=== PATIENT | male | born 1955 | race Caucasian/White ===

== ENCOUNTER 2023-03-13 09:51 | Inpatient (IN) ==
[2023-03-13 10:39] LABS: Basophils # (auto) 0.08 K/uL (0.00-0.20); Basophils % (auto) 0.8 %; Eosinophils # (auto) 0.13 K/uL (0.00-0.50); Eosinophils % (auto) 1.4 %; Hematocrit (blood only) 38.2 % (42.0-52.0); Hemoglobin 12.5 g/dl (14.0-18.0); Immature Granulocytes # (auto) 0.06 K/uL (0.01-0.20); Immature Granulocytes % (auto) 0.6 %; Lymphocytes # (auto) 1.18 K/uL (1.20-3.40); Lymphocytes % (auto) 12.5 %; Mean Corpuscular Hemoglobin 26.7 pg (25.0-34.0); Mean Corpuscular Hgb Conc 32.7 g/dL (32.0-36.0); Mean Corpuscular Volume 81.6 fL (80.0-100.0); Mean Platelet Volume 9.9 fL (9.4-12.4); Monocytes # (auto) 0.91 K/uL (0.11-0.59); Monocytes % (auto) 9.6 %; Neutrophils % (auto) 75.1 %; Platelet Count 300 K/uL (130-400); RDW Coefficient of Variation 13.3 % (11.5-14.5); RDW Standard Deviation 39.8 fL (36.4-46.3); Red Blood Count 4.68 M/uL (4.70-6.10); White Blood Count 9.46 K/ul (4.8-10.8)
[2023-03-13 10:57] LABS: Albumin Globulin Ratio 1.1 (0.9-2); Albumin Level 4.2 gm/dl (3.4-5.0); BUN Creatinine Ratio 20.3 (10-20); Bilirubin,Total 0.7 mg/dl (0.2-1.0); Creatinine Clr Calc Pharmacy 65.9 ml/min; Est GFR (Non-African American) 60.4 ml/min; Total Protein 8.2 gm/dl (6.0-8.3)
--- NOTE | 2023-03-13 12:46 | Emergency Department Note ---
Impression & Plan Left buttock abscess ADMIT ED Provider Note HPI: History obtained from patient. The patient is a 68-year-old gentleman who presents emergency department with chief complaint of left-sided irritation and pain on the skin of his buttocks. Patient states is been ongoing for about the past 3 days. Patient states he did notice a lump in this area about 1 week ago, patient states that it just became painful over the past 3 days. Patient states that he had an appointment today as an outpatient to see general surgery, he was assessed by Dr. Forbes and sent to the ER for CT imaging to rule out perirectal abscess. Patient states that he has been on an outpatient course of doxycycline for the past 5 days that was prescribed by PCP. On arrival here to the ED the patient is hemodynamically stable, he is in no acute distress on my initial assessment, he denies any perirectal pain or irritation, denies any pain with defecation. ROS: - Per HPI Differential Diagnosis: Perirectal abscess, cellulitis, necrotizing soft tissue infection, rectal fistula, amongst other potential pathologies. *Outpatient medications and allergy history reviewed. *Pertinent external medical records reviewed PE: General: Alert HEENT: Normocephalic, trachea midline Eyes: Extraocular eye movement is intact, no scleral erythema Pulmonary: Clear to auscultation bilaterally, no wheezing Cardio: Regular rate and rhythm GI: Abdomen is soft to palpation, noninvasive gross rectal examination does not show any evidence of any obvious fluctuant mass or hemorrhoid, no evidence of any gross bleeding is visualized : No suprapubic tenderness MSK: No evidence of trauma or malformation of the extremities, no edema Skin: There is tenderness and overlying erythema with moderate fluctuance to the left gluteal fold without any purulent drainage Neuro: Alert, no focal deficits Psychiatric: Cooperative INDEPENDENT INTERPRETATIONS: cardiac monitor technician: (As interpreted by myself): - An order was placed for continuous cardiac monitoring - Patient was noted to be in sinus rhythm with a rate of 90 Interventions provided in ED: -IV Zosyn, IV fluid Medical Decision Making: Shortly after the patient arrived IV was established lab work obtained, patient was placed on lunchroom monitor. Lab work shows no leukocytosis, hemoglobin is 12.5, platelet count is normal, CMP shows mildly elevated BUN at 25, no evidence of any critical abnormalities are otherwise noted. CT imaging of the abdomen pelvis was obtained that shows evidence of cellulitic changes of the left buttocks area with an underlying abscess measuring approximately 6 cm in diameter. I discussed the above findings with the on-call general surgery physician producer assistant, Sanam Jaime, and they are in agreement for consultation under the service of Dr. Russell. Admission was recommended following my discussion to the medicine service for initiation of IV antibiotics given overlying cellulitis and operative intervention will be arranged on an inpatient basis. Patient is in agreement to this plan. He is otherwise hemodynamically stable and in no acute distress. He was initiated on IV Zosyn and blood cultures were drawn in the ED. Case was discussed with the on-call midlevel provider for the [facility] hospitalist service, the patient was admitted to the hospitalist service in stable condition for further management and general surgery consultation. Consultants/Discussions held with other healthcare providers: -General surgery, Sanam Monteiro PA-C / Dr. Russell -Hospitalist service, Dr. Maddox Disposition discussion held by myself with: -Patient Diagnosis: 1. Abscess of the left buttocks, acute 2. Cellulitis of the left buttocks, acute Disposition: Admission Ronny Grady DO Emergency Medicine Past Med/Surg History Medical History GERD without esophagitis Prediabetes Dyslipidemia Essential hypertension Mild obstructive sleep apnea Right retinal detachment Surgical History History of inguinal hernia repair History of vitrectomy History of appendectomy Family History Other Cancer Heart disease Hypertension Social History Smoking Status: Never smoker Feels Safe at Home: Yes Allergies Allergies Allergy/AdvReac Type Severity Reaction Status Date / Time No Known Drug Allergies Allergy Unknown . Verified 03/13/23 13:36 Home Meds Home Medications Medication Instructions Recorded Confirmed krill 500 mg-omega-3 150 mg-dha 45 1 cap PO QAM ##0 07/14/15 03/13/23 mg-epa 75 [id number] capsule (krill oil) atorvastatin 20 mg tablet 20 mg PO QAM 03/13/23 03/13/23 cyanocobalamin (vitamin B-12) 1,000 mcg PO QAM 03/13/23 03/13/23 1,000 mcg tablet (Vitamin B-12) doxycycline hyclate 100 mg capsule 100 mg PO BID 03/13/23 03/13/23 lisinopril 20 mg tablet 20 mg PO HS 03/13/23 03/13/23 lisinopril 20 1 tab PO QAM 03/13/23 03/13/23 mg-hydrochlorothiazide 25 mg tablet metformin 500 mg tablet,extended 1,500 mg PO QAM 03/13/23 03/13/23 release 24 hr paroxetine HCl 40 mg tablet 40 mg PO QAM 03/13/23 03/13/23 Results & Data (ED) Vital Signs Vital Signs - 24 hr 03/13/23 09:58 03/13/23 13:40 03/13/23 15:39 Temperature 36.9 C 36.8 C Temperature Source Temporal Artery Scan Oral Pulse Rate 101 H Pulse Rate [Left] 86 89 Respiratory Rate 20 18 20 Respiratory Effort / Characteristics Non-Labored Non-Labored Non-Labored Respiratory Depth Normal Normal Normal Respiratory Pattern Regular Blood Pressure 123/67 Blood Pressure [Left Arm] 162/81 H 133/72 Blood Pressure Mean 85 Blood Pressure Mean [Left Arm] 108 92 Pulse Oximetry 97 97 95 Oxygen Delivery Method Room Air Room Air Room Air Sepsis Recent Fever Within 48 Hours No Sepsis New/Unexplained Change in Mental Status No Sepsis Action Taken by Nursing No Action Required Laboratory Data 03/13/23 10:22 03/13/23 10:22 Lab Results 03/13/23 Range/Units 10:22 WBC 9.46 (4.8-10.8) K/ul RBC 4.68 L (4.70-6.10) M/uL Hgb 12.5 L (14.0-18.0) g/dl Hct 38.2 L (42.0-52.0) % MCV 81.6 (80.0-100.0) fL MCH 26.7 (25.0-34.0) pg MCHC 32.7 (32.0-36.0) g/dL RDW Std Deviation 39.8 (36.4-46.3) fL RDW Coeff of Drew 13.3 (11.5-14.5) % Plt Count 300 (130-400) K/uL MPV 9.9 (9.4-12.4) fL Immature Gran % (Auto) 0.6 % Neut % (Auto) 75.1 % Lymph % (Auto) 12.5 % [place] % (Auto) 9.6 % Eos % (Auto) 1.4 % Baso % (Auto) 0.8 % Neut # (Auto) 7.10 H (1.40-6.50) K/uL Lymph # (Auto) 1.18 L (1.20-3.40) K/uL [place] # (Auto) 0.91 H (0.11-0.59) K/uL Eos # (Auto) 0.13 (0.00-0.50) K/uL Baso # (Auto) 0.08 (0.00-0.20) K/uL Immature Gran # (Auto) 0.06 (0.01-0.20) K/uL Sodium 136 (136-145) mmol/L Potassium 4.0 (3.5-5.1) mmol/L Chloride 101 (98-107) mmol/L Carbon Dioxide 25 (21-32) mmol/L Anion Gap 10 (3-11) BUN 25 H (6-23) mg/dl Creatinine 1.23 (0.6-1.4) mg/dl Est Cr Clr Drug Dosing 65.9 ml/min Est GFR ( Amer) 70.0 ml/min Est GFR (Non-Af Amer) 60.4 ml/min BUN/Creatinine Ratio 20.3 H (10-20) Glucose 136 H (70-99(Fasting)) mg/dl Calcium 9.0 (8.6-10.3) mg/dl Total Bilirubin 0.7 (0.2-1.0) mg/dl AST 15 (13-39) U/L ALT 17 (7-52) U/L Alkaline Phosphatase 59 (34-104) U/L Total Protein 8.2 (6.0-8.3) gm/dl Albumin 4.2 (3.4-5.0) gm/dl Globulin 4.0 (2.5-4.0) gm/dl Albumin/Globulin Ratio 1.1 (0.9-2) Administered Medications Discontinued Medications Sodium Chloride (Nss) 500 mls @ 999 mls/hr IV .Q31M ONE Stop: 03/13/23 15:45 Last Infusion: 03/13/23 16:43 Dose: Infused Documented By: Admin: 03/13/23 15:48 Dose: 999 mls/hr Documented By: PAULINA Piperacillin Sod/Tazobactam Sod (Zosyn) 4.5 gm in 100 mls @ 200 mls/hr IV NOW ONE Stop: 03/13/23 15:44 Last Infusion: 03/13/23 16:43 Dose: Infused Documented By: Admin: 03/13/23 15:48 Dose: 200 mls/hr Documented By: PAULINA Ioversol (Optiray 320 100ml) 93 ml IV ONCE ONE Stop: 03/13/23 14:05 Last Admin: 03/13/23 14:05 Dose: 93 ml Documented By: [employer] Imaging Data Radiologist's Impression: Abdomen/Pelvis CT 03/13/23 12:23 CT SCAN OF THE ABDOMEN AND PELVIS WITH IV CONTRAST CLINICAL HISTORY: Perirectal cellulitis/abscess. COMPARISON STUDY: No priors. TECHNIQUE: Following the IV administration of 93 cc of Optiray 320, CT scan of the abdomen and pelvis is performed from the lung bases to the proximal femora. Images are reviewed in the axial, sagittal, and coronal planes. IV contrast was administered without complication. A dose lowering technique was utilized adhering to the principles of ALARA. CT DOSE: 276.52 mGy.cm FINDINGS: Lung bases: The heart is normal in size and without pericardial effusion. The coronary arteries are densely calcified. There is a small hiatal hernia. There is mild bibasilar atelectasis. The lung bases are otherwise clear. Liver: The contrast-enhanced liver is normal in size, contour, and attenuation. There is no intrahepatic biliary ductal dilatation. The hepatic veins and portal veins are patent. Gallbladder: Unremarkable. Spleen: Normal in size and attenuation. Pancreas: Unremarkable. Adrenal glands: Unremarkable. Kidneys: The contrast enhanced kidneys are normal in size and without hydronephrosis. The kidneys enhance symmetrically. Abdominal vasculature: The abdominal aorta is normal in course and caliber noting mild atherosclerotic calcification. Bowel: There is no bowel obstruction. Mild fecal retention is seen throughout the colon. The appendix is not visualized. Peritoneum: There is no intraperitoneal free air or abdominal ascites. There is a fat-containing umbilical hernia. Lymphadenopathy: None. Pelvic viscera: The prostate gland is enlarged and heterogeneous. The bladder is decompressed, and the wall is thickened/trabeculated indicating chronic outlet obstruction. Skeletal structures: No lytic or blastic lesions are seen. Soft tissues: There is significant soft tissue infiltration and normal thickening identified in the left mid to lower buttock. There is a loculated fluid collection identified in the medial left buttock along the inferior gluteal crease. This measures 5.5 x 6.0 x 2.6 cm as seen on image #23 of the perineal series. This approaches the inferior aspect of the anal ring at the 5:00 position. The collections located below the levator musculature. No soft tissue gas is seen. IMPRESSION: 1. Severe cellulitis of the left buttock with an abscess located along the inferior left gluteal crease as detailed above. 2. Advanced coronary artery atherosclerosis. Consider nonemergent follow up with cardiology. 3. Additional findings as above. ACT 112: Negative or not required by law. Electronically signed by: Grady Harrington M.D. 03/13/2023 2:29 PM Discharge Plan Visit Data Chief Complaint: Pilonidal Cyst Stated Complaint: DOC REF,POSS CYST/ABSCESS ON RECTAL ED Provider: Ronny Grady Discharge Problem: Left buttock abscess Discharge Instructions Interventions: ED Discharge Assessment Last Done: 03/13/23 18:12 Forms Stand Alone Forms: My [facility] [email or web address] Prescriptions Prescriptions: No Action krill oil [id number] mg Capsule 1 cap PO QAM Qty: 0 doxycycline hyclate 100 mg capsule 100 mg PO BID Rx Instructions: Start Date 03/07/23 - End Date 03/17/23 atorvastatin 20 mg tablet 20 mg PO QAM lisinopril 20 mg tablet 20 mg PO HS cyanocobalamin (vitamin B-12) [Vitamin B-12] 1,000 mcg Tablet 1,000 mcg PO QAM lisinopril-hydrochlorothiazide 20-25 mg tablet 1 tab PO QAM paroxetine HCl 40 mg tablet 40 mg PO QAM metformin 500 mg tablet extended release 24 hr 1,500 mg PO QAM Referrals Referrals: Te Lassiter MD [Primary Care Provider] -
[2023-03-13] MEDS ORDERED: OPTIRAY 320 100ml IV ONE (14:04)
--- NOTE | 2023-03-13 14:31 | CT Scan Report ---
CT SCAN OF THE ABDOMEN AND PELVIS WITH IV CONTRAST CLINICAL HISTORY: Perirectal cellulitis/abscess. COMPARISON STUDY: No priors. TECHNIQUE: Following the IV administration of 93 cc of Optiray 320, CT scan of the abdomen and pelvi s is performed from the lung bases to the proximal femora. Images are reviewed in the axial, sagittal , and coronal planes. IV contrast was administered without complication. A dose lowering technique wa s utilized adhering to the principles of ALARA. CT DOSE: 276.52 mGy.cm FINDINGS: Lung bases: The heart is normal in size and without pericardial effusion. The coronary arteries are d ensely calcified. There is a small hiatal hernia. There is mild bibasilar atelectasis. The lung bases are otherwise clear. Liver: The contrast-enhanced liver is normal in size, contour, and attenuation. There is no intrahepa tic biliary ductal dilatation. The hepatic veins and portal veins are patent. Gallbladder: Unremarkable. Spleen: Normal in size and attenuation. Pancreas: Unremarkable. Adrenal glands: Unremarkable. Kidneys: The contrast enhanced kidneys are normal in size and without hydronephrosis. The kidneys enh ance symmetrically. Abdominal vasculature: The abdominal aorta is normal in course and caliber noting mild atheroscleroti c calcification. Bowel: There is no bowel obstruction. Mild fecal retention is seen throughout the colon. The appendix is not visualized. Peritoneum: There is no intraperitoneal free air or abdominal ascites. There is a fat-containing umbi lical hernia. Lymphadenopathy: None. Pelvic viscera: The prostate gland is enlarged and heterogeneous. The bladder is decompressed, and th e wall is thickened/trabeculated indicating chronic outlet obstruction. Skeletal structures: No lytic or blastic lesions are seen. Soft tissues: There is significant soft tissue infiltration and normal thickening identified in the l eft mid to lower buttock. There is a loculated fluid collection identified in the medial left buttock along the inferior gluteal crease. This measures 5.5 x 6.0 x 2.6 cm as seen on image #23 of the melvin dl series. This approaches the inferior aspect of the anal ring at the 5:00 position. The collectio ns located below the levator musculature. No soft tissue gas is seen. IMPRESSION: 1. Severe cellulitis of the left buttock with an abscess located along the inferior left gluteal crea se as detailed above. 2. Advanced coronary artery atherosclerosis. Consider nonemergent follow up with cardiology. 3. Additional findings as above. ACT 112: Negative or not required by law. Electronically signed by: Grady Harrington M.D. 03/13/2023 2:29 PM
[2023-03-13] MEDS ORDERED: SODIUM CHLORIDE 0.9% 500 ML IV ONE (15:15)
[2023-03-13] MEDS ORDERED: PIPERACILLIN/TAZOBACTAM 4.5 GM/100 ML BAG IV ONE (15:15)
--- NOTE | 2023-03-13 15:45 | History & Physical Report ---
Date of Service March 13, 2023 Assessment & Plan (1) Left buttock abscess: Plan: This is a 68 y/o male with a history of HTN, prediabetes, MORIS on CPAP, dyslipidemia, GERD, and right retinal detachment who presented to the ED today with worsening lump in his left buttock. Imaging in the ED reveals left buttock abscess with overlying left buttock cellulitis. Afebrile, normal WBC count. Pt has failed course of outpatient antibiotics and instead is worsening. - Admit to med surg floor - IV antibiotic coverage - will continue Zosyn for now - Surgical evaluation pending - per ED provider's conversation with surgery, potential drainage tonight or tomorrow. Will keep pt NPO until seen by surgery in case able to be done tonight. - Labs in AM - CBC, BMP (2) Cellulitis of left buttock: (3) Prediabetes: Plan: BSG ACHS Insulin sliding scale - holding Metformin Diabetic diet once able to eat A1c in the AM (4) Dyslipidemia: (5) Essential hypertension: (6) Mild obstructive sleep apnea: Plan: He uses CPAP at home but declines need to use it while here. (7) GERD without esophagitis: Plan Pt seen and reviewed with collaborating physician, Dr. Maddox. Plan of care discussed and as outlined above. Code Status: Full code DVT Prophylaxis: Isai Osorio PA-C History of Present Illness Chief Complaint: left buttock abscess Primary Care Provider: Te Lassiter MD This is a 68 y/o male with a history of HTN, prediabetes, MORIS on CPAP, dyslipidemia, GERD, and right retinal detachment who presented to the ED today with worsening lump in his left buttock. Pt reports that he noted an indurated area in his left buttock just over a week ago but it was only a few cm in diameter. He saw someone is his PCP office on 03/07 and was placed on doxycycline, referred for outpatient surgical evaluation. For the first few days on the antibiotic, he didn't notice a significant change but over the last 2-3 days he has noted enlargement of the indurated area, increasing pain, and the development of overlying redness that was not there initially. He denies documented fevers but has had chills, malaise, and fatigue over the last few days. He has never had anything like this previously. He denies rectal pain or difficulties with moving bowels. No drainage from the area. He has been using warm compresses to try to help it drain. He denies chest pain, dyspnea, palpitations, syncope, N/V/D. He does not check his blood sugars at home. Allergies Allergy/AdvReac Type Severity Reaction Status Date / Time No Known Drug Allergies Allergy Unknown . Verified 03/13/23 13:36 Home Medications Medication Instructions Recorded Confirmed Type krill 500 mg-omega-3 150 mg-dha 45 1 cap PO QAM ##0 07/14/15 03/13/23 History mg-epa 75 [id number] capsule (krill oil) atorvastatin 20 mg tablet 20 mg PO QAM 03/13/23 03/13/23 History cyanocobalamin (vitamin B-12) 1,000 mcg PO QAM 03/13/23 03/13/23 History 1,000 mcg tablet (Vitamin B-12) doxycycline hyclate 100 mg capsule 100 mg PO BID 03/13/23 03/13/23 History lisinopril 20 mg tablet 20 mg PO HS 03/13/23 03/13/23 History lisinopril 20 1 tab PO QAM 03/13/23 03/13/23 History mg-hydrochlorothiazide 25 mg tablet metformin 500 mg tablet,extended 1,500 mg PO QAM 03/13/23 03/13/23 History release 24 hr paroxetine HCl 40 mg tablet 40 mg PO QAM 03/13/23 03/13/23 History Past Med/Surg History Medical History GERD without esophagitis Prediabetes Dyslipidemia Essential hypertension Mild obstructive sleep apnea Right retinal detachment Surgical History History of inguinal hernia repair History of vitrectomy History of appendectomy Family History Other Cancer Heart disease Hypertension Social History Smoking Status: Never smoker Feels Safe at Home: Yes Review of Systems Review of Systems: All systems reviewed & are unremarkable except as noted in HPI & below Constitutional: + chills, + fatigue and + malaise; no fe julia Ear, Nose, Mouth, Throat: no nasal congestion and no sore throat Respiratory: no cough and no dyspnea Cardiovascular: no chest pain, no palpitations, no syncope and no edema Gastrointestinal: no abdominal pain, no nausea, no vomiting and no diarrhea/loose stools Genitourinary: no dysuria or no hematuria Musculoskeletal: no back pain, no neck pain and no joint pain Integumentary: as per Subjective / HPI Neurologic: no generalized weakness, no dizziness and no headache(s) Psychiatric: no depression and no anxiety Physical Exam Physical Exam: General: awake, alert, NAD Eyes: no scleral icterus Mouth: moist mucus membranes Neck: trachea midline Heart: RRR, no M/G/R Lungs: CTA bilaterally, no W/R/R Abd: soft, NT, +BS Extremities: no pedal edema, distal pulses intact and equal Skin: see physician note for examination of buttocks Results & Data Results & Data Vital Signs (Past 12 Hours) Vital Signs Temp Pulse Pulse Resp BP BP Pulse Ox 03/13/23 13:40 36.8 C 86 18 162/81 H 97 03/13/23 09:58 36.9 C 101 H 20 123/67 97 O2 Del Method 03/13/23 13:40 Room Air 03/13/23 09:58 Room Air Laboratory Results Laboratory Results - last 24 hr 03/13/23 10:22 WBC 9.46 RBC 4.68 L Hgb 12.5 L Hct 38.2 L MCV 81.6 MCH 26.7 MCHC 32.7 RDW Std Deviation 39.8 RDW Coeff of Drew 13.3 Plt Count 300 MPV 9.9 Immature Gran % (Auto) 0.6 Neut % (Auto) 75.1 Lymph % (Auto) 12.5 [place] % (Auto) 9.6 Eos % (Auto) 1.4 Baso % (Auto) 0.8 Neut # (Auto) 7.10 H Lymph # (Auto) 1.18 L [place] # (Auto) 0.91 H Eos # (Auto) 0.13 Baso # (Auto) 0.08 Immature Gran # (Auto) 0.06 Sodium 136 Potassium 4.0 Chloride 101 Carbon Dioxide 25 Anion Gap 10 BUN 25 H Creatinine 1.23 Est Cr Clr Drug Dosing 65.9 Est GFR ( Amer) 70.0 Est GFR (Non-Af Amer) 60.4 BUN/Creatinine Ratio 20.3 H Glucose 136 H Calcium 9.0 Total Bilirubin 0.7 AST 15 ALT 17 Alkaline Phosphatase 59 Total Protein 8.2 Albumin 4.2 Globulin 4.0 Albumin/Globulin Ratio 1.1 Diagnostic Findings Abdomen/Pelvis CT 03/13/23 12:23 CT SCAN OF THE ABDOMEN AND PELVIS WITH IV CONTRAST CLINICAL HISTORY: Perirectal cellulitis/abscess. COMPARISON STUDY: No priors. TECHNIQUE: Following the IV administration of 93 cc of Optiray 320, CT scan of the abdomen and pelvis is performed from the lung bases to the proximal femora. Images are reviewed in the axial, sagittal, and coronal planes. IV contrast was administered without complication. A dose lowering technique was utilized adhering to the principles of ALARA. CT DOSE: 276.52 mGy.cm FINDINGS: Lung bases: The heart is normal in size and without pericardial effusion. The coronary arteries are densely calcified. There is a small hiatal hernia. There is mild bibasilar atelectasis. The lung bases are otherwise clear. Liver: The contrast-enhanced liver is normal in size, contour, and attenuation. There is no intrahepatic biliary ductal dilatation. The hepatic veins and portal veins are patent. Gallbladder: Unremarkable. Spleen: Normal in size and attenuation. Pancreas: Unremarkable. Adrenal glands: Unremarkable. Kidneys: The contrast enhanced kidneys are normal in size and without hydronephrosis. The kidneys enhance symmetrically. Abdominal vasculature: The abdominal aorta is normal in course and caliber noting mild atherosclerotic calcification. Bowel: There is no bowel obstruction. Mild fecal retention is seen throughout the colon. The appendix is not visualized. Peritoneum: There is no intraperitoneal free air or abdominal ascites. There is a fat-containing umbilical hernia. Lymphadenopathy: None. Pelvic viscera: The prostate gland is enlarged and heterogeneous. The bladder is decompressed, and the wall is thickened/trabeculated indicating chronic outlet obstruction. Skeletal structures: No lytic or blastic lesions are seen. Soft tissues: There is significant soft tissue infiltration and normal thickenin g identified in the left mid to lower buttock. There is a loculated fluid collection identified in the medial left buttock along the inferior gluteal crease. This measures 5.5 x 6.0 x 2.6 cm as seen on image #23 of the perineal series. This approaches the inferior aspect of the anal ring at the 5:00 position. The collections located below the levator musculature. No soft tissue gas is seen. IMPRESSION: 1. Severe cellulitis of the left buttock with an abscess located along the inferior left gluteal crease as detailed above. 2. Advanced coronary artery atherosclerosis. Consider nonemergent follow up with cardiology. 3. Additional findings as above. ACT 112: Negative or not required by law. Electronically signed by: Grady Harrington M.D. 03/13/2023 2:29 PM Medications Administered Discontinued Medications Ioversol (Optiray 320 100ml) 93 ml IV ONCE ONE Stop: 03/13/23 14:05 Last Admin: 03/13/23 14:05 Dose: 93 ml Documented By: GEP Supervising Physician Co-Signing Physician Notes 68-year-old male with PMH of HTN, prediabetes, MORIS on CPAP, HLD, GERD presented to the ED with worsening lump in his left buttock, ongoing for about a week per patient. Imaging reveals left buttock abscess with overlying cellulitis. He is admitted with surgical consult, IV Zosyn, pending I&D per surgery. Labs in AM. Resume home medications as able. On exam: GENERAL: Alert and oriented x3. NAD, on RA. HEENT: No pallor, no icterus. Pupils equal, round and reactive to light. Oral mucosa moist. NECK: No JVD, no neck masses. HEART: S1 and S2 heard. Regular rate and rhythm. No murmur, no gallop. RESPIRATORY SYSTEM: Normal AP diameter. No accessory muscle use. No wheezing, no crackles. ABDOMEN: Soft, bowel sounds present, nontender, no distention. CENTRAL NERVOUS SYSTEM: No facial droop. Speech is clear. Obeys simple commands. Moves extremities. EXTREMITIES: No edema, no erythema seen. Left buttock/gluteal fold with induration with overlying erythema/warmth/minimal tenderness. I have seen and examined the patient and have discussed the case with the provider above. I agree with the assessment and plan as stated.
--- NOTE | 2023-03-13 17:27 | Surgery Consultation ---
<Statement entered by Edwin Russell MD - 03/14/23 09:57> Patient seen and examined. Abscess will need to drained, timing dependent of medical condition. Agree with abx and plan above. Date of Consultation March 13, 2023 Assessment & Plan (1) Cellulitis of left buttock: (2) Left buttock abscess: Plan 68 year-old male with prediabetes presented to ED with worsening left buttock pain with palpable lump that started about 7 days ago and then increased in size with associated chills and malaise over weekend. CT scan of significant left buttock cellulitis and 5.x5 x 6.0 x 2.6 cm abscess approaching the anus. Exam is consistent with CT scan findings. Hemodynamically stable. Plan: Discussed with patient and his ct scan findings and need for I&D given large abscess along with IV antibiotics for the significant cellulitis. Will plan for I&D in operating room tomorrow. Okay for diet tonight, NPO after midnight pain management as needed IV Zosyn Discussed with Dr. Russell who agrees with above. History of Present Illness Reason for Consultation: Left buttock abscess with cellulitis Requesting Physician: LISSETH Osorio Attending Physician: Dr. Tan MD History of Present Illness Luis is a pleasant 68 year-old male with history of prediabetes< GERD, dyslipidemia, essential hypertensions, and MORIS who was referred here to ER for further evaluation of left buttock cellulitis and possible abscess by Dr. Forbes. States he noticed a small lump in the left buttock about 1 week ago and saw PCP office and started on Doxycycline last Monday and was referred to surgery for office visit this morning. States area significantly increased in size over weekend with associated tenderness, chills, and malaise. No drainage. No constipation, blood in stools, pus in stools or difficulty moving bowels. No prior similar history or similar pain ER work-up included labs which showed no leukocytosis, afebrile. CT scan of abdomen and pelvis with IV contrast showing significant soft tissue infiltration and normal thickening identified in the left mid to lower buttock. There is a loculated fluid collection identified in the medial left buttock along the inferior gluteal crease. This measures 5.5 x 6.0 x 2.6 cm as seen on image #23 of the perineal series. This approaches the inferior aspect of the anal ring at the 5:00 position. The collections located below the levator musculature. No soft tissue gas is seen. Currently states he is feeling okay, no severe buttock pain. Okay if lying on side, pain when sitting or any direct pressure to area. No n,v, no fevers or chills. Allergies Allergy/AdvReac Type Severity Reaction Status Date / Time No Known Drug Allergies Allergy Unknown . Verified 03/13/23 13:36 Home Medications Medication Instructions Recorded Confirmed Type krill 500 mg-omega-3 150 mg-dha 45 1 cap PO QAM ##0 07/14/15 03/13/23 History mg-epa 75 [id number] capsule (krill oil) atorvastatin 20 mg tablet 20 mg PO QAM 03/13/23 03/13/23 History cyanocobalamin (vitamin B-12) 1,000 mcg PO QAM 03/13/23 03/13/23 History 1,000 mcg tablet (Vitamin B-12) doxycycline hyclate 100 mg capsule 100 mg PO BID 03/13/23 03/13/23 History lisinopril 20 mg tablet 20 mg PO HS 03/13/23 03/13/23 History lisinopril 20 1 tab PO QAM 03/13/23 03/13/23 History mg-hydrochlorothiazide 25 mg tablet metformin 500 mg tablet,extended 1,500 mg PO QAM 03/13/23 03/13/23 History release 24 hr paroxetine HCl 40 mg tablet 40 mg PO QAM 03/13/23 03/13/23 History Patient History Medical History GERD without esophagitis Prediabetes Dyslipidemia Essential hypertension Mild obstructive sleep apnea Right retinal detachment Surgical History History of inguinal hernia repair History of vitrectomy History of appendectomy Family History Other Cancer Heart disease Hypertension Social History Smoking Status: Never smoker Feels Safe at Home: Yes Review of Systems Review of Systems: All systems reviewed & are unremarkable except as noted in HPI & below Physical Exam Constitutional: WD/WN, vitals as above cooperative and comfortable; no acute distress and not ill appearing Respiratory: normal respiratory effort, lungs clear to auscultation Cardiovascular: RRR, no murmur, no edema Musculoskeletal: Left buttock with significant induration and erythema with tenderness to palpation. Digital rectal examination not performed No drainage no skin necrosis Skin: no rashes, warm and dry Psychiatric: A+Ox3, euthymic affect Results & Data Vital Signs (Past 12 Hours) Vital Signs Temp Pulse Pulse Resp BP BP Pulse Ox 03/13/23 15:39 89 20 133/72 95 03/13/23 13:40 36.8 C 86 18 162/81 H 97 03/13/23 09:58 36.9 C 101 H 20 123/67 97 O2 Del Method 03/13/23 15:39 Room Air 03/13/23 13:40 Room Air 03/13/23 09:58 Room Air Laboratory Results 03/13/23 Range/Units 10:22 WBC 9.46 (4.8-10.8) K/ul RBC 4.68 L (4.70-6.10) M/uL Hgb 12.5 L (14.0-18.0) g/dl Hct 38.2 L (42.0-52.0) % MCV 81.6 (80.0-100.0) fL MCH 26.7 (25.0-34.0) pg MCHC 32.7 (32.0-36.0) g/dL RDW Std Deviation 39.8 (36.4-46.3) fL RDW Coeff of Drew 13.3 (11.5-14.5) % Plt Count 300 (130-400) K/uL MPV 9.9 (9.4-12.4) fL Immature Gran % (Auto) 0.6 % Neut % (Auto) 75.1 % Lymph % (Auto) 12.5 % [place] % (Auto) 9.6 % Eos % (Auto) 1.4 % Baso % (Auto) 0.8 % Neut # (Auto) 7.10 H (1.40-6.50) K/uL Lymph # (Auto) 1.18 L (1.20-3.40) K/uL [place] # (Auto) 0.91 H (0.11-0.59) K/uL Eos # (Auto) 0.13 (0.00-0.50) K/uL Baso # (Auto) 0.08 (0.00-0.20) K/uL Immature Gran # (Auto) 0.06 (0.01-0.20) K/uL Sodium 136 (136-145) mmol/L Potassium 4.0 (3.5-5.1) mmol/L Chloride 101 (98-107) mmol/L Carbon Dioxide 25 (21-32) mmol/L Anion Gap 10 (3-11) BUN 25 H (6-23) mg/dl Creatinine 1.23 (0.6-1.4) mg/dl Est Cr Clr Drug Dosing 65.9 ml/min Est GFR ( Amer) 70.0 ml/min Est GFR (Non-Af Amer) 60.4 ml/min BUN/Creatinine Ratio 20.3 H (10-20) Glucose 136 H (70-99(Fasting)) mg/dl Calcium 9.0 (8.6-10.3) mg/dl Total Bilirubin 0.7 (0.2-1.0) mg/dl AST 15 (13-39) U/L ALT 17 (7-52) U/L Alkaline Phosphatase 59 (34-104) U/L Total Protein 8.2 (6.0-8.3) gm/dl Albumin 4.2 (3.4-5.0) gm/dl Globulin 4.0 (2.5-4.0) gm/dl Albumin/Globulin Ratio 1.1 (0.9-2) Diagnostic Findings CT SCAN OF THE ABDOMEN AND PELVIS WITH IV CONTRAST CLINICAL HISTORY: Perirectal cellulitis/abscess. COMPARISON STUDY: No priors. TECHNIQUE: Following the IV administration of 93 cc of Optiray 320, CT scan of the abdomen and pelvis is performed from the lung bases to the proximal femora. Images are reviewed in the axial, sagittal, and coronal planes. IV contrast was administered without complication. A dose lowering technique was utilized adhering to the principles of ALARA. CT DOSE: 276.52 mGy.cm FINDINGS: Lung bases: The heart is normal in size and without pericardial effusion. The coronary arteries are densely calcified. There is a small hiatal hernia. There is mild bibasilar atelectasis. The lung bases are otherwise clear. Liver: The contrast-enhanced liver is normal in size, contour, and attenuation. There is no intrahepatic biliary ductal dilatation. The hepatic veins and portal veins are patent. Gallbladder: Unremarkable. Spleen: Normal in size and attenuation. Pancreas: Unremarkable. Adrenal glands: Unremarkable. Kidneys: The contrast enhanced kidneys are normal in size and without hydronephrosis. The kidneys enhance symmetrically. Abdominal vasculature: The abdominal aorta is normal in course and caliber noting mild atherosclerotic calcification. Bowel: There is no bowel obstruction. Mild fecal retention is seen throughout the colon. The appendix is not visualized. Peritoneum: There is no intraperitoneal free air or abdominal ascites. There is a fat-containing umbilical hernia. Lymphadenopathy: None. Pelvic viscera: The prostate gland is enlarged and heterogeneous. The bladder is decompressed, and the wall is thickened/trabeculated indicating chronic outlet obstruction. Skeletal structures: No lytic or blastic lesions are seen. Soft tissues: There is significant soft tissue infiltration and normal thicke teena identified in the left mid to lower buttock. There is a loculated fluid collection identified in the medial left buttock along the inferior gluteal crease. This measures 5.5 x 6.0 x 2.6 cm as seen on image #23 of the perineal series. This approaches the inferior aspect of the anal ring at the 5:00 position. The collections located below the levator musculature. No soft tissue gas is seen. IMPRESSION: 1. Severe cellulitis of the left buttock with an abscess located along the inferior left gluteal crease as detailed above. 2. Advanced coronary artery atherosclerosis. Consider nonemergent follow up with cardiology. 3. Additional findings as above.
[2023-03-13] MEDS ORDERED: GLUCOSE 40% GEL 15 GM TUBE PO PRN (18:56)
[2023-03-13] MEDS ORDERED: DEXTROSE 50% 50 ML SYRINGE IV PRN (18:56)
[2023-03-13] MEDS ORDERED: GLUCAGON FOR INJ 1 MG VIAL SQ PRN (18:56)
[2023-03-13] MEDS ORDERED: CARBOHYDRATES FOR HYPOGLYCEMIA PO PRN (18:56)
[2023-03-13] MEDS ORDERED: MoRPHine SULFATE 2 MG/ML CARP IV PRN (18:56)
[2023-03-13] MEDS ORDERED: MoRPHine SULFATE 4 MG/ML 1 ML CARP\\VIAL IV PRN (18:56)
[2023-03-13] MEDS ORDERED: GLUCOSE 10 TAB/TUBE PO PRN (18:56)
[2023-03-13] MEDS: INSULIN ASPART PER UNIT CHARGE SC SCH (20:22)
[2023-03-13] MEDS ORDERED: lisinopril 20 MG TAB PO SCH (21:00)
[2023-03-13] MEDS: PIPERACILLIN/TAZOBACTAM 4.5 GM in DEXTROSE 5% MINI-B 100 ML IV SCH (21:34)
[2023-03-14] MEDS: ACETAMINOPHEN 325 MG TAB PO PRN (00:38)
[2023-03-14] MEDS ORDERED: diphenhydrAMINE 50 MG/ML VIAL IV STA (04:30)
--- NOTE | 2023-03-14 04:31 | Communication Note ---
Date of Service: March 14, 2023 Patient with sudden onset left facial and lip swelling. No tongue swelling, rash, chest pain, SOB. No prior episodes as per patient. AP Angioedema possibly from ARLETH inhibitor medication Med telemetry transfer to monitor for airway compromise Stop lisinopril and add to ADR/allergy list CT face re: sudden onset right facial swelling Solu-Medrol and Benadryl 1 dose Outpatient allergy consult for angioedema Amlodipine in place of lisinopril for BP control
[2023-03-14] MEDS ORDERED: SODIUM CHLORIDE 0.9% 1,000 ML IV ONE (04:57)
[2023-03-14] MEDS ORDERED: methylPREDNISolone 40 MG in SYRINGE 0 ML IV STA (04:59)
[2023-03-14] MEDS ORDERED: OPTIRAY 320 100ml IV ONE (05:32)
[2023-03-14 06:09] LABS: Basophils # (auto) 0.08 K/uL (0.00-0.20); Basophils % (auto) 0.9 %; Eosinophils # (auto) 0.16 K/uL (0.00-0.50); Eosinophils % (auto) 1.7 %; Immature Granulocytes # (auto) 0.05 K/uL (0.01-0.20); Immature Granulocytes % (auto) 0.5 %; Mean Corpuscular Hemoglobin 26.9 pg (25.0-34.0); Mean Corpuscular Hgb Conc 33.3 g/dL (32.0-36.0); Mean Corpuscular Volume 80.7 fL (80.0-100.0); Mean Platelet Volume 9.8 fL (9.4-12.4); Monocytes % (auto) 10.7 %; Neutrophils # (auto) 6.65 K/uL (1.40-6.50); Neutrophils % (auto) 71.2 %; Platelet Count 298 K/uL (130-400); RDW Coefficient of Variation 13.3 % (11.5-14.5); RDW Standard Deviation 38.7 fL (36.4-46.3); Red Blood Count 4.46 M/uL (4.70-6.10); White Blood Count 9.34 K/ul (4.8-10.8)
[2023-03-14 06:17] LABS: Calcium 8.4 mg/dl (8.6-10.3); Creatinine Clr Calc Pharmacy 69.9 ml/min; Est GFR (African American) 75.1 ml/min; Est GFR (Non-African American) 64.8 ml/min; Potassium 3.6 mmol/L (3.5-5.1)
--- NOTE | 2023-03-14 07:16 | CT Scan Report ---
CT facial bones w con HISTORY: 68 years-old Male R swelling acute pain and swelling of the right face COMPARISON: None TECHNIQUE: Multiple axial CT images of the facial bones were obtained with the use of 91 mL Optiray 3 20. A dose lowering technique was used consistent with the principals of KEZIA. FINDINGS: The imaged intracranial structures demonstrate no acute abnormality. Streak artifact from dental amal diana hardware limits the study. Right-sided scleral banding with hyperdensity noted involving the righ t posterior chamber. There is moderate subcutaneous and deep tissue edema within the right mandibular tissues. No drainable fluid collection identified. Unremarkable parotid and submandibular glands. Th e mastoid air cells are clear. Minimal mucosal thickening of the inferior maxillary sinuses. Right ma xillary dental implants with right mandibular root canal. IMPRESSION: 1. Subcutaneous and deep tissue edema of the right mandibular tissues suggestive of cellulitis. No di screte abscess identified. 2. No lymphadenopathy. 3. Additional findings as above. ACT 112: Negative or not required by law. The above report was generated using voice recognition software. It may contain grammatical, syntax o r spelling errors. Electronically signed by: Thad Phillip M.D. 03/14/2023 7:14 AM
[2023-03-14 07:24] LABS: Estimated Average Glucose 128 mg/dl; Hemoglobin A1C 6.1 % (4.5-5.6)
--- NOTE | 2023-03-14 07:40 | Hospitalist Progress Note ---
Date of Service March 14, 2023 Assessment & Plan (1) Left buttock abscess: Plan: This is a 68 y/o male with a history of HTN, prediabetes, MORIS on CPAP, dyslipidemia, GERD, and right retinal detachment who presented to the ED today with worsening lump in his left buttock. Imaging in the ED reveals left buttock abscess with overlying left buttock cellulitis. Afebrile, normal WBC count. Pt has failed course of outpatient antibiotics and instead is worsening. -angioedema in response to zosyn with underlying ACEI administration. -both stopped, cipro/flagyl for infection -allergy consult-->feels this is 2/2 ACEI-->plans to see patient as outaptient and order C4 and tryptase levels off antihistamines. -cont to avoid PCN and ACEI at this point -I&D by surgery planned for 03/15 (2) Angioedema: Plan: likely 2/2 ACEI use, but possibly also related to Zosyn. Avoid both agents. A followup with sample checker in outpatient clinic (Dr. Crispin Parry) for further workup of cause. Cont cetirizine and prednisone taper. I went back and evaluated him this afternoon and swelling was almost gone with patient feeling much better. (3) Cellulitis of left buttock: (4) Prediabetes: Plan: BSG ACHS Insulin sliding scale - holding Metformin Diabetic diet once able to eat A1c in the AM (5) Essential hypertension: Plan: chronic, stable and at goal. Cont with HCTZ. Will need to replace ACEI at discharge with close primary care followup. (6) Mild obstructive sleep apnea: Plan: chronic, stable. He uses CPAP at home but declines need to use it while here. full Code SCDs given upcoming procedure Dispo-to home after I&D with recovery I spent a total [id number] coordinating, documenting, and providing care for this patient excluding time spent in the performance of separately billed services DO [facility] Hospitalist Plan Admission and Anticipated Discharge Date Admission Date: March 13, 2023 Subjective 68-year-old man presented with worsening painful lump in his left buttock ongoi ng for the past week found to have a left buttock abscess with overlying cellulitis Woke up with right-sided angioedema after administration of Zosyn empirically No historical penicillin allergy but reports his father has 1 Has been on an ARLETH inhibitor for a long period of time. Was administered Solu-Medrol and IV Benadryl with some improvement Deferred surgery until tomorrow. Patient feels his lip is improving with respect to numbness and swelling. Physical Exam Physical Exam: CONSTITUTIONAL: WNWD, vitals as above, generally well-appearing, NAD EYES: PERRL, normal conjunctivae, no scleral icterus ENT: external ear and nose normal, oropharynx clear, MMM, right lip and righ buccal swelling consistent with angioedema. Left side of face not involved. NECK: trachea midline RESPIRATORY: clear to auscultation bilaterally, no crackles, rales or wheezes, normal respiratory effort CARDIOVASCULAR: regular rate and rhythm, S1 and 2 heard without murmurs, gallops or rubs, no JVD, no peripheral edema CHEST: inspection of chest was normal GASTROINTESTINAL: soft, nontender, ND, no guarding MUSCULOSKELETAL: strength 5/5 throughout, head is normocephalic and atraumatic SKIN: warm and dry, left inferior gluteal abscess with overlying cellulitis NEUROLOGIC: CN 2-12 grossly intact, no sensory deficit, normal cognition, normal speech, no tremor PSYCHIATRIC: alert cooperative and oriented to person, place and time. Euthymic mood, makes good eye contact, language grossly intact, recent and remote memory grossly intact. Results & Data Results & Data Vital Signs (Past 12 Hours) Vital Signs Temp Pulse Pulse Pulse Resp BP Pulse Ox 03/14/23 05:59 03/14/23 05:38 83 03/14/23 05:31 37.2 C 82 14 132/72 94 03/14/23 05:31 03/13/23 19:57 37.5 C 88 18 118/69 94 Pulse Ox O2 Del Method O2 Del Method 03/14/23 05:59 Room Air 03/14/23 05:38 03/14/23 05:31 Room Air 03/14/23 05:31 94 Room Air 03/13/23 19:57 Room Air Laboratory Results Short CBC 03/13/23 03/14/23 Range/Units 10:22 05:40 WBC 9.46 9.34 (4.8-10.8) K/ul Hgb 12.5 L 12.0 L (14.0-18.0) g/dl Hct 38.2 L 36.0 L (42.0-52.0) % Plt Count 300 298 (130-400) K/uL BMP 03/13/23 03/14/23 10:22 05:40 Sodium 136 133 L Potassium 4.0 3.6 Chloride 101 100 Carbon Dioxide 25 23 BUN 25 H 22 Creatinine 1.23 1.16 Glucose 136 H 124 H Calcium 9.0 8.4 L Liver Function 03/13/23 Range/Units 10:22 Total Bilirubin 0.7 (0.2-1.0) mg/dl AST 15 (13-39) U/L ALT 17 (7-52) U/L Alkaline Phosphatase 59 (34-104) U/L Albumin 4.2 (3.4-5.0) gm/dl Diagnostic Findings Face CT 03/14/23 04:53 CT facial bones w con HISTORY: 68 years-old Male R swelling acute pain and swelling of the right face COMPARISON: None TECHNIQUE: Multiple axial CT images of the facial bones were obtained with the use of 91 mL Optiray 320. A dose lowering technique was used consistent with the principals of KEZIA. FINDINGS: The imaged intracranial structures demonstrate no acute abnormality. Streak artifact from dental amalgam hardware limits the study. Right-sided scleral banding with hyperdensity noted involving the right posterior chamber. There is moderate subcutaneous and deep tissue edema within the right mandibular tissues. No drainable fluid collection identified. Unremarkable parotid and submandibular glands. The mastoid air cells are clear. Minimal mucosal thickening of the inferior maxillary sinuses. Right maxillary dental implants with right mandibular root canal. IMPRESSION: 1. Subcutaneous and deep tissue edema of the right mandibular tissues suggestive of cellulitis. No discrete abscess identified. 2. No lymphadenopathy. 3. Additional findings as above. ACT 112: Negative or not required by law. The above report was generated using voice recognition software. It may contain grammatical, syntax or spelling errors. Electronically signed by: Thad Phillip M.D. 03/14/2023 7:14 AM Medications Administered Current Inpatient Medications Acetaminophen (Acetaminophen 325 Mg Tab) 650 mg PO Q4H PRN PRN Reason: pain/fever Stop: 04/12/23 18:55 Last Admin: 03/14/23 00:38 Dose: 650 mg Amlodipine Besylate (Amlodipine Besylate 5 Mg Tab) 2.5 mg PO HS EMMETT Stop: 04/13/23 20:59 Atorvastatin Calcium (Atorvastatin 20 Mg Tab) 20 mg PO QAM EMMETT Stop: 04/13/23 08:59 Dextrose (Dextrose 50% 50 Ml Syringe) 25 - 50 ml IV UD PRN; Protocol PRN Reason: Hypoglycemia Protocol Stop: 04/12/23 18:55 Glucagon (Glucagon For Inj 1 Mg Vial) 1 mg SQ UD PRN; Protocol PRN Reason: Hypoglycemia Protocol Stop: 04/12/23 18:55 Glucose (Glucose 10 Tab/Tube) 4 - 8 tab PO UD PRN; Protocol PRN Reason: Hypoglycemia Treatment Stop: 04/12/23 18:55 Glucose (Glucose 40% Gel 15 Gm Tube) 15 - 30 gm PO UD PRN; Protocol PRN Reason: Hypoglycemia Protocol Stop: 04/12/23 18:55 Piperacillin Sod/Tazobactam (Sod 4.5 gm/ Dextrose) 100 mls @ 25 mls/hr IV Q8H EMMETT; Protocol Stop: 03/20/23 19:59 Last Infusion: 03/14/23 02:00 Dose: Infused Sodium Chloride (Nss) 1,000 mls @ 80 mls/hr IV .[id number] ONE Stop: 03/14/23 17:26 Last Admin: 03/14/23 05:43 Dose: 80 mls/hr Insulin Aspart (Insulin Aspart Per Unit Charge) [facility] Stop: 04/12/23 20:59 Last Admin: 03/13/23 20:22 Dose: Not Given Miscellaneous (Carbohydrates For Hypoglycemia ) 15 - 30 gm PO UD PRN PRN Reason: Hypoglycemia Protocol Stop: 04/12/23 18:55 Morphine Sulfate (Morphine Sulfate 2 Mg/Ml Carp) 2 mg IV Q3H PRN PRN Reason: Moderate Pain (Scale 4, 5, 6) Stop: 03/27/23 18:55 Morphine Sulfate (Morphine Sulfate 4 Mg/Ml 1 Ml Carp\Vial) 4 mg IV Q3H PRN PRN Reason: Severe Pain (Scale 7, 8, 9,10) Stop: 03/27/23 18:55 Paroxetine HCl (Paroxetine Hcl 20 Mg Tab) 40 mg PO QAM [facility] Stop: 04/13/23 08:59 (2) Angioedema Encounter type: initial encounter Qualified Code(s): T78.3XXA - Angioneurotic edema, initial encounter
[2023-03-14] MEDS ORDERED: LISINOPRIL/HCTZ 20/25MG 1 TAB PO SCH (09:00)
[2023-03-14] MEDS: PIPERACILLIN/TAZOBACTAM 4.5 GM in DEXTROSE 5% MINI-B 100 ML IV SCH (09:01)
[2023-03-14] MEDS: INSULIN ASPART PER UNIT CHARGE SC SCH ×4 (09:41→21:00)
[2023-03-14] MEDS: PARoxetine HCL 20 MG TAB PO SCH (10:03)
[2023-03-14] MEDS: ATORVASTATIN 20 MG TAB PO SCH (10:03)
[2023-03-14] MEDS: CETIRIZINE HCL 10 MG TABLET PO SCH (10:04)
[2023-03-14] MEDS: predniSONE 20 MG TAB PO SCH (10:04)
[2023-03-14] MEDS: metroNIDAZOLE 500 MG/100 ML BAG IV SCH ×2 (10:04→16:07)
[2023-03-14] MEDS: CIPROFLOXACIN / D5W 400 MG/200 ML BAG IV SCH ×2 (10:58→20:50)
--- NOTE | 2023-03-14 11:54 | Surgery Progress Note ---
Date of Service March 14, 2023 Assessment & Plan (1) Left buttock abscess: Plan: in ICU medicine wishes to delay I&D will oplan for AM at 10AM Present on Admission?: Yes Admission and Anticipated Discharge Date Admission Date: March 13, 2023 Subjective Feels good in ICU with angioedema possibly zosyn no complaints Review of Systems Constitutional: no fever and no chills Ear, Nose, Mouth, Throat: + problem reported facial swelling Respiratory: no cough and no dyspnea Cardiovascular: no chest pain Gastrointestinal: no abdominal pain Genitourinary: + problem reported (pain and swelling be tter on abx); no dysuria Integumentary: + acne; no rash and no lesions Neurologic: no localized weakness and no generalized weakness Psychiatric: no behavioral changes Physical Exam Constitutional: WD/WN, vitals as above Respiratory: normal respiratory effort, lungs clear to auscultation Cardiovascular: RRR, no murmur, no edema Gastrointestinal (Abdomen): normal bowel sounds, soft, nontender, no hepatosplenomegaly Musculoskeletal: Head/Neck/Chest: normocephalic and head atraumatic Genitourinary: + perineal induration (abscess cavity; n o foul smell or signs of fascitis) Results & Data Vital Signs (Past 12 Hours) Vital Signs Temp Pulse Pulse Resp BP Pulse Ox Pulse Ox 03/14/23 11:43 79 14 118/72 92 03/14/23 11:43 83 03/14/23 09:29 83 03/14/23 05:59 03/14/23 05:38 83 03/14/23 05:31 37.2 C 82 14 132/72 94 03/14/23 05:31 94 O2 Del Method O2 Del Method 03/14/23 11:43 Room Air 03/14/23 11:43 03/14/23 09:29 03/14/23 05:59 Room Air 03/14/23 05:38 03/14/23 05:31 Room Air 03/14/23 05:31 Room Air
--- NOTE | 2023-03-14 17:15 | Allergy & Immunology Consult ---
Date of Consultation March 14, 2023 Assessment & Plan (1) Lip swelling: (2) Cellulitis of left buttock: (3) Left buttock abscess: Plan Patient presents with an episode of acute angioedema of unclear etiology. The differential diagnosis includes allergy to Zosyn, lisinopril induced angioedema, idiopathic angioedema, acquired angioedema, hereditary angioedema, mast cell disorder. I suspect lisinopril/ARLETH-induced angioedema is the most likely culprit. It is very common that this can occur even in patients who have been on lisinopril for 10 years or more. It almost always involves areas above the neck, and usually occurs with angioedema only without any urticaria. It often does not respond well to steroids or antihistamines and may take up to 48 hours to 72 hours to resolve its own. I am most concerned about a Zosyn allergy. If he had an IgE mediated allergy to Zosyn, I would expected that the very first dose would have led to a reaction and he likely would have had other symptoms then just lip swelling. I would have expected hives and potentially other symptoms like dyspnea/wheezing, gastrointestinal symptoms, drop in blood pressure given the high dose of IV Zosyn. It is also possible that this reaction was idiopathic in nature. Any significant infection could predispose someone to developing idiopathic angioedema. I would recommend checking a few lab tests to try to distinguish between these possibilities. A blood tryptase level to be very useful in ruling in or ruling out an IgE mediated allergy. If his tryptase were elevated, it would make an IgE mediated allergy more likely. The sensitivity is highest when drawn within 4 hours of the reaction, but for drug allergies we could be elevated even 24 hours after the reaction. I would also recommend checking a C4 level. A low C4 level would raise a question of hereditary or acquired angioedema (given his age acquired would be the more likely scenario) I do recommend that we see him as an outpatient so we can perform penicillin testing. Unfortunately, we would not be able to perform testing at hospital as he has been treated with antihistamines that would interfere with the test. I recommend that he avoid penicillin until we can see him as an outpatient. It would be safe to use another beta-lactam including cephalosporins or carbapenems. There is low cross-reactivity between the penicillin family and other beta-lactams. I also recommend that he avoid ARELTH inhibitors until we complete our work-up. It should be safe to use an ARB if he needs an alternative. History of Present Illness Attending Physician: Kaya Ba DO History of Present Illness This is a 68-year-old male who presents with a possible drug allergy. He was admitted with an abscess of the left buttock along with a cellulitis. He received a dose of Zosyn in the emergency room and then received a second dose around 8 PM last night. He thinks that he may have had oral penicillins in the past, but nothing recently. He has never had a previous penicillin reaction. Around the same time that he got the second dose of Zosyn he started to note an odd sensation around the right lip area and right cheek. He did not note significant swelling at that time. He went to sleep and when he woke up in the morning he had swelling of both the upper and lower lip on the right side and the right side of the face. He denied any oral swelling. He also denied any associated symptoms of hives, difficulty breathing, hypotension. He also is on lisinopril. He has been on this for about 10 years. He has previously tolerated this without any problems. He denies any history of previous allergic reaction and does not have any known medication allergies. For treatment of the swelling he received Benadryl and oral corticosteroids (40 mg of Solu-Medrol). He also received 20 mg of cetirizine and was started on prednisone 40 mg daily. Antibiotics were switched to Cipro and Flagyl. The Zosyn was discontinued. His lisinopril was also discontinued. Allergies Allergy/AdvReac Type Severity Reaction Status Date / Time piperacillin [From Zosyn] Allergy Severe angioedema Verified 03/14/23 08:44 tazobactam [From Zosyn] Allergy Severe angioedema Verified 03/14/23 08:44 lisinopril AdvReac Intermediate angioedema Verified 03/14/23 04:52 Home Medications Medication Instructions Recorded Confirmed Type krill 500 mg-omega-3 150 mg-dha 45 1 cap PO QAM ##0 07/14/15 03/13/23 History mg-epa 75 [id number] capsule (krill oil) atorvastatin 20 mg tablet 20 mg PO QAM 03/13/23 03/13/23 History cyanocobalamin (vitamin B-12) 1,000 mcg PO QAM 03/13/23 03/13/23 History 1,000 mcg tablet (Vitamin B-12) doxycycline hyclate 100 mg capsule 100 mg PO BID 03/13/23 03/13/23 History lisinopril 20 mg tablet 20 mg PO HS 03/13/23 03/13/23 History lisinopril 20 1 tab PO QAM 03/13/23 03/13/23 History mg-hydrochlorothiazide 25 mg tablet metformin 500 mg tablet,extended 1,500 mg PO QAM 03/13/23 03/13/23 History release 24 hr paroxetine HCl 40 mg tablet 40 mg PO QAM 03/13/23 03/13/23 History Patient History Medical History (Updated 03/14/23 @ 17:06 by Crispin Parry MD) Lip swelling GERD without esophagitis Prediabetes Dyslipidemia Essential hypertension Mild obstructive sleep apnea Right retinal detachment Surgical History History of inguinal hernia repair History of vitrectomy History of appendectomy Family History Other Cancer Heart disease Hypertension Social History Smoking Status: Never smoker Hx Alcohol Use: Yes Alcohol type: beer Hx Substance Use: No Preferred Language: Khmer Communication Ability: Effective Household Appliances Salesperson Required: No Beliefs That Will Affect Care: None Current Living Situation: Spouse Other Information That Helps Us Care for You: No Feels Safe at Home: Yes Safety Concerns: Feels Safe At This Time Assistive Devices: None Review of Systems Review of Systems: All systems reviewed & are unremarkable except as noted in HPI & below Physical Exam Eyes: no conjunctival abnormality, no scleral abnormality and sclerae not a nicteric ENMT: Nose: no turbinate abnormality, no nasal mucous membrane abnormality, no septum abnormality and no nasal discharge Mouth: no lip abnormality and no oropharynx abnormality Throat: no postnasal drainage Neck: trachea midline, no thyromegaly Respiratory: normal respiratory effort; no respiratory distress Auscultation: no crackles, no rhonchi and no wheezes Cardiovascular: RRR, no murmur, no edema Gastrointestinal (Abdomen): Inspection/Auscultation: abdomen normal to inspection and normal bowel sounds; abdomen not distended Musculoskeletal: Head/Neck/Chest: + head abnormal to inspection and normocephalic Skin: no rashes Neurologic: awake Speech / Cognition: normal cognition Motor/Sensory: normal movement Psychiatric: A+Ox3, euthymic affect Results & Data Vital Signs (Past 12 Hours) Vital Signs Temp Pulse Pulse Resp BP Pulse Ox Pulse Ox 03/14/23 16:16 78 14 118/68 93 03/14/23 16:02 83 03/14/23 11:43 79 14 118/72 92 03/14/23 11:43 83 03/14/23 09:29 83 03/14/23 05:59 03/14/23 05:38 83 03/14/23 05:31 37.2 C 82 14 132/72 94 03/14/23 05:31 94 O2 Del Method O2 Del Method 03/14/23 16:16 Room Air 03/14/23 16:02 03/14/23 11:43 Room Air 03/14/23 11:43 03/14/23 09:29 03/14/23 05:59 Room Air 03/14/23 05:38 03/14/23 05:31 Room Air 03/14/23 05:31 Room Air Coding Level of Care Code 95557 OFFICE CONSULT LVL M Diagnoses Lip swelling R22.0 Cellulitis of left buttock L03.317 Left buttock abscess L02.31
[2023-03-14] MEDS: amLODIPine BESYLATE 5 MG TAB PO SCH (20:50)
[2023-03-15] MEDS: metroNIDAZOLE 500 MG/100 ML BAG IV SCH ×3 (00:39→17:15)
[2023-03-15 04:21] LABS: Hematocrit (blood only) 32.8 % (42.0-52.0); Hemoglobin 11.1 g/dl (14.0-18.0); Mean Corpuscular Hemoglobin 26.7 pg (25.0-34.0); Mean Corpuscular Hgb Conc 33.8 g/dL (32.0-36.0); Platelet Count 331 K/uL (130-400); RDW Coefficient of Variation 13.4 % (11.5-14.5); RDW Standard Deviation 38.5 fL (36.4-46.3); Red Blood Count 4.15 M/uL (4.70-6.10); White Blood Count 11.97 K/ul (4.8-10.8)
[2023-03-15 04:50] LABS: Calcium 8.6 mg/dl (8.6-10.3); Potassium 3.8 mmol/L (3.5-5.1)
[2023-03-15 04:55] LABS: BUN Creatinine Ratio 27.6 (10-20); Creatinine Clr Calc Pharmacy 69.9 ml/min; Est GFR (African American) 75.1 ml/min; Est GFR (Non-African American) 64.8 ml/min
[2023-03-15] MEDS ORDERED: Nursing to Pharmacy Communication SCH ×2 (07:15→10:15)
[2023-03-15] MEDS: CIPROFLOXACIN / D5W 400 MG/200 ML BAG IV SCH ×2 (07:30→21:02)
[2023-03-15] MEDS ORDERED: INSULIN ASPART PER UNIT CHARGE SC SCH (07:30)
--- NOTE | 2023-03-15 07:30 | Hospitalist Progress Note ---
Date of Service March 15, 2023 Assessment & Plan (1) Left buttock abscess: (2) Angioedema: (3) Cellulitis of left buttock: (4) Prediabetes: (5) Essential hypertension: (6) Mild obstructive sleep apnea: Plan This is a 68 y/o male with a history of HTN, prediabetes, MORIS on CPAP, dyslipidemia, GERD, and right retinal detachment who presented to the ED on 03/13 with worsening lump in his left buttock. Imaging in the ED revealed left buttock abscess with overlying left buttock cellulitis. Afebrile, normal WBC count. Pt has failed course of outpatient antibiotics with progression of lesion. Patient's course complicated by isolated right lower lip angioedema, prompting allergy consultation with concern of abx v ACEi reaction Patient is now s/p ID as of 03/15. #Left Buttock Abscess w/ cellulitis -Continue cipro/flagyl for infection -allergy consult-->feels this is 2/2 ACEI-->plans to see patient as outpatient and order C4 and tryptase levels off antihistamines. -cont to avoid PCN and ACEI at this point -Wound management per surgery, follow up intraoperative cultures #Angioedema: likely 2/2 ACEI use, but possibly also related to Zosyn. Avoid both agents. A followup with printed circuit boards beveler in outpatient clinic (Dr. Crispin Parry) for further workup of cause. Cont cetirizine and prednisone taper. I went back and evaluated him this afternoon and swelling was almost gone with patient feeling much better. #Prediabetes: BSG ACHS Insulin sliding scale - holding Metformin Diabetic diet once able to eat A1c 03/14 6.1% #Essential hypertension #RBBB chronic, stable and at goal. Cont with HCTZ. Will need to replace ACEI at discharge with close primary care followup. -Continue amlodipine and HCTZ (increased to 25mg) #Mild obstructive sleep apnea: chronic, stable. He uses CPAP at home but declines need to use it while here. full Code SCDs given upcoming procedure Dispo-to home after I&D with recovery I spent a total [id number] coordinating, documenting, and providing care for this patient excluding time spent in the performance of separately billed services Admission and Anticipated Discharge Date Admission Date: March 13, 2023 Subjective s/p ID this morning, reports mild pain but denies any other acute concerns Reports complete resolution of right angioedema of lip Review of Systems Review of Systems: All systems reviewed & are unremarkable except as noted in Subjective Physical Exam Constitutional: WD/WN, vitals as above Respiratory: normal respiratory effort, lungs clear to auscultation Cardiovascular: RRR, no murmur, no edema Results & Data Results & Data Vital Signs (Past 12 Hours) Vital Signs Temp Pulse Pulse Resp BP Pulse Ox O2 Del Method 03/15/23 03:45 36.6 C 61 20 112/66 94 Room Air 03/14/23 23:54 67 03/14/23 23:00 36.9 C 74 14 104/63 94 Room Air 03/14/23 19:45 36.5 C 70 18 127/71 96 Room Air Laboratory Results Short CBC 03/15/23 Range/Units 03:34 WBC 11.97 H (4.8-10.8) K/ul Hgb 11.1 L (14.0-18.0) g/dl Hct 32.8 L (42.0-52.0) % Plt Count 331 (130-400) K/uL BMP 03/15/23 03:34 Sodium 137 Potassium 3.8 Chloride 105 Carbon Dioxide 25 BUN 32 H Creatinine 1.16 Glucose 143 H Calcium 8.6 Medications Administered Home Medications Medication Instructions Recorded Confirmed Last Taken krill 500 mg-omega-3 150 mg-dha 45 1 cap PO QAM ##0 07/14/15 03/13/23 03/13/23 mg-epa 75 [id number] capsule (krill oil) atorvastatin 20 mg tablet 20 mg PO QAM 03/13/23 03/13/23 03/13/23 cyanocobalamin (vitamin B-12) 1,000 mcg PO QAM 03/13/23 03/13/23 03/13/23 1,000 mcg tablet (Vitamin B-12) doxycycline hyclate 100 mg capsule 100 mg PO BID 03/13/23 03/13/23 03/13/23 lisinopril 20 mg tablet 20 mg PO HS 03/13/23 03/13/23 03/12/23 lisinopril 20 1 tab PO QAM 03/13/23 03/13/23 03/13/23 mg-hydrochlorothiazide 25 mg tablet metformin 500 mg tablet,extended 1,500 mg PO QAM 03/13/23 03/13/23 03/13/23 release 24 hr paroxetine HCl 40 mg tablet 40 mg PO QAM 03/13/23 03/13/23 03/13/23 Active Medications Generic Name Dose Route Start Last Admin Trade Name Freq PRN Reason Stop Dose Admin Acetaminophen 650 mg 03/13/23 18:56 03/14/23 00:38 Acetaminophen 325 Mg Tab PO 04/12/23 18:55 650 mg Q4H PRN Administration pain/fever Amlodipine Besylate 2.5 mg 03/14/23 21:00 03/14/23 20:50 Amlodipine Besylate 5 Mg Tab PO 04/13/23 20:59 2.5 mg HS EMMETT Administration Atorvastatin Calcium 20 mg 03/14/23 09:00 03/14/23 10:03 Atorvastatin 20 Mg Tab PO 04/13/23 08:59 20 mg QAM EMMETT Administration Cetirizine HCl 20 mg 03/14/23 09:00 03/14/23 10:04 Cetirizine Hcl 10 Mg Tablet PO 04/13/23 08:59 20 mg QAM EMMETT Administration Ciprofloxacin 400 mg in 200 mls @ 100 mls/hr 03/14/23 09:00 03/14/23 23:02 Cipro / D5w IV 03/21/23 08:59 Infused Q12H EMMETT Infusion Protocol Metronidazole 500 mg in 100 mls @ 100 mls/hr 03/14/23 09:00 03/15/23 01:45 Flagyl IV 03/21/23 08:59 Infused Q8H EMMETT Infusion Protocol Paroxetine HCl 40 mg 03/14/23 09:00 03/14/23 10:03 Paroxetine Hcl 20 Mg Tab PO 04/13/23 08:59 40 mg QAM EMMETT Administration Prednisone 40 mg 03/14/23 09:00 03/14/23 10:04 Prednisone 20 Mg Tab PO 04/13/23 08:59 40 mg DAILY EMMETT Administration (2) Angioedema Encounter type: initial encounter Qualified Code(s): T78.3XXA - Angioneurotic edema, initial encounter
[2023-03-15] MEDS ORDERED: HYDROCORTISONE SOD SUCCINATE 100 MG/2 ML VIAL ONE (07:32)
[2023-03-15] MEDS ORDERED: fentaNYL citrate PF 100 MCG/2 ML VIAL ONE (07:32)
[2023-03-15] MEDS ORDERED: PROPOFOL IV EMULSION 10 MG/ML 20 ML VIAL IV ONE (07:32)
[2023-03-15] MEDS ORDERED: MIDAZOLAM HCL 1 MG/ML 2ML VIAL ONE (07:32)
[2023-03-15] MEDS ORDERED: LIDOCAINE 2% 2 ML VIAL/AMP(20MG/ML) INFIL ONE (07:32)
[2023-03-15] MEDS ORDERED: BUPIVACAINE/EPINEPHRINE 0.5% MPF 1:200,000 30 ML VIAL ONE (07:39)
--- NOTE | 2023-03-15 07:46 | History & Physical Bridge Note ---
Date of Service March 15, 2023 History & Physical Bridge Note I have examined the patient, reviewed the History & Physical and in the interval since the performance of the History & Physical I have noted the following changes of clinical significance: no changes noted
[2023-03-15] MEDS ORDERED: DexMEDEtomidine HCL IV 100 MCG/ML VIAL IV ONE (07:57)
[2023-03-15] MEDS ORDERED: PROMETHAZINE HCL 12.5 MG in SODIUM CHLORIDE 0.9% 50 ML IV PRN (07:59)
[2023-03-15] MEDS ORDERED: ATROPINE SULFATE 0.1 MG/ML 10ML SYR IV PRN (07:59)
[2023-03-15] MEDS ORDERED: HYDROmorphone INJ 1 MG/ML SYRINGE IV PRN (07:59)
[2023-03-15] MEDS ORDERED: FLUMAZENIL 0.1 MG/1 ML 10 ML VIAL IV PRN (07:59)
[2023-03-15] MEDS ORDERED: NALOXONE HCL 0.4 MG/1 ML VIAL/CARP IV PRN (07:59)
[2023-03-15] MEDS ORDERED: fentaNYL citrate PF 100 MCG/2 ML VIAL IV PRN (07:59)
[2023-03-15] MEDS: LACTATED RINGER'S 1,000 ML IV SCH (07:59)
[2023-03-15] MEDS ORDERED: ONDANSETRON INJ 2 MG/ML 2 ML VIAL IV PRN (07:59)
[2023-03-15] MEDS ORDERED: ePHEDrine sulfate 50 MG/ML AMP IV PRN (07:59)
[2023-03-15] MEDS ORDERED: LABETALOL HCL IV 5 MG/ML 20ML IV PRN (07:59)
--- NOTE | 2023-03-15 07:59 | Anesthesiology Consultation ---
Date of Service March 15, 2023 Assessment & Plan Chart Review Chart Review: Acceptable Risk for Surgery and Patient NOT seen in Pre Admission Testing Consults Requested none ASA [id number] Proposed Anesthesia Anesthesia Type: General Risk / Benefits Reviewed With: PT / POA / Parent / Guardian, Accepts Plan and Informed Consent Obtained History Surgery Operation Date: 03/15/23 10:20 Proposed Procedures p Incision and Drainage Davida-Rectal Abscess - Edwin Russell MD Height/Weight Height: 5 ft 10 in Weight: 91.2 kg Allergies Allergy/AdvReac Type Severity Reaction Status Date / Time piperacillin [From Zosyn] Allergy Severe angioedema Verified 03/14/23 08:44 tazobactam [From Zosyn] Allergy Severe angioedema Verified 03/14/23 08:44 lisinopril AdvReac Intermediate angioedema Verified 03/14/23 04:52 Medications Home Medications Medication Instructions Recorded Confirmed Last Taken krill 500 mg-omega-3 150 mg-dha 45 1 cap PO QAM ##0 07/14/15 03/13/23 03/13/23 mg-epa 75 [id number] capsule (krill oil) atorvastatin 20 mg tablet 20 mg PO QAM 03/13/23 03/13/23 03/13/23 cyanocobalamin (vitamin B-12) 1,000 mcg PO QAM 03/13/23 03/13/23 03/13/23 1,000 mcg tablet (Vitamin B-12) doxycycline hyclate 100 mg capsule 100 mg PO BID 03/13/23 03/13/23 03/13/23 lisinopril 20 mg tablet 20 mg PO HS 03/13/23 03/13/23 03/12/23 lisinopril 20 1 tab PO QAM 03/13/23 03/13/23 03/13/23 mg-hydrochlorothiazide 25 mg tablet metformin 500 mg tablet,extended 1,500 mg PO QAM 03/13/23 03/13/23 03/13/23 release 24 hr paroxetine HCl 40 mg tablet 40 mg PO QAM 03/13/23 03/13/23 03/13/23 Active Medications Generic Name Dose Route Start Last Admin Trade Name Freq PRN Reason Stop Dose Admin Acetaminophen 650 mg 03/13/23 18:56 03/14/23 00:38 Acetaminophen 325 Mg Tab PO 04/12/23 18:55 650 mg Q4H PRN Administration pain/fever Amlodipine Besylate 2.5 mg 03/14/23 21:00 03/14/23 20:50 Amlodipine Besylate 5 Mg Tab PO 04/13/23 20:59 2.5 mg HS EMMETT Administration Atorvastatin Calcium 20 mg 03/14/23 09:00 03/14/23 10:03 Atorvastatin 20 Mg Tab PO 04/13/23 08:59 20 mg QAM EMMETT Administration Cetirizine HCl 20 mg 03/14/23 09:00 03/14/23 10:04 Cetirizine Hcl 10 Mg Tablet PO 04/13/23 08:59 20 mg QAM EMMETT Administration Ciprofloxacin 400 mg in 200 mls @ 100 mls/hr 03/14/23 09:00 03/14/23 23:02 Cipro / D5w IV 03/21/23 08:59 Infused Q12H EMMETT Infusion Protocol Metronidazole 500 mg in 100 mls @ 100 mls/hr 03/14/23 09:00 03/15/23 01:45 Flagyl IV 03/21/23 08:59 Infused Q8H EMMETT Infusion Protocol Lactated Ringer's 1,000 mls @ 15 mls/hr 03/15/23 07:45 03/15/23 07:59 Lr IV 04/14/23 07:44 15 mls/hr .Q24H EMMETT Administration Paroxetine HCl 40 mg 03/14/23 09:00 03/14/23 10:03 Paroxetine Hcl 20 Mg Tab PO 04/13/23 08:59 40 mg QAM EMMETT Administration Prednisone 40 mg 03/14/23 09:00 03/14/23 10:04 Prednisone 20 Mg Tab PO 04/13/23 08:59 40 mg DAILY EMMETT Administration NPO Date Last Intake of Fluids: 03/14/23 Time Last Intake of Fluids: 20:00 Date Last Intake of Solids: 03/14/23 Time Last Intake of Solids: 20:00 Past Medical History Medical History Lip swelling GERD without esophagitis Prediabetes Dyslipidemia Essential hypertension Mild obstructive sleep apnea Right retinal detachment Exercise / Class Metabolic Activity III < 4 Walking/Shop/Light housework Past Family History Family History Other Cancer Heart disease Hypertension Past Surgical History Surgical History History of inguinal hernia repair History of vitrectomy History of appendectomy Past Anesthesia History No Hx of Anesthesia Complications and No Family Hx of Anesthesia Complications History of PONV No Hx of PONV and No Hx of Motion Sickness Social History Smoking Status: Never smoker Hx Alcohol Use: Yes Alcohol type: beer alcohol intake frequency: a few times a week Hx Substance Use: No substance use type: does not use Physical Exam Vital Signs Last Vital Signs Temp 36.6 C 03/15/23 07:43 Pulse 83 03/15/23 07:43 Resp 18 03/15/23 07:43 BP 127/69 03/15/23 07:43 Pulse Ox 96 03/15/23 07:43 O2 Del Method Room Air 03/15/23 07:43 Constitutional + obese; no acute distress ENMT Mouth: no dentition abnormality Thyromental Distance: > or= 3.5 Finger Breadths Mallampati Class: II Neck normal visual inspection, trachea midline and + facial hair; neck extension not limited Respiratory normal respiratory effort Auscultation: lungs clear to auscultation bilaterally Cardiovascular Rate/Rhythm: regular rate and regular rhythm Heart Sounds: no murmur Vessels: no carotid bruit Musculoskeletal Spine: normal cervical ROM and no pain with cervical ROM Extremities: extremities normal to inspection; full ROM of extremities Neurologic moves all extremities Motor/Sensory: no sensory deficit Psychiatric Orientation: alert and oriented x 3 Testing Laboratory Results 03/15/23 03:34 03/15/23 03:34 Hemoglobin A1c 6.1 % (4.5-5.6) H 03/14/23 05:40 03/13/23 15:38 Aerobic Blood Culture - Preliminary Blood No growth in Aerobic bottle after 24 hours. Anaerobic Blood Culture - Final 03/13/23 15:37 Aerobic Blood Culture - Preliminary Blood No growth in Aerobic bottle after 24 hours. Anaerobic Blood Culture - Preliminary No growth in Anaerobic bottle after 24 hours. 03/15/23 03/14/23 07:31 20:25 POC Glucose 135 H 157 H Electrocardiogram Date: 03/15/23 Findings: + NSR @ (@ 77) and + RBBB
--- NOTE | 2023-03-15 08:44 | Post Operative Brief Note ---
Immediate Post Op Note v1 Date of Surgery March 15, 2023 Pre & Post Diagnosis Operation Date: 03/15/23 10:20 Pre-Op Diagnosis: Left buttock abscess and cellulitis Post-Op Diagnosis: Left buttock abscess and cellulitis I identified the patient and participated in the time-out.: Yes Procedure Operation Date: 03/15/23 10:20 Actual Procedures p Incision and Drainage Davida-Rectal Abscess - Edwin Russell MD Surgeon Edwin Russell MD Sales Performance Analyst none Estimated Blood Loss 15 Findings Consistent with Post-Op Diagnosis
--- NOTE | 2023-03-15 08:48 | Operative Report ---
Post Operative Report Pre & Post Diagnosis Operation Date: 03/15/23 10:20 Pre-Op Diagnosis: Left buttock abscess and cellulitis Post-Op Diagnosis: Left buttock abscess and cellulitis I identified the patient and participated in the time-out.: Yes Procedure Operation Date: 03/15/23 10:20 Actual Procedures p Incision and Drainage Davida-Rectal Abscess - Edwin Russell MD Surgeon Edwin Russell MD Manager Strategic Sourcing none Estimated Blood Loss 15 Findings Consistent with Post-Op Diagnosis Large perirectal abscess at the 4 o'clock position Specimens Intraoperative cultures taken Drains None Anesthesia Type General Complications None Indications This is a 68-year-old male who was admitted through the ED with a large peritoneal abscess. A CT scan was done which showed an abscess without signs of fasciitis. He was begun on IV fluids and IV antibiotics. Surgery was delayed because of a reaction to a medication but he is taken today for an I&D of this large perirectal abscess. He understands the risk of bleeding, recurrent reoperation. He also understands the risk of fistula long-term. Description of Procedure Patient was taken the OR and underwent excellent general anesthesia. He was placed in the lithotomy position and his peritoneal area was prepped and draped normal sterile fashion. Marcaine was used to create a field block. A 15 blade knife was used to create an opening into the abscess cavity. A large amount of purulent material was expressed. Intraoperative cultures were taken. The wound was then probed and all loculations were opened. Once the wound was completely drained it was irrigated out with saline. The wound was then packed with iodoform gauze. Sterile dressing was applied. He tolerated procedure well be taken to the postop recovery period of observation. He then will be sent back to his room for his care. I attest to the content of the Intraoperative Record and any orders documented therein. Any exceptions are noted below.
[2023-03-15] MEDS ORDERED: hydroCHLOROthiazide 25 MG TAB PO SCH (09:00)
[2023-03-15] MEDS ORDERED: oxyCODONE/ACETAMINOPHEN 5mg/325mg TAB PO PRN ×2 (09:17)
--- NOTE | 2023-03-15 09:31 | Anesthesiology Progress Note ---
Date of Service March 15, 2023 Anesthesia Post Procedure Vital Signs Vital Signs: Temp Pulse Pulse Pulse Resp BP Pulse Ox 03/15/23 09:20 37.4 C 83 14 113/55 L 93 03/15/23 09:10 83 11 L 97/68 L 94 03/15/23 09:00 87 15 134/75 90 03/15/23 08:50 36.0 C L 93 H 18 133/89 93 03/15/23 07:43 36.6 C 83 18 127/69 96 03/15/23 07:30 67 03/15/23 03:45 36.6 C 61 20 112/66 94 03/14/23 23:54 67 03/14/23 23:00 36.9 C 74 14 104/63 94 03/14/23 19:45 36.5 C 70 18 127/71 96 03/14/23 16:16 78 14 118/68 93 03/14/23 16:02 83 03/14/23 11:43 79 14 118/72 92 03/14/23 11:43 83 O2 Del Method O2 Flow Rate 03/15/23 09:20 Nasal Cannula 4 03/15/23 09:10 Nasal Cannula 4 03/15/23 09:00 Oxymask 6 03/15/23 08:50 Oxymask 10 03/15/23 07:43 Room Air 03/15/23 07:30 03/15/23 03:45 Room Air 03/14/23 23:54 03/14/23 23:00 Room Air 03/14/23 19:45 Room Air 03/14/23 16:16 Room Air 03/14/23 16:02 03/14/23 11:43 Room Air 03/14/23 11:43 Transfer of Care Handoff Completed per policy Notes Mental Status: alert / awake / arousable Patient Amnestic to Procedure: Yes Nausea / Vomiting: adequately controlled Pain: adequately controlled Airway Patency, RR, SpO2: stable & adequate BP & HR: stable & adequate Hydration State: stable & adequate Anesthetic Complications: no major complications apparent
[2023-03-15] MEDS: CETIRIZINE HCL 10 MG TABLET PO SCH (09:48)
[2023-03-15] MEDS: PARoxetine HCL 20 MG TAB PO SCH (09:48)
[2023-03-15] MEDS: ATORVASTATIN 20 MG TAB PO SCH (09:48)
[2023-03-15] MEDS: predniSONE 20 MG TAB PO SCH (09:49)
[2023-03-15] MEDS: INSULIN ASPART PER UNIT CHARGE SC SCH ×3 (11:59→20:56)
--- NOTE | 2023-03-15 16:12 | Electrocardiogram Report ---
Test Reason : Blood Pressure : / mmHG Vent. Rate : 077 BPM Atrial Rate : 077 BPM P-R Int : 166 ms QRS Dur : 140 ms QT Int : 422 ms P-R-T Axes : 047 023 -08 degrees QTc Int : 477 ms Normal sinus rhythm Right bundle branch block Abnormal ECG When compared with ECG of 02-APR-1999 18:47, Vent. rate has increased BY 29 BPM Right bundle branch block is now Present Confirmed by Rodrigo Scott ([id number]) on 03/15/2023 4:11:45 PM Referred By: REFERRED SELF Confirmed By:Rodrigo Scott
[2023-03-15] MEDS: amLODIPine BESYLATE 5 MG TAB PO SCH (21:12)
[2023-03-16] MEDS: metroNIDAZOLE 500 MG/100 ML BAG IV SCH ×2 (00:57→08:56)
[2023-03-16] MEDS: ACETAMINOPHEN 325 MG TAB PO PRN (03:55)
[2023-03-16 07:00] LABS: Hematocrit (blood only) 33.4 % (42.0-52.0); Hemoglobin 11.1 g/dl (14.0-18.0); Mean Corpuscular Hgb Conc 33.2 g/dL (32.0-36.0); Mean Corpuscular Volume 81.3 fL (80.0-100.0); Mean Platelet Volume 9.7 fL (9.4-12.4); Platelet Count 342 K/uL (130-400); RDW Coefficient of Variation 13.1 % (11.5-14.5); RDW Standard Deviation 38.4 fL (36.4-46.3); Red Blood Count 4.11 M/uL (4.70-6.10); White Blood Count 10.63 K/ul (4.8-10.8)
[2023-03-16 07:28] LABS: BUN Creatinine Ratio 26.6 (10-20); Calcium 8.6 mg/dl (8.6-10.3); Creatinine Clr Calc Pharmacy 74.7 ml/min; Est GFR (Non-African American) 69.9 ml/min; Potassium 3.6 mmol/L (3.5-5.1)
[2023-03-16] MEDS: CIPROFLOXACIN / D5W 400 MG/200 ML BAG IV SCH (08:56)
[2023-03-16] MEDS: LACTATED RINGER'S 1,000 ML IV SCH (08:57)
[2023-03-16] MEDS ORDERED: hydroCHLOROthiazide 25 MG TAB PO SCH (09:00)
[2023-03-16] MEDS: PARoxetine HCL 20 MG TAB PO SCH (09:14)
[2023-03-16] MEDS: INSULIN ASPART PER UNIT CHARGE SC SCH ×2 (09:17→14:14)
[2023-03-16] MEDS: predniSONE 20 MG TAB PO SCH (09:44)
[2023-03-16] MEDS: CETIRIZINE HCL 10 MG TABLET PO SCH (09:44)
[2023-03-16] MEDS: ATORVASTATIN 20 MG TAB PO SCH (09:44)
--- NOTE | 2023-03-16 13:43 | Surgery Progress Note ---
Date of Service March 16, 2023 Assessment & Plan (1) Left buttock abscess: Plan: drained begin dressing switch to oral abx soon and discharge per medical team appt my clinic 1 week post discharge Present on Admission?: Yes Admission and Anticipated Discharge Date Admission Date: March 13, 2023 Subjective no complaints Review of Systems Constitutional: no fever and no chills Gastrointestinal: + problem reported (some pain with incis ion) Physical Exam Constitutional: WD/WN, vitals as above Gastrointestinal (Abdomen): incision clean; packing removed; begin dressings Skin: no rashes, warm and dry Results & Data Vital Signs (Past 12 Hours) Vital Signs Temp Pulse Pulse Resp BP Pulse Ox O2 Del Method 03/16/23 11:46 36.9 C 72 14 116/74 95 Room Air 03/16/23 08:02 36.9 C 77 18 133/75 95 Room Air 03/16/23 07:17 73 03/16/23 05:00 O2 Del Method 03/16/23 11:46 03/16/23 08:02 03/16/23 07:17 03/16/23 05:00 Room Air
--- NOTE | 2023-03-16 17:22 | Discharge Summary ---
Discharge Summary Date of Service March 16, 2023 Notes For Next Care Provider Medication Changes From Visit -Discontinue lisinopril -Start Amlodipine 2.5mh qhs and HCTZ 25mg daily Admission HPI Per Admitting Provider This is a 68 y/o male with a history of HTN, prediabetes, MORIS on CPAP, dyslipidemia, GERD, and right retinal detachment who presented to the ED today with worsening lump in his left buttock. Pt reports that he noted an indurated area in his left buttock just over a week ago but it was only a few cm in diameter. He saw someone is his PCP office on 03/07 and was placed on doxycycline, referred for outpatient surgical evaluation. For the first few days on the antibiotic, he didn't notice a significant change but over the last 2-3 days he has noted enlargement of the indurated area, increasing pain, and the development of overlying redness that was not there initially. He denies documented fevers but has had chills, malaise, and fatigue over the last few days. He has never had anything like this previously. He denies rectal pain or difficulties with moving bowels. No drainage from the area. He has been using warm compresses to try to help it drain. He denies chest pain, dyspnea, palpitations, syncope, N/V/D. He does not check his blood sugars at home. Admission Exam Per Admitting Provider General: awake, alert, NAD Eyes: no scleral icterus Mouth: moist mucus membranes Neck: trachea midline Heart: RRR, no M/G/R Lungs: CTA bilaterally, no W/R/R Abd: soft, NT, +BS Extremities: no pedal edema, distal pulses intact and equal Skin: see physician note for examination of buttocks Principal Dx & Hospital Course #1 = Principal Diagnosis (1) Left buttock abscess: (2) Angioedema: (3) Cellulitis of left buttock: (4) Prediabetes: (5) Essential hypertension: (6) Mild obstructive sleep apnea: Plan This is a 68 y/o male with a history of HTN, prediabetes, MORIS on CPAP, dyslipidemia, GERD, and right retinal detachment who presented to the ED on 03/13 with worsening lump in his left buttock. Imaging in the ED revealed left buttock abscess with overlying left buttock cellulitis. Afebrile, normal WBC count. Pt has failed course of outpatient antibiotics with progression of lesion. Patient's course complicated by isolated right lower lip angioedema, prompting allergy consultation with concern of abx v ACEi reaction Patient is now s/p ID as of 03/15. Patient evaluated post-operatively by surgery with no need for continued packing of wound. was shown how to dress area. #Left Buttock Abscess w/ cellulitis -Continue cipro/flagyl for infection, po; will complete total 7 day post- operatively for complicated cellulitis -allergy consult-->feels this is 2/2 ACEI-->plans to see patient as outpatient and order C4 and tryptase levels off antihistamines. -cont to avoid PCN and ACEI at this point -Wound management per surgery, follow up in 1 week with surgery #Angioedema: likely 2/2 ACEI use, but possibly also related to Zosyn. Avoid both agents. A followup with brokerage branch manager in outpatient clinic (Dr. Crispin Parry) for further workup of cause. #Prediabetes: BSG ACHS Resume metformin A1c 03/14 6.1% #Essential hypertension #RBBB chronic, stable and at goal. Cont with HCTZ. Will need to replace ACEI at discharge with close primary care followup. -Continue amlodipine and HCTZ (increased to 25mg) #Mild obstructive sleep apnea: chronic, stable. He uses CPAP at home but declines need to use it while here. On day of discharge, patient reports adequate pain control, resolution of swel ling of lip, and no acute concerns. Discharge Exam Constitutional WD/WN, vitals as above ENMT mouth without any residual swelling/inflammtion noted Respiratory normal respiratory effort, lungs clear to auscultation Cardiovascular RRR, no murmur, no edema Neurologic PERRL, EOMI, accommodation nl, no face palsy, no dysarthria Updated Medication List Medication Instructions Recorded Confirmed Type krill 500 mg-omega-3 150 mg-dha 45 1 cap PO QAM ##0 07/14/15 03/13/23 History mg-epa 75 [id number] capsule (krill oil) atorvastatin 20 mg tablet 20 mg PO QAM 03/13/23 03/13/23 History cyanocobalamin (vitamin B-12) 1,000 mcg PO QAM 03/13/23 03/13/23 History 1,000 mcg tablet (Vitamin B-12) metformin 500 mg tablet,extended 1,500 mg PO QAM 03/13/23 03/13/23 History release 24 hr paroxetine HCl 40 mg tablet 40 mg PO QAM 03/13/23 03/13/23 History amlodipine 5 mg tablet (Norvasc) 2.5 mg (1/2 x 5 mg) PO HS 30 days 03/16/23 Rx #15 tabs ciprofloxacin HCl 500 mg tablet 500 mg PO Q12H #14 tabs 03/16/23 Rx hydrochlorothiazide 25 mg tablet 25 mg PO QAM #30 tabs 03/16/23 Rx metronidazole 500 mg tablet 500 mg PO BID 7 days #14 tabs 03/16/23 Rx Hospital Stay Data Consultations 03/13/23 15:21 Consult General Surgery Routine 03/13/23 15:29 ED Decision to Admit Stat 03/14/23 08:32 Consult Allergy / Immunology Routine Procedures Performed Operation Date: 03/15/23 10:20 Actual Procedures p Incision and Drainage Davida-Rectal Abscess - Edwin Russell MD Diagnostic Imagining Performed 03/13/23 12:23 CT abd pelvis IV con only Stat 03/14/23 04:53 CT face [CT facial bones w con] Stat Pending Results Patient Have Any Pending Studies at Discharge: No Discharge Instructions Given to Patient (Per Discharging Provider) You were admitted due to concern of progressive abscess on buttock which was drained on 03/15/2023. Your course was complicated by lip swelling. There is concern of whether your blood pressure medication, Lisinopril (a type called "ARLETH inhibitor") caused this swelling or was it related to antibiotics. The Electrical Line Splicer who evaluated you felt this was likely related to the Lisinopril, as this swelling is often a known side effect, even after years on this medication. At this time both lisinopril and "zosyn" are added to your allergy list until you follow up for further evaluation as an outpatient with Allergy Clinic. #Left Buttock Abscess w/ cellulitis -Continue ciprofloxacin 500mg twice daily until completed (7 days worth) -Continue Flagyl (metronidazole) twice daily until completed (7 days worth) -Wound care as directed by surgery. Follow up in [address] Russell to be coordinated #Angioedema (lip swelling) A followup with brokerage branch manager in outpatient clinic (Dr. Crispin Parry) for further workup of cause will be arranged #Prediabetes: Resume Metformin A1c 03/14 6.1% #Essential hypertension #RBBB chronic, stable and at goal. Cont with HCTZ. Will need to replace ACEI at discharge with close primary care followup. -Continue amlodipine 2.5 mg at bedtime -Continue HCTZ 25 mg daily #Mild obstructive sleep apnea: Use CPAP Total Time Total Time Spent Total Time Spent (In Minutes): 45
--- OUTSIDE RECORDS SUMMARY | 2023-03-17 23:07 | External Medical Summary | Summary of Care ---
Author Name Unknown Organization [facility] Address [address] [place] [facility] [place] [address] Phone [phone] Care Team Providers Care Licensed Loan Officer Assistant Name Role Phone Maikol SHEPHERD MD, Te Pérez Primary Care Provider [phone] Reason for Visit * Reason Onset Date Comments Referral 03/07/2023 Encounter Details Date Type Department Care Team (Late st Contact Info) Description 03/07/2023 Telephone Family Practice [facility] [address] [place] [address] Yessenia Lopez MD [address] [place] [address] Referral Allergies No known active allergiesdocumented as of this encounter (statuses as of 03/09/2023) Medications Medication Sig Dispensed Refills Start Date End Date Status CPAP every night at bedtime . 0 Active Lisinopril 20 MG Oral Tablet (Prinivil)Indicatio ns:HTN, goal below 140/90 Take 1 Tablet by mouth in the morning. 90 Tablet 3 09/21/2022 Active metFORMIN HCl ER 500 MG Oral Tablet Extended Release 24 Hour (Glucophage XR)Indications:Pred iabetes TAKE 3 TABLETS BY MOUTH EVERY DAY 270 Tablet 2 09/21/2022 Active Lisinopril-hydroCHL OROthiazide 20-25 MG Oral TabletIndications:H TN, goal below 140/90 Take 1 Tablet by mouth in the morning. 90 Tablet 1 11/30/2022 Active Atorvastatin Calcium 20 MG Oral Tablet (Lipitor)Indication s:Dyslipidemia, goal LDL below 130 TAKE 1 TABLET BY MOUTH EVERY DAY IN THE MORNING 90 Tablet 1 11/30/2022 Active PARoxetine HCl 40 MG Oral Tablet (pAXil) TAKE 1 TABLET BY MOUTH EVERY DAY IN THE MORNING 90 Tablet 3 12/01/2022 Active Doxycycline Hyclate 100 MG Oral CapsuleIndications: Mass of buttock Take 1 Capsule by mouth in the morning and 1 Capsule before bedtime. Do all this for 10 days. Until gone.. 20 Capsule 0 03/07/2023 03/17/2023 Active documented as of this encounter (statuses as of 03/09/2023) Active Problems Problem Noted Date Diagnosed Date Right retinal detachment 12/12/2022 Epiretinal membrane (ERM) of right eye 3 Prediabetes 06/20/2017 Overview: Per Prediabetes protocol #1 Dysphagia 11/21/2016 Impacted cerumen of left ear 11/21/2016 Mild obstructive sleep apnea 12/30/2012 Overview: 01/09/13 PSG -- CPAP 7 cwp 12/16/12 PSG -- AHI 14.4 Care Plus Oxygen HTN, goal below 140/90 05/18/2010 Dyslipidemia, goal LDL below 130 04/21/2009 Overview: Per Lipid Taxonomy. Abdominal or pelvic swelling , mass, or lump, other specified site 09/09/2008 Overview: lump under right side of intestine-surgery recommended Family history of other cardiovascular diseases 07/03/2006 Overview: ICD-10 update of inactive term documented as of this encounter (statuses as of 03/09/2023) Resolved Problems Problem Noted Date Diagnosed Date Resolved Date Mixed dyslipidemia 07/03/2006 9 Overview: Per Lipid Taxonomy. documented as of this encounter (statuses as of 03/09/2023) Immunizations Name Administration Dates Next Due COVID-19 mRNA, LNP-s, No Pre serve, 2-Dose Series (Lumenis) 02/10/2021,07/14/2020,06/16/2020 COVID-19, LNP-s, No Preserve , Popeye-sucrose, Ages 12+ (Lumenis) 12/28/2021 Covid-19, Mrna, Lnp-s, Pf, B ivalent, 30 Mcg, IM, 12 yrs and above (Pfizer) 10/20/2022,03/17/2022 Pneumococcal Conjugate Vacci ne, 20-valent ([id number]) 10/20/2021 SEASONAL INFLUENZA, PF, 6 M & Above, IM , (FLULAVAL or FLUZONE) 02/27/2020,04/17/2019,04/17/2018 Seasonal Influenza, Quadriva lent, No Preserve, IM 01/25/2017,01/20/2016,04/15/2015 Seasonal Influenza, Split, I IV3, With Preserve, Inj 02/21/2013,01/12/2011,07/26/2010,2008,03/04/2008,03/18/2006,03/22/2005 TD, Preservative Free 10/23/2018 TDAP (age 11 and older)(Adacel) 08/12/2008 Varicella Zoster Vaccine (Adult) 08/06/2014 Zoster Vaccine Recombinant (Shingrix) 04/17/2019 ,10/23/2018 documented as of this encounter Social History Tobacco Use Types Packs/Day Years Used Date Smoking Tobacco: Never Smokeless Tobacco: Never Alcohol Use Standard Drinks/Week Comments Yes 0 (1 standard drink = 0.6 oz pure alcohol) 3 cans daily at most, but not all the time PHQ-2 Answer Date Recorded PHQ Adult Total Score 0 11/11/2022 Hunger Vital Sign Answer Date Recorded Within the past 12 months, y ou worried that your food would run out before you got the money to buy more. Never true 11/12/19 23 Within the past 12 months, t he food you bought just didn't last and you didn't have money to get more. Never true 11/11/2022 Sex and Gender Information Value Date Recorded Sex Assigned at Not on file Gender Identity Not on file Sexual Orientation Not on file Job Start Date Occupation Industry Not on file Not on file Not on file documented as of this encounter Miscellaneous Notes * Telephone Encounter - Thad Umaña OSA - 03/09/2023 12:01 PM EDT Patient scheduled 03/13/[address] Forbes. * Telephone Encounter - Yvette Field LPN - 03/08/2023 9:50 AM EDT Contact attempts are documented in 03/08 INN encounter. Ghada Field LPN Intake Nurse Navigator General Surgery and Breast [facility] * Telephone Encounter - Karrie Childs - 03/07/2023 6:14 PM EDT Request Summary [[id number]] Procedure: SURGERY REFERRAL OP Status: Needs Scheduling ([id number] Pending) Requested appt date: Authorizing: Yessenia Lopez MD in [facility] Referral: [id number] (Authorized) Priority: Within 3 days (urgent) Diagnosis: Mass of buttock [R22.2] Order Specific Questions Referral Priority Within 3 days (urgent) Where should this appointment be scheduled? [facility] What condition is the patient being seen for? General Surgery Conditions What condition is the patient being seen for? All other conditions Request History Action Date and Time User Details Request Created 03/07/2023 18:10 Yessenia Lopez MD Appointment Encounter, Details Workqueue Summary Current Workqueues Entry Current Tab GEN SURG RFL ORDERS [[id number]] 03/07/2023 18:10 Active Details Pt stated to please call his to schedule apt [phone] documented in this encounter Plan of Treatment Upcoming Encounters Date Type Department Care Team (Late st Contact Info) Description 03/13/2023 9:15 AM EST Office Visit General Surgery, [facility] [address] [place] [address] Jagruti Forbes MD [address] [place] [address] 05/22/2023 9:00 AM EST Office Visit Family Practice [facility] [place] [address] [facility] [place], [place] [address] Te Lassiter III, MD [address] [facility] [place], [place] [address] Health Maintenance Due Date Last Done Comments Cologuard 01/15/2001 Fecal Occult Blood Test 01/15/2001 Sigmoidoscopy 01/15/2001 Hepatitis B (1 of 3 - Risk 3-dose series) 2016 COVID-19 Vaccine ( season) 2023 10/20/2022, 03/17/2022, 12/28/2021, Additional history exists Influenza Vaccine (FLU shot) (#1) 2023 02/27/2020, 04/17/2019, 04/17/2018, Additional history exists Depression Screening 11/12/2023 11/11/2022 GFR 11/13/2023 11/12/2022, 2 , 10/12/2020, Additional history exists HbA1c 11/13/2023 11/12/2022, 2 , 04/16/2019, Additional history exists Colonoscopy 07/14/2025 07/15/2015, 050 09/2009, 09/09/2008 Colorectal Cancer Screening 07/14/2025 Albumin/Creatinine Ratio 11/18/2025 11/18/2022 Lipid Panel 11/13/2027 11/12/2022, 06/0 11/2020, 04/16/2019, Additional history exists DTaP,Tdap,and Td Vaccines (3 - Td or Tdap) 10/23/2028 10/23/2018, 08/12/2008 Zoster Vaccines Completed 04/17/2019, 10/06, 08/06/2014 Pneumococcal Vaccine: 65+ Years Completed 10/20/2021 GARDASIL-HPV IMMUNIZATION SERIES Aged Out No longer eligible based on patient's age to complete this topic MENINGOCOCCAL (MENACTRA/MENVEO) Aged Out No longer eligible based on patient's age to complete this topic documented as of this encounter Medical Devices Implanted Type Area Form Worker Device Identifier Shelf Expiration Date Model / Serial / Lot Envista Intraocular Lens Implanted:Qty: 1 on 11/18/2021 by Noble Rivera MD at OR [facility] Right: Eye [employer] 10/05/2022 [id number] / [id number] / [id number] Adatosil 5000 Oil Es 5000 S - [id number] - [id number] Implanted:Qty: 1 on 01/18/2023 by Quentin Caldera MD at OR [facility] Right: Eye BA[employer]CH [employer] LOMB : SURGICAL 05/07/2025 ES 5000 S / [id number] / [id number] documented as of this encounter Advance Directives Latest Code Status on File Code Status Date Activated Date Inactivated Comments Full Code 01/18/2023 12:26 PM 01/18/2023 8:40 PM This order reflects the patients wishes and were consensually agreed upon. Question Answer Comments Discussion of Advance Directives occurred with: Not Discussed due to patient's condition Code Status History Code Status Date Activated Date Inactivated Comments Full Code 12/12/2022 1:06 PM 12/12/2022 8:08 PM This or julio reflects the patients wishes and were consensually agreed upon. Question Answer Comments Discussion of Advance Directives occurred with: Not Discussed due to patient's condition Care Teams Licensed Loan Officer Assistant Relationship Specialty Start Date End Date Te Lassiter III, MD [address] [facility] [place] [address] PCP - General 09/06/02 documented as of this encounter
--- OUTSIDE RECORDS SUMMARY | 2023-03-17 23:07 | External Medical Summary | Summary of Care ---
Author Name Unknown Organization [facility] Address [address] [facility] [place] [address] Phone [phone] Care Team Providers Care Project Management Intern Name Role Phone Maikol SHEPHERD MD, Te Pérez Primary Care Provider [phone] Reason for Referral * Evaluate & Treat - Unlimited Visits (Within 3 days (urgent)) - Authorized Specialty Diagnoses / Procedures Referred By Enriqueta vincent Referred To Contact General Surgery Diagnoses Mass of buttock Yessenia Lopez MD [address] [facility] [place] [address] Referral ID Status Reason Start Date Expiration Date Visits Requested Visits Authorized [id number] Authorized Specialty Services Required 3 [phone] Question Answer Referral Priority Within 3 days (urgent) Where should this appointment be scheduled? [facility] What condition is the patient being seen for? General Surgery Conditions What condition is the patient being seen for? All other conditions Reason for Visit * Reason Comments Lump Encounter Details Date Type Department Care Team (Late st Contact Info) Description 03/07/2023 6:00 PM EDT Office Visit Family Practice [facility] [place] [address] [place] [address] Yessenia Lopez MD [address] [place] [phone] Mass of buttock* Allergies No known active allergiesdocumented as of this encounter (statuses as of 03/07/2023) Medications Medication Sig Dispensed Refills Start Date End Date Status CPAP every night at bedtime . 0 Active Lisinopril 20 MG Oral Tablet (Prinivil)Indicat ions:HTN, goal below 140/90 Take 1 Tablet by mouth in the morning. 90 Tablet 3 09/21/2022 Active metFORMIN HCl ER 500 MG Oral Tablet Extended Release 24 Hour (Glucophage XR)Indications:Pr ediabetes TAKE 3 TABLETS BY MOUTH EVERY DAY 270 Tablet 2 09/21/2022 Active Lisinopril-hydroC HLOROthiazide 20-25 MG Oral TabletIndications :HTN, goal below 140/90 Take 1 Tablet by mouth in the morning. 90 Tablet 1 11/30/2022 Active Atorvastatin Calcium 20 MG Oral Tablet (Lipitor)Indicati ons:Dyslipidemia, goal LDL below 130 TAKE 1 TABLET BY MOUTH EVERY DAY IN THE MORNING 90 Tablet 1 11/30/2022 Active PARoxetine HCl 40 MG Oral Tablet (pAXil) TAKE 1 TABLET BY MOUTH EVERY DAY IN THE MORNING 90 Tablet 3 12/01/2022 Active Doxycycline Hyclate 100 MG Oral CapsuleIndication s:Mass of buttock Take 1 Capsule by mouth in the morning and 1 Capsule before bedtime. Do all this for 10 days. Until gone.. 20 Capsule 0 03/07/2023 03/17/2023 Active Neomycin-Polymyxi n-Dexameth 3.5-09500-8.1 Ophthalmic Ointment (Maxitrol) Instill into the right eye 4 times a day. 3.5 g 3 12/13/2022 03/07/2023 Discontinued (End of Procedure) prednisoLONE Acetate 1 % Ophthalmic Suspension (Pred Forte) Instill 1 Drop into the right eye every morning. 0 03/07/2023 Discontinued (End of Procedure) documented as of this encounter (statuses as of 03/07/2023) Active Problems Problem Noted Date Diagnosed Date [...] as of this encounter (statuses as of 03/07/2023) Resolved Problems Problem Noted Date Diagnosed Date Resolved Date Mixed dyslipidemia 07/03/2006 9 Overview: Per Lipid Taxonomy. documented as of this encounter (statuses as of 03/07/2023) Immunizations Name Administration Dates Next Due COVID-19 mRNA, LNP-s, No Pre serve, 2-Dose Series (Treatful) 02/10/2021,07/14/2020,06/16/2020 COVID-19, LNP-s, No Preserve , Popeye-sucrose, Ages 12+ (Pfizer) 12/28/2021 Covid-19, Mrna, Lnp-s, Pf, B ivalent, 30 Mcg, IM, 12 yrs and above (Pfizer) 10/20/2022,03/17/2022 Pneumococcal Conjugate Vacci ne, 20-valent ([id number]) 10/20/2021 SEASONAL INFLUENZA, PF, 6 M & Above, IM , (FLULAVAL or FLUZONE) 02/27/2020,04/17/2019,04/17/2018 Seasonal Influenza, Quadriva lent, No Preserve, IM 01/25/2017,01/20/2016,04/15/2015 Seasonal Influenza, Split, I IV3, With Preserve, Inj 02/21/2013,01/12/2011,07/26/2010,2008,03/04/2008,03/18/2006 TD, Preservative Free 10/23/2018 TDAP (age 11 and older)(Adacel) 08/12/2008 Varicella Zoster Vaccine (Adult) 08/06/2014 Zoster Vaccine Recombinant (Shingrix) 04/17/2019 ,10/23/2018 documented as of this encounter Social History Tobacco Use Types Packs/Day Years Used Date Smoking Tobacco: Never Smokeless Tobacco: Never Tobacco Cessation:Counseling Given: Not Answered Alcohol Use Standard Drinks/Week Comments Yes 0 [...] on file documented as of this encounter Last Filed Vital Signs Vital Sign Reading Time Taken Comments Blood Pressure 134/82 03/07/2023 5:53 PM EDT Pulse 106 03/07/2023 5:53 PM EDT Temperature 37.3 C (99.1 F) 03/07/2023 5:53 PM ED T Respiratory Rate 18 03/07/2023 5:53 PM EDT Oxygen Saturation 94% 03/07/2023 5:53 PM EDT Inhaled Oxygen Concentration - - Weight 108 kg (238 lb) 03/07/2023 5:53 PM EDT Height - - Body Mass Index 33.21 11/11/2022 11:48 AM EDT documented in this encounter Progress Notes * Yessenia Lopez MD - 03/07/2023 5:58 PM EDT Subjective Chief Complaint Patient presents with Lump HPI: Luis Whittington is a 68 year old male. The following issues were addressed today: Patient here with c/o of 'hard lump' along inside of left buttock. Noticed about 10 days ago. Only painful if he pushes on it but otherwise has not bothered him. He denies overlying skin changes, redness, or swelling. Denies fever, chills, drainage, or bleeding. Seems to have gotten a little biggerover the past few days. Review of Systems: See HPI Objective BP 134/82 | Pulse 106 | Temp 37.3 C (99.1 F) (Tympanic) | Resp 18 | Wt 108 kg (238 lb) | SpO2 94% | BMI 33.21 kg/m | BSA 2.33 m Wt Readings from Last 3 Encounters: 03/07/23 108 kg (238 lb) 11/11/22 104.9 kg (231 lb 3.2 oz) 11/15/21 102.1 kg (225 lb) BP Readings from Last 3 Encounters: 03/07/23 134/82 01/18/23 132/67 12/12/22 125/73 General: Well-appearing, no acute distress Skin: Mehoopany-shaped indurated mass on inner left buttock just adjacent to intergluteal cleft Assessment & Plan 1. Mass of buttock Unclear etiology, possible abscess versus tract/fistula? Will start antibiotic coverage and refer to surgery for evaluation. - Doxycycline Hyclate 100 MG Oral Capsule; Take 1 Capsule by mouth in the morning and 1 Capsule before bedtime. Do all this for 10 days. Until gone.. Dispense: 20 Capsule; Refill: 0 - SURGERY REFERRAL OP Follow Up: Return if symptoms worsen or fail to improve. This note was electronically signed by Yessenia Lopez MD documented in this encounter Nursing Notes * Unique Juarez LPN - 03/07/2023 5:55 PM EDT Luis Whittington presents with complaints of hard lump beside anus. documented in this encounter Plan of Treatment Upcoming Encounters Date Type Department Care Team (Late st Contact Info) Description 05/22/2023 9:00 AM EST Office Visit Family Practice [place] [facility] [place] [address] [place] [address] Sargent Te SHEPHERD MD [address] [facility] [place] [address] Scheduled Referrals Name Type Priority Associated Diagnoses Orde r Schedule SURGERY REFERRAL OP Referral Within 3 day s (urgent) Mass of buttock Ordered: 03/07/2023 Health Maintenance Due Date Last Done Comments [...] 04/16/2019, Additional history exists Colonoscopy 07/14/2025 07/15/2015, 05/0 09/2009, 09/09/2008 Colorectal Cancer Screening 07/14/2025 Albumin/Creatinine [...] this encounter Medical Devices Implanted Type Area Fruit Inspector Device Identifier Shelf Expiration Date Model / Serial / Lot Envista Intraocular Lens Implanted:Qty: 1 on 11/18/2021 by oNble Rivera MD at OR [facility] Right: Eye [employer] 10/05/2022 [id number] / [id number] / [id number] Adatosil 5000 Oil Es 5000 S - [id number] - [id number] Implanted:Qty: 1 on 01/18/2023 by Quentin Caldera MD at OR [facility] Right: Eye BAUSCH & LOMB : SURGICAL 05/07/2025 ES 5000 S / [id number] / [id number] documented as of this encounter Visit Diagnoses Diagnosis Mass of buttock- Primary documented in this encounter Advance Directives Latest Code Status [...] Discussed due to patient's condition Care Teams Project Management Intern Relationship Specialty Start Date End Date Te Lassiter III, MD [address] [place] [address] PCP - General 09/06/02 documented as of this encounter"
--- OUTSIDE RECORDS SUMMARY | 2023-03-17 23:07 | External Medical Summary | Summary of Care ---
Author Name Unknown Organization [facility] Address [address] [facility] [place] [address] Phone [phone] Care Team Providers Care Manager Ct Name Role Phone Maikol SHEPHERD MD, eT Pérez Primary Care Provider [phone] Reason for Visit * Reason Comments Post-Op 1 week follow up s/p repair of RD OD. History of RD OD and ERM OD. Encounter Details Date Type Department Care Team (Late st Contact Info) Description 02/24/2023 11:45 AM EDT Office Visit Ophthalmology, [facility] [address] [facility] [place] [address] Quentin Caldera MD [address] [place] [address] [place] [address] Right retinal detachment*; Epiretinal membrane (ERM) of right eye Allergies No known active allergiesdocumented as of this encounter (statuses as of 02/27/2023) Medications Medication Sig Dispensed Refills Start Date End Date Status CPAP every night at bedtime . 0 Active Lisinopril 20 MG Oral Tablet (Prinivil)Indicati ons:HTN, goal below 140/90 Take 1 Tablet by mouth in the morning. 90 Tablet 3 09/21/2022 Active metFORMIN HCl ER 500 MG Oral Tablet Extended Release 24 Hour (Glucophage XR)Indications:Pre diabetes TAKE 3 TABLETS BY MOUTH EVERY DAY 270 Tablet 2 09/21/2022 Active Lisinopril-hydroCH LOROthiazide 20-25 MG Oral TabletIndications: HTN, goal below 140/90 Take 1 Tablet by mouth in the morning. 90 Tablet 1 11/30/2022 Active Atorvastatin Calcium 20 MG Oral Tablet (Lipitor)Indicatio ns:Dyslipidemia, goal LDL below 130 TAKE 1 TABLET BY MOUTH EVERY DAY IN THE MORNING 90 Tablet 1 11/30/2022 Active PARoxetine HCl 40 MG Oral Tablet (pAXil) TAKE 1 TABLET BY MOUTH EVERY DAY IN THE MORNING 90 Tablet 3 12/01/2022 Active Neomycin-Polymyxin -Dexameth 3.5-91149-6.1 Ophthalmic Ointment (Maxitrol) Instill into the right eye 4 times a day. 3.5 g 3 12/13/2022 Active Additional Information Patient not taking.Reported on 02/24/2023 prednisoLONE Acetate 1 % Ophthalmic Suspension (Pred Forte) Instill 1 Drop into the right eye every morning. 0 Active documented as of this encounter (statuses as of 02/27/2023) Active Problems Problem Noted Date Diagnosed Date [...] as of this encounter (statuses as of 02/27/2023) Resolved Problems Problem Noted Date Diagnosed Date Resolved Date Mixed dyslipidemia 07/03/2006 9 Overview: Per Lipid Taxonomy. documented as of this encounter (statuses as of 02/27/2023) Immunizations Name Administration Dates Next Due COVID-19 mRNA, LNP-s, No Pre serve, 2-Dose Series (multiBIND biotec) 02/10/2021,07/14/2020,06/16/2020 COVID-19, LNP-s, No Preserve , Popeye-sucrose, Ages 12+ (Pfizer) 12/28/2021 Covid-19, Mrna, Lnp-s, Pf, B ivalent, 30 Mcg, IM, 12 yrs and above (Pfizer) 10/20/2022,03/17/2022 Pneumococcal Conjugate Vacci ne, 20-valent ([id number]) 10/20/2021 SEASONAL INFLUENZA, PF, 6 M & [...] on file documented as of this encounter Progress Notes * Quentin Caldera MD - 02/24/2023 12:12 PM EDT 02/27/2023 Nursing Notes: PILLO Rehman 02/24/23 1210 Signed Luis Emilia Whittington is a 68 year old male who presents for Chief Complaint Patient presents with Post-Op 1 week follow up s/p repair of RD OD. History of RD OD and ERM OD. 02/16/2023 (in office), Visit date not found (telemedicine) Has your medical history changed since your last office visit? No, he does not check his BS. He currently states his right eye is still blurry. There has been no change since his last visit. He continues Prednisolone QD OD as directed. He is not doing his head positioning. He does sleep on his right side most of the time. Are you diabetic? YES. Pre Diabetic, Do you check your sugar daily? YES. Did not measure this morning. Last Hemoglobin A1C: Lab Results Component Value Date/Time HGBA1C 6.1 (H) 11/12/2022 08:31 AM HGBA1C 5.9 (H) 08/25/2021 08:17 AM HGBA1C 6.1 (H) 04/16/2019 03:07 PM HGBA1C 6.0 03/31/2017 07:14 AM HGBA1C 5.9 04/18/2016 07:56 AM Do you know your last Hemoglobin AIC level? YES. 6.1 Current Ophthalmic Medications: Prednisolone acetate 1% op soln 1 drop daily right eye Vision, IOP, confrontation chavez, motility, pupil check and dilation per physician protocol can befound on the Ophth exam. Nursing notes reviewed. Base Eye Exam Visual Acuity (Snellen - Linear) Right Left Dist sc 20/250 -1 20/50 -1 Dist ph sc 20/150 NI Tonometry (Tonopen, 12:08 PM) Right Left Pressure 12 18 Pupils Dark React APD Right 3 Brisk None Left 3 Brisk None Visual Chavez (Counting fingers) Right Left Full Full Extraocular Movement Right Left Full Full Neuro/Psych Oriented x3: Yes Mood/Affect: Normal Dilation Right eye: 1.0% Mydriacyl, 2.5% Phenylephrine, 0.5% Proparacaine @ 12:09 PM Patient cautioned that effects of dilation may last 2-7 hours dependant upon individual reaction. It was discussed that driving while dilated is not recommended. Slit Lamp and Fundus Exam External Exam Right Left External Normal Slit Lamp Exam Right Left Lids/Lashes Normal Conjunctiva/Sclera EMMETT, vicryl sutures Cornea Clear Anterior Chamber Deep and quiet Iris Round and reactive Lens Posterior chamber intraocular lens Fundus Exam Right Left Vitreous 5000 CS silicone oil fill Disc Normal C/D Ratio 0.4 Macula s/p Peel Vessels Normal Periphery laser 360, inferior heavy laser, good buckle imbrication.small inferior srfluid anterior to maturing laser. OCT Interpretation: OD: no erm, inferior srf--worse OS: n/a Assessment/Plan: 1. Right retinal detachment Initial surgery on 11/23/22 for symptomatic retinal detachment. He came back to the OR on 12/12/22 after noticing a shade in his vision. He had a superior and inferior retinal detachment with tears at 1and 5:30. 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 He was doing well post op, but I saw him prior to his planned vacation in early January and noticed the tear at 5:30 had opened back up. I took him back to the OR on 01/18/23 and placed a 41 band scleralbuckle with a tire superiornasal and replaced the 1000 CS silicone oil with 5000 CS silicone oil. At this point I drained through the tear. Again he looked OK post op until early January at which point subretinal fluid was noted inferior. Initially it appeared to be improving and I did not appreciate an open tear, but when I looked at him on 02/24/23 the fluid was worse and he was beginning to develop PVR. I discussed this with Luis and he was clearly disappointed. I discussed options including continuedobservation, return to the OR for membrane peeling and repeat oil or gas, inferior retinectomy, Rylan brought up the idea of short term PFO which would cover the inferior pathology and allow for easier positioning. I also offered him a second opinion with your group as this is local or with [facility] retina doctors in [place] or with [facility]. He chose to go to your office. I appreciate your input and let me know how I can help. Drops: Continue prednisolone qd Maxitrol ankit PRN irritation 2. Epiretinal membrane (ERM) of right eye S/p MP FOLLOW UP: Follow Up: Return for 1-2 weeks second opinioni at [facility] for recurrent retinal detachment. | For: 1-2 weeks second opinioni at [facility] for recurrent retinal detachment Follow Up: Return for 1-2 weeks second opinioni at [facility] for recurrent retinal detachment. | For: 1-2 weeks second opinioni at [facility] for recurrent retinal detachment Dr. Caldera documented in this encounter Nursing Notes * PILLO Rehman - 02/24/2023 11:57 AM EDT Luis Whittington is a 68 year old male who presents for Chief Complaint Patient presents with Post-Op 1 week follow up s/p repair of RD OD. History of RD OD and ERM OD. 02/16/2023 (in office), Visit date not found (telemedicine) Has your medical history changed since your last office visit? No, he does not check his BS. He currently states his right eye is still blurry. There has been no change since his last visit. He continues Prednisolone QD OD as directed. He is not doing his head positioning. He does sleep on his right side most of the time. Are you diabetic? YES. Pre Diabetic, Do you check your sugar daily? YES. Did not measure this morning. Last Hemoglobin A1C: Lab Results Component Value Date/Time HGBA1C 6.1 (H) 11/12/2022 08:31 AM HGBA1C 5.9 (H) 08/25/2021 08:17 AM HGBA1C 6.1 (H) 04/16/2019 03:07 PM HGBA1C 6.0 03/31/2017 07:14 AM HGBA1C 5.9 04/18/2016 07:56 AM Do you know your last Hemoglobin AIC level? YES. 6.1 Current Ophthalmic Medications: Prednisolone acetate 1% op soln 1 drop daily right eye Vision, IOP, confrontation chavez, motility, pupil check and dilation per physician protocol can befound on the Ophth exam. documented in this encounter Plan of Treatment Upcoming Encounters Date Type Department Care Team (Late st Contact Info) Description 05/22/2023 9:00 AM EST Office Visit Family Practice [facility] [address] [place] [address] Te Lassiter III, MD [address] [place] [address] Scheduled Orders Name Type Priority Associated Diagnoses Orde r Schedule RETINA SCAN DIAGNOSTIC IMAGE, POSTERIOR Procedures Routine Right retinal detachment Ordered: 02/24/2023 Health Maintenance Due Date Last Done Comments Cologuard 01/15/2001 Fecal Occult Blood Test 01/15/2001 Sigmoidoscopy 01/15/2001 Hepatitis B (1 of 3 - Risk 3-dose series) 2016 COVID-19 Vaccine ( season) 2023 10/20/2022, 03/17/2022, 12/28/2021, Additional history exists Influenza Vaccine (FLU shot) (#1) 2023 02/27/2020, 04/17/2019, 04/17/2018, Additional history exists Depression Screening 11/12/2023 11/11/2022 GFR 11/13/2023 11/12/2022, 04/2 , 10/12/2020, Additional history exists HbA1c 11/13/2023 11/12/2022, 04/2 , 04/16/2019, Additional history exists Colonoscopy 07/14/2025 [...] this encounter Medical Devices Implanted Type Area Dispensing Audiologist Device Identifier Shelf Expiration Date Model / Serial / Lot Envista Intraocular Lens Implanted:Qty: 1 on 11/18/2021 by Noble Rivera MD at OR [facility] Right: Eye [employer] 10/05/2022 [id number] / [id number] / [id number] Adatosil 5000 Oil Es 5000 S - [id number] - [id number] Implanted:Qty: 1 on 01/18/2023 by Quentin Caldera MD at OR [facility] Right: Eye [employer] LOM[employer] : SURGICAL 05/07/2025 ES 5000 S / [id number] / [id number] documented as of this encounter Visit Diagnoses Diagnosis Right retinal detachment- Primary Unspecified retinal detachment Epiretinal membrane (ERM) of right eye documented in this encounter Advance Directives Latest [...] Discussed due to patient's condition Care Teams Manager Ct Relationship Specialty Start Date End Date Te Lassiter III, MD [address] [place] [address] PCP - General 09/06/02 documented as of this encounter"
--- OUTSIDE RECORDS SUMMARY | 2023-03-17 23:07 | External Medical Summary | Summary of Care ---
Author Name Unknown Organization [facility] Address [address] [facility] [place] [address] Phone [phone] Care Team Providers Care Audit Intern Name Role Phone Maikol SHEPHERD MD, Te Pérez Primary Care Provider [phone] Reason for Visit * Reason Comments Post-Op 1 day post op , repa ir vitrectomy OD Dr. Caldera Encounter Details Date Type Department Care Team Description 01/19/2023 Office Visit Ophthalmology, [facility] [address] [place] [address] Kendall Fernandez, [address] [place] [address] Right retinal detachment* Allergies No known active allergiesdocumented as of this encounter (statuses as of 02/24/2023) Medications Medication Sig Dispensed Refills Start Date End Date Status CPAP every night at bedtime . 0 Active Lisinopril 20 MG Oral Tablet (Prinivil)Indication s:HTN, goal below 140/90 Take 1 Tablet by mouth in the morning. 90 Tablet 3 09/21/2022 Active metFORMIN HCl ER 500 MG Oral Tablet Extended Release 24 Hour (Glucophage XR)Indications:Predi abetes TAKE 3 TABLETS BY MOUTH EVERY DAY 270 Tablet 2 09/21/2022 Active Lisinopril-hydroCHLO ROthiazide 20-25 MG Oral TabletIndications:HT N, goal below 140/90 Take 1 Tablet by mouth in the morning. 90 Tablet 1 11/30/2022 Active Atorvastatin Calcium 20 MG Oral Tablet (Lipitor)Indications :Dyslipidemia, goal LDL below 130 TAKE 1 TABLET BY MOUTH EVERY DAY IN THE MORNING 90 Tablet 1 11/30/2022 Active PARoxetine HCl 40 MG Oral Tablet (pAXil) TAKE 1 TABLET BY MOUTH EVERY DAY IN THE MORNING 90 Tablet 3 12/01/2022 Active Ohqoaqnm-Sxxtsakqa-D exameth 3.5-25034-5.1 Ophthalmic Ointment (Maxitrol) Instill into the right eye 4 times a day. 3.5 g 3 12/13/2022 Active documented as of this encounter (statuses as of 02/24/2023) Active Problems Problem Noted Date Right retinal detachment 12/12/2022 Epiretinal membrane (ERM) of right eye 0 11/17/2022 Prediabetes 06/20/2017 Overview: Per Prediabetes protocol #1 Dysphagia 11/21/2016 Impacted cerumen of left ear 11/21/2016 Mild obstructive sleep apnea 12/30/2012 Overview: 01/09/13 PSG -- CPAP 7 cwp 12/16/12 PSG -- AHI 14.4 Care Plus Oxygen HTN, goal below 140/90 05/18/2010 Dyslipidemia, goal LDL below 130 009 Overview: Per Lipid Taxonomy. Abdominal or pelvic swelling, mass, or l ump, other specified site 09/09/2008 Overview: lump under right side of intestine-surgery recommended Family history of other cardiovascular d iseases 07/03/2006 Overview: ICD-10 update of inactive term documented as of this encounter (statuses as of 02/24/2023) Resolved Problems Problem Noted Date Resolved Date Mixed dyslipidemia 07/03/2006 04/21/2009 Overview: Per Lipid Taxonomy. documented as of this encounter (statuses as of 02/24/2023) Immunizations Name Administration Dates Next Due COVID-19 mRNA, LNP-s, No Pre serve, 2-Dose Series (FirstString) 02/10/2021,07/14/2020,06/16/2020 COVID-19, LNP-s, No Preserve , Popeye-sucrose, Ages 12+ (FirstString) 12/28/2021 Covid-19, Mrna, Lnp-s, Pf, B ivalent, 30 Mcg, IM, 12 yrs and above (Pfizer) 10/20/2022,03/17/2022 Pneumococcal Conjugate Vacci ne, 20-valent ([id number]) 10/20/2021 SEASONAL INFLUENZA, PF, 6 M & [...] Never Smokeless Tobacco: Never Tobacco Cessation:Counseling Given: No Alcohol Use Standard Drinks/Week Comments Yes 0 (1 standard drink = 0.6 oz pure alcohol) 3 cans daily at most, but not all the time Food Insecurity Answer Date Recorded Within the past 12 months, y ou worried that your food would run out before you got money to buy more. Never true 11/11/2022 Within the past 12 months, t he food you bought just didn't last and you didn't have money to get more. Never true 11/11/2022 Sex Assigned at Date Recorded Not on file Job Start Date Occupation Industry Not on file Not on file Not on file documented as of this encounter Progress Notes * Kendall Fernandez DO - 01/19/2023 2:30 PM EDT [facility] [place] Nursing notes reviewed. Mood and affect: normal POST-RETINA SURGERY NOTE: HPI: Luis Whittington is a 68 year old male s/p retinal surgery. No complaints. Base Eye Exam Visual Acuity (Snellen - Linear) Right Left Dist sc 20/200 20/30 -2 Dist ph sc 20/100 Tonometry (Tonopen, 2:31 PM) Right Left Pressure 18 17 Pupils Pupils Light Shape React APD Right PERRL 3 Round Slow None Left PERRL 3 Round Brisk None Visual Chavez (Counting fingers) Right Left Full Full Extraocular Movement Right Left Full Full Neuro/Psych Oriented x3: Yes Dilation Both eyes: 0.5% Proparacaine @ 2:31 PM Dilation #2 Right eye: 1.0% Mydriacyl, 2.5% Phenylephrine @ 2:31 PM Dilation Comments Patient cautioned that effects of dilation may last 2-7 hours dependant upon individual reaction. It was discussed that driving while dilated is not recommended. EXTERNAL: mild periorbital ecchymosis/edema. MOTILITY: full OU SLE/DFE OD: Lids/Lashes: wnl Conjunctiva/Sclera: +mild subconj. heme, sutures Cornea: cental epi defect Anterior Chamber: deep and trace cell/flare Iris: wnl Lens: PCIOL Dilated fundus exam: optic nerve: no pallor/edema retina: all flat, flat under oil , fresh laser inferiorly A/P: 1. S/P 23G PPV/SB/5000cs oil for recurrent RD OD -surgery date: 01/18/2023-[facility] -POD#1 -IOP wnl; no infection; retina all flat -Abx 1 drop 4x/day for 7 total days -Pred forte 1 drop 4x/day x 1 week, then 3x/day for 1 week, then 2x/day for 1 week, then 1x/day for1 week, then stop -No heavy lifting/pushing/pulling/bending below waist -XS Tylenol as directed and needed for discomfort -Gas precautions (no air travel, no travel above 3000 ft) until gas resolved -Gas Bracelet in place until gas resolved -Continue face forward/chin down/face down/right side down/left side down; No lying on back until gas resolved -Eye shield on while sleeping for 1 week -Face down 10 minutes an hour and otherwise on his right side (tear was at 530) -Patient is to f/u immediately if he develops worsening redness, eye pain, decrease in vision, nausea/vomiting, or discharge from eye, as these could be signs of an infection or increased pressure. F/u 1 week w/ retina or sooner if problems Kendall Fernandez DO CC: Quentin Caldera MD CC: PCP: Te Lassiter III, MD documented in this encounter Nursing Notes * Dilip Rueda RN - 01/19/2023 2:33 PM EDT Luis Whittington is a 68 year old year old male who presents for .1 day post op , repair vitrectomy OD Last Office Visit: 01/13/2023 (in office), Visit date not found (telemedicine) Patient currently states " I can't see " Are you diabetic? No Do you drive? yes documented in this encounter Plan of Treatment Upcoming Encounters Date Type Specialty Care Team Description 05/22/2023 Office Visit Family Medicine Te Lassiter III, MD [address] [place] [id number] Health Maintenance Due Date Last Done Comments Cologuard 01/15/2001 Fecal Occult Blood Test 01/15/2001 Sigmoidoscopy 01/15/2001 COVID-19 Vaccine ( season) 2023 10/20/2022, 03/17/2022, 12/28/2021, Additional history exists Influenza Vaccine (FLU shot) (#1) 2023 02/27/2020, 04/17/2019, 04/17/2018, Additional history exists Depression Screening 11/12/2023 11/11/2022 GFR 11/13/2023 11/12/2022, 04/2 , 10/12/2020, Additional history exists HbA1c 11/13/2023 11/12/2022, 2 , 04/16/2019, Additional history exists Colonoscopy 07/14/2025 07/15/2015, 0 09/2009, 09/09/2008 Colorectal Cancer Screening 07/14/2025 Albumin/Creatinine Ratio 11/18/2025 11/18/2022 Lipid Panel 11/13/2027 11/12/2022, 11/2020, 04/16/2019, Additional history exists DTaP,Tdap,and Td Vaccines (3 - Td or Tdap) 10/23/2028 10/23/2018, 08/12/2008 Zoster Vaccines Completed 04/17/2019, 10/06, 08/06/2014 Pneumococcal Vaccine: 65+ Years Completed 10/20/2021 GARDASIL-HPV IMMUNIZATION SERIES Aged Out No longer eligible based on patient's age to complete this topic Hepatitis B Aged Out No longer eligi ble based on patient's age to complete this topic MENINGOCOCCAL (MENACTRA/MENVEO) Aged Out No longer eligible based on patient's age to complete this topic documented as of this encounter Medical Devices Implanted Type Area Tumbler Machine Operator Helper Device Identifier Shelf Expiration Date Model / Serial / Lot Envista Intraocular Lens Implanted:Qty: 1 on 11/18/2021 by Noble Rivera MD at OR [facility] Right: Eye [employer] 10/05/2022 [id number] / [id number] / [id number] Adatosil 5000 Oil Es 5000 S - [id number] - [id number] Implanted:Qty: 1 on 01/18/2023 by Quentin Caldera MD at OR [facility] Right: Eye [employer]OM[employer] : SURGICAL 05/07/2025 ES 5000 S / [id number] / [id number] documented as of this encounter Visit Diagnoses Diagnosis Right retinal detachment- Primary Unspecified retinal detachment documented in this encounter Advance Directives Latest [...] Discussed due to patient's condition Care Teams Audit Intern Relationship Specialty Start Date End Date Te Lassiter III, MD [address] [place] [address] PCP - General 09/06/02 documented as of this encounter
--- OUTSIDE RECORDS SUMMARY | 2023-03-17 23:07 | External Medical Summary | Summary of Care ---
Author Name Unknown Organization [facility] Address [address] [facility] [place] [address] Phone [phone] Care Team Providers Care Cigarette Lighter Repairer Name Role Phone Maikol SHEPHERD MD, Te Pérez Primary Care Provider [phone] Reason for Visit * Reason Onset Date Comments FYI 02/24/2023 Encounter Details Date Type Department Care Team Description 02/24/2023 Telephone Ophthalmology, [facility] [address] [place] [address] Quentin Caldera MD [address] [place] [address] FYI Allergies No known active allergiesdocumented as of [...] 90 Tablet 3 12/01/2022 Active Neomycin-Polymyxin -Dexameth 3.5-41527-7.1 Ophthalmic Ointment (Maxitrol) Instill into the right [...] mRNA, LNP-s, No Pre serve, 2-Dose Series (CleanApp) 02/10/2021,07/14/2020,06/16/2020 COVID-19, LNP-s, No Preserve , Popeye-sucrose, Ages 12+ (Pfizer) 12/28/2021 Covid-19, Mrna, Lnp-s, Pf, B ivalent, 30 Mcg, IM, 12 yrs and above (Pfizer) 10/20/2022,03/17/2022 Pneumococcal Conjugate Vacci ne, 20-valent ([id number]) 10/20/2021 SEASONAL INFLUENZA, PF, 6 M & [...] encounter Miscellaneous Notes * Telephone Encounter - MORIS Clemons - 02/24/2023 12:39 PM EDT Patient is scheduled with Dr. Jaime Sharma at [facility] for second opinion of recurrent right retinal detachment on Thursday 03/08 @ 8:30am. Patient aware and agreeable. MORIS Clemons 02/24/2023 12:45 PM documented in this encounter Plan of Treatment Upcoming Encounters Date Type Specialty Care Team Description 05/22/2023 Office Visit Family Medicine Maikol SHEPHERD, Te Pérez MD [address] [place] [address] Health Maintenance Due Date Last Done Comments [...] this encounter Medical Devices Implanted Type Area Service Car Driver Device Identifier Shelf Expiration Date Model / Serial / Lot Envista Intraocular Lens Implanted:Qty: 1 on 11/18/2021 by Noble Rivera MD at OR [facility] Right: Eye [employer] 10/05/2022 [id number] / [id number] / [id number] Adatosil 5000 Oil Es 5000 S - [id number] - [id number] Implanted:Qty: 1 on 01/18/2023 by Quentin Caldera MD at OR [facility] Right: Eye [employer]OM[employer] : SURGICAL 05/07/2025 ES 5000 S / [id number] / [id number] documented as of this encounter Advance Directives [...] Discussed due to patient's condition Care Teams Cigarette Lighter Repairer Relationship Specialty Start Date End Date Te Lassiter III, MD [address] [place] [id number] PCP - General 09/06/02 documented as of this encounter
--- OUTSIDE RECORDS SUMMARY | 2023-03-17 23:07 | External Medical Summary | Summary of Care ---
Author Name Unknown Organization [facility] Address [address] [place] [address] Phone [phone] Care Team Providers Care Stewardess Supervisor Name Role Phone Maikol SHEPHERD MD, Te Pérez Primary Care Provider [phone] Reason for Visit * Reason Onset Date Comments Referral 03/08/2023 Encounter Details Date Type Department Care Team (Late st Contact Info) Description 03/08/2023 Telephone General Surgery, [place] [address], [place] [id number] Services, [facility] [address] [place] [address] Referral Allergies No known active allergiesdocumented as of this encounter (statuses as of 03/08/2023) Medications Medication Sig Dispensed Refills Start Date [...] as of this encounter (statuses as of 03/08/2023) Active Problems Problem Noted Date Diagnosed Date [...] as of this encounter (statuses as of 03/08/2023) Resolved Problems Problem Noted Date Diagnosed Date Resolved Date Mixed dyslipidemia 07/03/2006 12/15/200 9 Overview: Per Lipid Taxonomy. documented as of this encounter (statuses as of 03/08/2023) Immunizations Name Administration Dates Next Due COVID-19 mRNA, LNP-s, No Pre serve, 2-Dose Series (Cuciniale) 02/10/2021,07/14/2020,06/16/2020 COVID-19, LNP-s, No Preserve , Popeye-sucrose, Ages 12+ (Cuciniale) 12/28/2021 Covid-19, Mrna, Lnp-s, Pf, B ivalent, 30 Mcg, IM, 12 yrs and above (Pfizer) 10/20/2022,03/17/2022 Pneumococcal Conjugate Vacci ne, 20-valent ([id number]) 10/20/2021 SEASONAL INFLUENZA, PF, 6 M & [...] encounter Miscellaneous Notes * Telephone Encounter - Yvette Field LPN - 03/08/2023 9:51 AM EDT Referral from: Dr. Lopez Consult: General Surgery For: buttock mass Attempted to contact patient to schedule appointment - left message on primary phone for patient toreturn call. MyG sent. Will offer appointment with first available [place] provider. Ghada Field LPN Intake Nurse Navigator General Surgery and Breast Clinic [facility] documented in this encounter Plan of Treatment Upcoming Encounters Date Type Department Care Team (Late st Contact Info) Description 05/22/2023 9:00 AM EST Office Visit Family Practice [facility] [place] [address] [facility] [place] [address] Te Lassiter III, MD [address] [facility] [place] [address] Health Maintenance Due Date Last Done Comments [...] Ratio 11/18/2025 11/18/2022 Lipid Panel 11/13/2027 11/12/2022, 060 11/2020, 04/16/2019, Additional history exists DTaP,Tdap,and Td [...] this encounter Medical Devices Implanted Type Area Patcher Device Identifier Shelf Expiration Date Model / Serial / Lot Envista Intraocular Lens Implanted:Qty: 1 on 11/18/2021 by Noble Rivera MD at OR [facility] Right: Eye BAUSCH & LOMB 10/05/2022 [id number] / [id number] / [id number] Adatosil 5000 Oil Es 5000 S - [id number] - [id number] Implanted:Qty: 1 on 01/18/2023 by Quentin Caldera MD at OR [facility] Right: Eye BAUSCH & LOMB : SURGICAL 05/07/2025 ES 5000 S / [id number] / [id number] documented as of this encounter Advance Directives [...] Discussed due to patient's condition Care Teams Stewardess Supervisor Relationship Specialty Start Date End Date Te Lassiter III, MD [address] [facility], [place] [address] PCP - General 09/06/02 documented as of this encounter
--- OUTSIDE RECORDS SUMMARY | 2023-03-17 23:07 | External Medical Summary | Summary of Care ---
Author Name Unknown Organization [facility] Address [address] [facility] [place] [address] Phone [phone] Care Team Providers Care Software Quality Specialist Name Role Phone Maikol SHEPHERD MD, Te Pérez Primary Care Provider [phone] Reason for Visit * Reason Comments Post-Op 2 weeks OS 01/18/23 Encounter Details Date Type Department Care Team Description 02/09/2023 Office Visit Ophthalmology, [facility] [address] [place] [address] Kendall Fernandez, DO [address] [place] [address] Right retinal detachment*; Epiretinal membrane (ERM) of [...] THE MORNING 90 Tablet 3 12/01/2022 Active Xducrooj-Uaytkmtsb-J exameth 3.5-40310-7.1 Ophthalmic Ointment (Maxitrol) Instill into the right [...] mRNA, LNP-s, No Pre serve, 2-Dose Series ([email or web address]) 02/10/2021,07/14/2020,06/16/2020 COVID-19, LNP-s, No Preserve , Popeye-sucrose, Ages 12+ (Pfizer) 12/28/2021 Covid-19, Mrna, Lnp-s, Pf, B ivalent, 30 Mcg, IM, 12 yrs and above (Pfizer) 10/20/2022,03/17/2022 Pneumococcal Conjugate Vacci ne, 20-valent ([id number]) 10/20/2021 SEASONAL INFLUENZA, PF, 6 M & [...] Progress Notes * Kendall Fernandez DO - 02/09/2023 9:30 AM EDT 02/09/2023 Nursing Notes: Dilip Rueda RN 02/09/23 0930 Signed Luis Emilia Nelsy is a 68 year old year old male who presents for Retinal Detachment OD. Last Office Visit: 01/24/2023 (in office), Visit date not found (telemedicine) Patient currently states " my right eye is blurry, mara" Are you diabetic? No Do you drive? yes OCT image(s) of right eye acquired and filed/scanned into chart. Nursing notes reviewed. Base Eye Exam Visual Acuity (Snellen - Linear) Right Left Dist sc 20/200 +2 20/30 +2 Dist ph sc 20/80 -2 Tonometry (Tonopen, 9:27 AM) Right Left Pressure 10 16 Pupils Pupils Light Shape React APD Right PERRL 3 Round Brisk None Left PERRL 3 Round Brisk None Visual Chavez (Counting fingers) Right Left Full Full Extraocular Movement Right Left Full Full Neuro/Psych Oriented x3: Yes Mood/Affect: Normal Dilation Both eyes: 0.5% Proparacaine @ 9:26 AM Dilation #2 Both eyes: 1.0% Mydriacyl, 2.5% Phenylephrine @ 9:27 AM Dilation Comments Patient cautioned that effects of [...] and reactive Lens Posterior chamber intraocular lens Anterior Vitreous 5000 CS silicone oil fill Fundus Exam Right Left Disc Normal C/D Ratio 0.4 Macula s/p Peel Vessels Normal Periphery laser 360, inferior heavy laser, good buckle imbrication. OCT Interpretation: OD: no erm, inferior srf OS: n/a Assessment/Plan: 1. 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 Epiretinal membrane (ERM) of right eye S/p MP Drops: initiate taper of Prednisolone (pink cap) 3-2-1 Maxitrol ankit PRN irritation - IOP wnl; no infection; retina all flat - Patient is to f/u immediately if he develops worsening redness, eye pain, decrease in vision, nausea/vomiting, or discharge from eye, as these could be signs of an infection or increased pressure. FOLLOW UP: 1 week, dilate and OCT OD Kendall Fernandez DO CC: Dr. Caldera documented in this encounter Nursing Notes * Dilip Rueda RN - 02/09/2023 9:29 AM EDT Luis Whittington is a 68 year old year old male who presents for Retinal Detachment OD. Last Office Visit: 01/24/2023 (in office), Visit date not found (telemedicine) Patient currently states " my right eye is blurry, mara" Are you diabetic? No Do you drive? yes OCT image(s) of right eye acquired and filed/scanned into chart. documented in this encounter Plan of Treatment Upcoming Encounters Date Type Specialty Care Team Description 05/22/2023 Office Visit Family Medicine Meagher III, Te Pérez MD [address] [place] [address] Scheduled Orders Name Type Priority Associated Diagnoses Orde r Schedule RETINA SCAN DIAGNOSTIC IMAGE, POSTERIOR Procedures Routine Right retinal detachment Ordered: 02/09/2023 Health Maintenance Due Date Last Done Comments Cologuard 01/15/2001 Fecal Occult Blood Test 01/15/2001 Sigmoidoscopy 01/15/2001 COVID-19 Vaccine ( season) 2023 10/20/2022, 03/17/2022, 12/28/2021, Additional history exists Influenza Vaccine (FLU shot) (#1) 2023 02/27/2020, 04/17/2019, 04/17/2018, Additional history exists Depression Screening 11/12/2023 11/11/2022 GFR 11/13/2023 11/12/2022, 08/07, 10/12/2020, Additional history exists HbA1c 11/13/2023 11/12/2022, 08/07, 04/16/2019, Additional history exists Colonoscopy 07/14/2025 07/15/2015, [...] this encounter Medical Devices Implanted Type Area Hydroponics Grower Device Identifier Shelf Expiration Date Model / Serial / Lot Envista Intraocular Lens Implanted:Qty: 1 on 11/18/2021 by Noble Rivera MD at OR [facility] Right: Eye BAUSCH & LOMB 10/05/2022 [id number] / [id number] / [id number] Adatosil 5000 Oil Es 5000 S - [id number] - [id number] Implanted:Qty: 1 on 01/18/2023 by Quentin Caldera MD at OR [facility] Right: Eye BAUSCH & LOMB : SURGICAL 05/07/2025 ES 5000 S / [id number] / [id number] documented as of this encounter Visit Diagnoses [...] Discussed due to patient's condition Care Teams Software Quality Specialist Relationship Specialty Start Date End Date Maikol SHEPHERD, Te Pérez MD [address] [place] [address], [place] [address] PCP - General 09/06/02 documented as of this encounter
--- OUTSIDE RECORDS SUMMARY | 2023-03-17 23:07 | External Medical Summary | Summary of Care ---
Author Name Unknown Organization [facility] Address [address] [place] [address] Phone [phone] Care Team Providers Care Visitor Services Specialist Name Role Phone Maikol SHEPHERD MD, Te Pérez Primary Care Provider [phone] Reason for Visit * Reason Onset Date Comments Referral 03/07/2023 Encounter Details Date Type Department Care Team (Late st Contact Info) Description 03/07/2023 Telephone Family Practice [facility] [address] [place] [address] Yessenia Lopez MD [address] [place] [address] Referral Allergies No known active allergiesdocumented as [...] Date Diagnosed Date Resolved Date Mixed dyslipidemia 07/03/200604/21/ 9 Overview: Per Lipid Taxonomy. documented as of this encounter (statuses as of 03/08/2023) Immunizations Name Administration Dates Next Due COVID-19 mRNA, LNP-s, No Pre serve, 2-Dose Series (Tucoola) 02/10/2021,07/14/2020,06/16/2020 COVID-19, LNP-s, No Preserve , Popeye-sucrose, Ages 12+ (Tucoola) 12/28/2021 Covid-19, Mrna, Lnp-s, Pf, B ivalent, 30 Mcg, IM, 12 yrs and above (Pfizer) 10/20/2022,03/17/2022 Pneumococcal Conjugate Vacci ne, 20-valent ([id number]) 10/20/2021 SEASONAL INFLUENZA, PF, 6 M & [...] Nurse Navigator General Surgery and Breast Clinic [facility] * Telephone Encounter - Karrie Childs - 03/07/2023 6:14 PM EDT Request Summary [[id number]] Procedure: SURGERY REFERRAL OP Status: Needs Scheduling (Yzue-zk-Vqmgfgn Pending) Requested appt date: Authorizing: Yessenia Lopez MD in [facility] Referral: [id number] (Authorized) Priority: Within 3 days (urgent) Diagnosis: Mass of buttock [R22.2] Order Specific Questions Referral Priority Within 3 days (urgent) Where should this appointment be scheduled? [facility] What condition is the patient being seen [...] to please call his to schedule apt [phone] documented in this encounter Plan of Treatment Upcoming Encounters Date Type Department Care Team (Late st Contact Info) Description 05/22/2023 9:00 AM EST Office Visit Family [address] [place], [place] [address] Te Lassiter III, MD [address] [place] [address] [place] [address] Health Maintenance Due Date Last Done Comments [...] this encounter Medical Devices Implanted Type Area Station Mechanic Apprentice Device Identifier Shelf Expiration Date Model / Serial / Lot Envista Intraocular Lens Implanted:Qty: 1 on 11/18/2021 by Noble Rivera MD at OR [facility] Right: Eye BAUSCH & LOMB 10/05/2022 [id number] / [id number] / [id number] Adatosil 5000 Oil Es 5000 S - [id number] - [id number] Implanted:Qty: 1 on 01/18/2023 by Quentin Caldera MD at OR [facility] Right: Eye BAUSCH & LOMB : SURGICAL 05/07/2025 ES 5000 S / [id number] / [id number] documented as of this encounter Advance Directives [...] Discussed due to patient's condition Care Teams Visitor Services Specialist Relationship Specialty Start Date End Date Te Lassiter III, MD [address] [facility] [place] [address] PCP - General 09/06/02 documented as of this encounter
--- OUTSIDE RECORDS SUMMARY | 2023-03-17 23:08 | External Medical Summary | Summary of Care ---
Author Name Unknown Organization [facility] Address [address] [facility] [place] [address] Phone [phone] Care Team Providers Care Inspector Heating And Refrigeration Name Role Phone Maikol SHEPHERD MD, Te Pérez Primary Care Provider [phone] Reason for Visit * Reason Comments Post-Op 1 week return; pt meyer s no complaints since ALEC Encounter Details Date Type Department Care Team Description 02/16/2023 Office Visit Ophthalmology, [facility] [address] [place] [address] Kendall Fernandez, DO [address] [place] [address] Right retinal detachment* Allergies No known active allergiesdocumented as of this encounter (statuses as of 02/16/2023) Medications Medication Sig Dispensed Refills Start Date [...] THE MORNING 90 Tablet 3 12/01/2022 Active Xdldeqmi-Dsayydgcz-N exameth 3.5-81950-0.1 Ophthalmic Ointment (Maxitrol) Instill into the right eye 4 times a day. 3.5 g 3 12/13/2022 Active documented as of this encounter (statuses as of 02/16/2023) Active Problems Problem Noted Date Right retinal [...] as of this encounter (statuses as of 02/16/2023) Resolved Problems Problem Noted Date Resolved Date Mixed dyslipidemia 07/03/2006 04/21/2009 Overview: Per Lipid Taxonomy. documented as of this encounter (statuses as of 02/16/2023) Immunizations Name Administration Dates Next Due COVID-19 mRNA, LNP-s, No Pre serve, 2-Dose Series (Trendzo) 02/10/2021,07/14/2020,06/16/2020 COVID-19, LNP-s, No Preserve , Popeye-sucrose, Ages 12+ (Trendzo) 12/28/2021 Covid-19, Mrna, Lnp-s, Pf, B ivalent, 30 Mcg, IM, 12 yrs and above (Pfizer) 10/20/2022,03/17/2022 Pneumococcal Conjugate Vacci ne, 20-valent ([id number]) 10/20/2021 SEASONAL INFLUENZA, PF, 6 M & [...] as of this encounter Progress Notes * DO Christel Liu 02/16/2023 8:30 AM EDT 02/16/2023 Nursing Notes: Beverly Terrell, MED ASSIST 02/16/23 0850 Signed Luisdominique Whittington is a 68 year old year old male who presents for retinal detachment OD. Last Office Visit: 02/09/2023 (in office), Visit date not found (telemedicine) Patient currently states no change in vision. Are you diabetic? No Do you drive? yes OCT image(s) of right eye acquired and filed/scanned into chart. Nursing notes reviewed. Base Eye Exam Visual Acuity (Snellen - Linear) Right Left Dist sc 20/300 +2 20/40 -1 Dist ph sc 20/150 NI Tonometry (Tonopen, 8:50 AM) Right Left Pressure 8 14 Pupils Pupils Right PERRL Left PERRL Visual Chavez (Counting fingers) Right Left Full Full Extraocular Movement Right Left Full, Ortho Full, Ortho Neuro/Psych Oriented x3: Yes Mood/Affect: Normal Dilation Both eyes: 0.5% Proparacaine @ 8:47 AM Dilation #2 Right eye: 1.0% Mydriacyl, 2.5% Phenylephrine @ 8:49 AM Dilation Comments Patient cautioned that effects [...] laser. OCT Interpretation: OD: no erm, inferior srf--improved OS: n/a Assessment/Plan: 1. 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 Epiretinal membrane (ERM) of right eye S/p MP FOLLOW UP: 1 weeks as scheduled w/ Dr. Werner Fernandez DO CC: Dr. Caldera documented in this encounter Nursing Notes * TIFFANIE Tenorio - 02/16/2023 8:42 AM EDT Luis Whittington is a 68 year old year old male who presents for retinal detachment OD. Last Office Visit: 02/09/2023 (in office), Visit date not found (telemedicine) Patient currently states no change in vision. Are you diabetic? No Do you drive? yes OCT image(s) of right eye acquired and filed/scanned into chart. documented in this encounter Plan of Treatment Upcoming Encounters Date Type Specialty Care Team Description 02/24/2023 Office Visit Ophthalmology Quentin Caldera MD [address] [address] [place] [address] 05/22/2023 Office Visit Family Medicine [place] IIITe MD [address] [place] [address] Scheduled Orders Name Type Priority Associated Diagnoses Orde r Schedule RETINA SCAN DIAGNOSTIC IMAGE, POSTERIOR Procedures Routine Right retinal detachment Ordered: 02/16/2023 Health Maintenance Due Date Last Done Comments [...] Ratio 11/18/2025 11/18/2022 Lipid Panel 11/13/2027 11/12/2022, 0611/2020, 04/16/2019, Additional history exists DTaP,Tdap,and Td Vaccines [...] this encounter Medical Devices Implanted Type Area Registered Public Surveyor Device Identifier Shelf Expiration Date Model / Serial / Lot Envista Intraocular Lens Implanted:Qty: 1 on 11/18/2021 by Noble Rivera MD at OR [facility] Right: Eye BAUSCH & LOMB 10/05/2022 [id number] / [id number] / [id number] Adatosil 5000 Oil Es 5000 S - [id number] - [id number] Implanted:Qty: 1 on 01/18/2023 by Quentin Caldera MD at OR [facility] Right: Eye BAUSCH & LOMB : SURGICAL 05/07/2025 ES 5000 S / [id number] / [id number] documented as of this encounter Visit Diagnoses [...] Discussed due to patient's condition Care Teams Inspector Heating And Refrigeration Relationship Specialty Start Date End Date Te Lassiter III, MD [address] [facility] [place] [address] PCP - General 09/06/02 documented as of this encounter
--- OUTSIDE RECORDS SUMMARY | 2023-03-17 23:08 | External Medical Summary | Summary of Care ---
Author Name Unknown Organization [facility] Address [address] [facility] [place] [address] Phone [phone] Care Team Providers Care Plater Supervisor Name Role Phone Maikol SHEPHERD MD, Te Pérez Primary Care Provider [phone] Reason for Visit * Reason Comments Follow Up 1-[address] ates "Vision is better, OD is little cloudy" Encounter Details Date Type Department Care Team Description 12/27/2022 Office Visit Ophthalmology, [facility] [address] [facility] [place] [address] Quentin Caldera MD [address] [place] [address] Right retinal detachment* Allergies No known active allergiesdocumented as of this encounter (statuses as of 12/27/2022) Medications Medication Sig Dispensed Refills Start Date [...] THE MORNING 90 Tablet 3 12/01/2022 Active Idalwisi-Ynzgpolun-B exameth [id number] Ophthalmic Ointment (Maxitrol) Instill into the right eye 4 times a day. 3.5 g 3 12/13/2022 Active documented as of this encounter (statuses as of 12/27/2022) Active Problems Problem Noted Date Right retinal [...] as of this encounter (statuses as of 12/27/2022) Resolved Problems Problem Noted Date Resolved Date Mixed dyslipidemia 07/03/2006 04/21/2009 Overview: Per Lipid Taxonomy. documented as of this encounter (statuses as of 12/27/2022) Immunizations Name Administration Dates Next Due COVID-19 mRNA, LNP-s, No Pre serve, 2-Dose Series (Handpressions) 02/10/2021,07/14/2020,06/16/2020 COVID-19, LNP-s, No Preserve , Popeye-sucrose, Ages 12+ (Pfizer) 12/28/2021 Covid-19, Mrna, Lnp-s, Pf, B ivalent, 30 Mcg, IM, 12 yrs and above (Pfizer) 10/20/2022,03/17/2022 Pneumococcal Conjugate Vacci ne, 20-valent ([id number]) 10/20/2021 Seasonal Influenza, PF, 6 mo ns & Above, IM , (Flulaval) 02/27/2020,04/17/2019,04/17/2018 Seasonal Influenza, Quadriva lent, No Preserve, [...] on file documented as of this encounter Patient Instructions * Patient Instructions* Quenitn Caldera MD - 12/27/2022 12:33 PM EDT Prednisolone: (white or pink cap) 1 drop 4 x a day documented in this encounter Progress Notes * Quentin Caldera MD - 12/27/2022 12:27 PM EDT 12/27/2022 Nursing Notes: LEBRON Boyle 12/27/22 1211 Sign at exiting of workspace Luis Whittington is a 67 year old year old male who presents for 1-2 month DFE. Last Office Visit: 12/16/2022 (in office), Visit date not found (telemedicine) Patient currently states "Vision is better OD is cloudy" Are you diabetic? No Do you drive? yes OCT image(s) of right eye acquired and filed/scanned into chart. Nursing notes reviewed. Base Eye Exam Visual Acuity (Snellen - Linear) Right Left Dist sc 20/200 20/70 -1 Dist ph sc 20/80 20/40 Tonometry (Tonopen, 12:14 PM) Right Left Pressure 17 13 Pupils Light Shape React APD Right 6 Round dilated Left 4 Round Brisk None Visual Chavez (Counting fingers) Right Left Full Full Neuro/Psych Oriented x3: Yes Mood/Affect: Normal Dilation Right eye: 2.5% Phenylephrine, 1.0% Mydriacyl @ 12:14 PM Dilation #2 Both eyes: 0.5% Proparacaine @ 12:15 PM Slit Lamp and Fundus Exam External Exam Right Left External Normal Normal Slit Lamp Exam Right Left Lids/Lashes Ecchymosis Normal Conjunctiva/Sclera EMMETT and vicryl x 3 White and quiet Cornea Clear Clear Anterior Chamber tr cell flare Deep and quiet Iris Round and reactive Round and reactive Lens Posterior chamber intraocular lens 2+ Nuclear sclerosis Fundus Exam Right Left Vitreous 1000 CS silicone oil fill Disc Normal C/D Ratio 0.4 Macula s/p Peel Vessels Normal Periphery laser 360, tear at 1 and 530, retinotomy at 3 Fundus OD attached under oil Assessment/Plan: 1. Epiretinal membrane (ERM) of right eye S/p MP 2. Right retinal detachment - Surgery date: 12/12/22 - Surgery: Right eye 25 G PPV/EL/1000 CS SO (tear at 1 and 5:30) - IOP wnl; no infection; retina all flat Drops: Pred forte 1 drop 4x/day until bottle is done - Positioning: none - No heavy lifting/pushing/pulling/bending below waist - XS Tylenol as directed and needed for discomfort - Patient is to f/u immediately if he develops worsening redness, eye pain, decrease in vision, nausea/vomiting, or discharge from eye, as these could be signs of an infection or increased pressure. FOLLOW UP: Follow Up: Return in about 17 days (around 01/13/2023) for DFE, Fundus Photos, OD. | For: DFE, FundusPhotos, OD Quentin Caldera MD 12/27/2022 documented in this encounter Nursing Notes * LEBRON Boyle - 12/27/2022 12:10 PM EDT Luis Whittington is a 67 year old year old male who presents for 1-2 month DFE. Last Office Visit: 12/16/2022 (in office), Visit date not found (telemedicine) Patient currently states "Vision is better OD is cloudy" Are you diabetic? No Do you drive? yes OCT image(s) of right eye acquired and filed/scanned into chart. documented in this encounter Plan of Treatment Upcoming Encounters Date Type Specialty Care Team Description 01/13/2023 Office Visit Ophthalmology Quentin Caldera MD [address] [place] [address] 05/22/2023 Office Visit Family Medicine Maikol III, Te Pérez MD [address] [facility] [place] [address] Health Maintenance Due Date Last Done Comments Cologuard 01/15/2001 Fecal Occult Blood Test 01/15/2001 Sigmoidoscopy 01/15/2001 Influenza Vaccine (FLU shot) (#1) 2023 02/27/2020, 04/17/2019, 04/17/2018, Additional history exists Depression Screening, Annual for Pts 12 and Over 11/12/2023 11/11/2022 GFR 11/13/2023 11/12/2022, 04/, 10/12/2020, Additional history exists HbA1c 11/13/2023 11/12/2022, 04/2 , 04/16/2019, Additional history exists Colonoscopy 07/14/2025 07/15/2015, 0 09/2009, 09/09/2008 Colorectal Cancer Screening 07/14/2025 Albumin/Creatinine Ratio 11/18/2025 11/18/2022 Lipid Panel 11/13/2027 11/12/2022, 11/2020, 04/16/2019, Additional history exists DTaP,Tdap,and Td Vaccines (3 - Td or Tdap) 10/23/2028 10/23/2018, 08/12/2008 Zoster Vaccines Completed 04/17/2019, 10/06, 08/06/2014 Pneumococcal Vaccine: 65+ Years Completed 10/20/2021 COVID-19 Vaccine Completed 10/20/2022, 02/2022, 12/28/2021, Additional history exists GARDASIL-HPV IMMUNIZATION SERIES Aged Out No longer eligible based on patient's age to complete this topic Hepatitis B Aged Out No longer eligi ble based on patient's age to complete this topic MENINGOCOCCAL (MENACTRA/MENVEO) Aged Out No longer eligible based on patient's age to complete this topic documented as of this encounter Medical Devices Implanted Type Area Manager Art Device Identifier Shelf Expiration Date Model / Serial / Lot Envista Intraocular Lens Implanted:Qty: 1 on 11/18/2021 by Noble Rivera MD at OR [facility] Right: Eye [employer] 10/05/2022 [id number] / [id number] / [id number] Oil Silicone 1000 8.5ml - [id number] Implanted:Qty: 1 on 12/12/2022 by Quentin Caldera MD at OR [facility] Right: Eye [employer] 01/06/2024 [id number] / / [id number] documented as of this encounter Visit Diagnoses [...] Discussed due to patient's condition Care Teams Plater Supervisor Relationship Specialty Start Date End Date Maikolhelen SHEPHERD, Te Pérez MD [address] [place] [address] PCP - General 09/06/02 documented as of this encounter
--- OUTSIDE RECORDS SUMMARY | 2023-03-17 23:08 | External Medical Summary | Summary of Care ---
Author Name Unknown Organization [facility] Address [address] [facility] [place] [address] Phone [phone] Care Team Providers Care Clock Mechanic Name Role Phone Maikol SHEPHERD MD, Te Pérez Primary Care Provider [phone] Reason for Visit * Auth/Cert Specialty Diagnoses / Procedures Referred By Enriqueta vincent Referred To Contact Diagnoses Right retinal detachment Right retinal detachment [H33.21] Procedures REPAIR DETACHED RETINA, VITRECTOMY RIGHT REPAIR RETINAL DETACHMENT WITH VITRECTOMY Referral ID Status Reason Start Date Expiration Date Visits Re quested Visits Authorized [id number] Encounter Details Date Type Department Care Team Description 01/18/2023 Hospital Encounter OR [facility], Operating Room, [facility] 3rd Floor [address] [place] [address] Quentin Caldera MD [address] [facility] [address] [place] [address] Allergies No known active allergiesdocumented as of this encounter (statuses as of 01/19/2023) Medications Medication Sig Dispensed Refills Start Date [...] THE MORNING 90 Tablet 3 12/01/2022 Active Pbdpnkpo-Zfevhxezb-B exameth [id number] Ophthalmic Ointment (Maxitrol) Instill into the right eye 4 times a day. 3.5 g 3 12/13/2022 Active documented as of this encounter (statuses as of 01/19/2023) Active Problems Problem Noted Date Right retinal [...] as of this encounter (statuses as of 01/19/2023) Resolved Problems Problem Noted Date Resolved Date Mixed dyslipidemia 07/03/2006 04/21/2009 Overview: Per Lipid Taxonomy. documented as of this encounter (statuses as of 01/19/2023) Immunizations Name Administration Dates Next Due COVID-19 mRNA, LNP-s, No Pre serve, 2-Dose Series (Ruby Ribbon) 02/10/2021,07/14/2020,06/16/2020 COVID-19, LNP-s, No Preserve , Popeye-sucrose, Ages 12+ (Pfizer) 12/28/2021 Covid-19, Mrna, Lnp-s, Pf, B ivalent, 30 Mcg, IM, 12 yrs and above (Pfizer) 10/20/2022,03/17/2022 Pneumococcal Conjugate Vacci ne, 20-valent ([id number]) 10/20/2021 Seasonal Influenza, PF, 6 mo ns [...] Sign Reading Time Taken Comments Blood Pressure 132/67 01/18/2023 4:15 PM EDT Pulse 80 01/18/2023 4:15 PM EDT Temperature 36 C (96.8 F) 01/18/2023 3:35 PM EDT Respiratory Rate 16 01/18/2023 4:15 PM EDT Oxygen Saturation 98% 01/18/2023 4:15 PM EDT Inhaled Oxygen Concentration - - Weight - - Height - - Body Mass Index - - documented in this encounter Discharge Instructions * Discharge Instr - AVS* Quentin Caldera MD - 01/18/2023 3:31 PM EDT Please contact your physician at [phone] with any concerns or questions. After 5:00 p.m. or onthe weekend, call the [facility] Emergency Room at and ask for the ship joiner television anchor.Scheduling Services is available daily between the hours of 8:00 a.m. and 9:00 p.m. by calling . Your attending physician at the time of your discharge was: Quentin Caldera MD [address] [facility] [address] [place] [address] The information below provides you with the instructions and the list of medications you need to betaking following discharge after surgery. If you have any questions, please ask before leaving. Please carry this letter with you when you see your doctor in the clinic. If you have questions, you can reach us at the number above. Diet: Normal diet Activity: No strenuous activity for 1 weeks Driving: No Driving. Follow Up - Return appointment(s): [address] [facility] with Dr. Caldera Special Instructions: Face down 10 minutes an hour and otherwise on your right side. HOME INSTRUCTIONS AFTER RETINAL OR VITREOUS SURGERY EYEDROPS are for healing and infection prevention. The drops will be started the day after surgery AFTER your post operative visit and the patch is removed in the office. Do Not Remove The Patch Prior To Being Seen In The Office. 8 am (Breakfast) 12 noon (Lunch) 6 pm (Supper) 10 pm (Bedtime) Ofloxacin(DIAZ) X X X X Wait at least 5 minutes between putting the drops in so you do not rinse one out with the other. Prednisolone (PINK/WHITE) X (SHAKE) X (SHAKE) X (SHAKE) X (SHAKE) Atropine (red top) X X To instill eye drops, tilt head back, gently pull lower lid down and look up. Do not let the bottletip touch your eyelids. Only one drop is needed. To instill ointment, keep head level gently pull down the lower eyelid and apply a small strip to the inside of the lower lid (about the size of a gain of rice). An air bubble was placed in the eye to help with closure of the incisions. You will see this as a black ball in the lower part of the vision. 1. Leave the eye patch in place. This will be removed in the office at your first post operative visit the day after surgery. DO NOT RUB OR PUT PRESSURE ON THE EYE for 4 weeks after surgery. Keep theeyelids and lashes clean with a warm, moist washcloth. 2. You may watch TV, read, and perform routine activities,and stoop (unless the head positioning requirements instruct otherwise). You may eat your regular diet and resume all your previous medications unless otherwise instructed. 3. NO heavy lifting (over 15 lbs), or straining for two weeks. 4. NO exercise until approved by Dr. Caldera. It is OK to walk in most cases. 5. DO NOT go underwater for 3 weeks after surgery, e.g. no swimming or hot-tubs. 6. It is OK to shower, wash your face, shave, shampoo your hair the day AFTER surgery. Just keep your eyes closed as you normally would. 7. It is normal to have moderate soreness or irritation in the surgical eye over the next couple ofweeks. You may take two tablets of Tylenol or Advil every 4 - 6 hours as needed for relief. If painbecomes severe, call the office. 8. NO eye make-up for 2 weeks after surgery. 9. DO NOT make any eye drop changes to your other eye. 10. suggests that all patients remain in the area for a minimum of the 4 weeks following surgery if planning travel within the [place]. Patients traveling internationally should wait 2 months. Note: You can not fly in an airplane if you have a gas bubble in your eye. This could cause permanent blindness due to expansion of the gas. Driving up a steep mountain may cause the eye to ache until the pressure equalizes. If the eye, cheek or brow ache persists, call the office. 11. Discuss return to work with Dr. Caldera. Each situation is different based on the surgery andtype of occupation. 12. You can expect the following after surgery during the first 4-6 weeks. Itchiness/scratchiness around the eye. Redness in the white of the eye. Double vision/ Fluctuation in vision. Droopiness of the eyelid. 13. Light flashes or other visual stimuli are common during the postoperative period. Do not get alarmed. 13. Your vision should gradually improve in days and weeks after surgery. If your vision is gettingworse (not better), or if there is sudden loss of vision, or if your eye is warm to the touch with redness and discharge, or you are having increasing pain, CALL US IMMEDIATELY. IF YOU HAVE ANY PROBLEMS, QUESTIONS OR CONCERNS, DO NOT HESITATE TO CALL US AT [phone] AT ANY TIME After 5:00 p.m. or on the weekend, call the [facility] Emergency Room at and ask for the ship joiner television anchor. documented in this encounter Progress Notes * Quentin Caldera MD - 01/18/2023 3:31 PM EDT Discharge Summary Patient Active Problem List Diagnosis Code Family history of other cardiovascular diseases Z82.49 Abdominal or pelvic swelling, mass, or lump, other specified site R19.09 Dyslipidemia, goal LDL below 130 E78.5 HTN, goal below 140/90 I10 Mild obstructive sleep apnea G47.33 Dysphagia R13.10 Impacted cerumen of left ear H61.22 Prediabetes R73.03 Epiretinal membrane (ERM) of right eye H35.371 Right retinal detachment H33.21 Surgery: right eye retinal detachment repair with scleral buckle and PPV Pt examined and medically cleared for discharge Quentin Caldera MD 01/18/2023 3:31 PM documented in this encounter H&P Notes * Quentin Caldera MD - 01/18/2023 1:28 PM EDT HISTORY & PHYSICAL INTERVAL NOTE [facility] [address] [facility] [address] History and Physical Update: Name: Luis Whittington Location: OR [facility]/OR Date: 01/18/2023 Time: 1:28 PM DATE OF HISTORY AND PHYSICAL: 01/18/23 BP: 142 mmHg/77 mmHg (01/18/23 1230) Pulse: 71 (01/18/23 1230) Temp: 36.78 C (01/18/23 1230) Resp: 13 (01/18/23 1230) SpO2: 98 % (01/18/23 1230) I have reviewed the H&P previously performed and examined the patient today. There are no new findings noted. right eye today * Quentin Caldera MD - 01/18/2023 1:28 PM EDT 01/18/2023 Luis Whittington is a 67 year old male. Chief Complaint Patient presents with Physical-Exam Pt stated that he is here for a physical exam HPI: Preoperative consultation from planned right vitrectomy and scleral buckle for RD PMH: Patient Active Problem List Diagnosis Code Family history of other cardiovascular diseases Z82.49 Abdominal or pelvic swelling, mass, or lump, other specified site R19.09 Dyslipidemia, goal LDL below 130 E78.5 HTN, goal below 140/90 I10 Mild obstructive sleep apnea G47.33 Dysphagia R13.10 Impacted cerumen of left ear H61.22 Prediabetes R73.03 Current Outpatient Medications Medication Sig Dispense Refill PARoxetine HCl 40 MG Oral Tablet (pAXil) Take by mouth 1 Tablet in the morning. 90 Tablet 3 CPAP every night at bedtime . Lisinopril-hydroCHLOROthiazide 20-25 MG Oral Tablet TAKE 1 TABLET BY MOUTH EVERY DAY 90 Tablet 3 Lisinopril 20 MG Oral Tablet (Prinivil) Take 1 Tablet by mouth in the morning. 90 Tablet 3 metFORMIN HCl ER 500 MG Oral Tablet Extended Release 24 Hour (Glucophage XR) TAKE 3 TABLETS BY MOUTH EVERY DAY 270 Tablet 2 Atorvastatin Calcium 20 MG Oral Tablet (Lipitor) Take 1 Tablet by mouth in the morning. 90 Tablet 1 No current facility-administered medications for this visit. Review of patient's allergies indicates: No Known Allergies Past Medical History: Diagnosis Date Abdominal or pelvic swelling, mass, or lump, other specified site 09/09/08 lump under right side of intestine-surgery recommended Acid reflux HTN, goal below 140/90 Hypertension, benign Mild obstructive sleep apnea 12/30/2012 12/16/12 PSG -- AHI 14.4 Mixed dyslipidemia 07/03/2006 Past Surgical History: Procedure Laterality Date COLONOSCOPY W/ BIOPSY (RECTUM) 09/09/08 done submucosal mass in the appendix path pending COLONOSCOPY W/ SUBMUCOUS INJ 09/09/08 done submuosal mass in the appendix path pending COLONOSCOPY, DIAGNOSTIC (RECTUM) 09/09/09 submucosal mass noted in appendix COLONOSCOPY, DIAGNOSTIC (RECTUM) 07/15/2015 submucosal mass - appendicieal orifice/[facility] EGD, FLEXIBLE, DIAGNOSTIC 05/26/11 wnl MISCELLANEOUS ORDER ([facility] ONLY) ACT 112 SIGNED, Dr. Fernandez (12-06-2018) REMOVAL OF APPENDIX REMOVE CATARACT, INSERT LENS PROSTH Right 11/18/2021 right EXTRACAPSULAR CATARACT REMOVAL WITH INTRAOCULAR LENS performed by Noble Rivera MD at OR [facility] REPAIR INITIAL INGUINAL HERNIA REDUCIBLE AGE 5 OR MORE Objective: The patient is a 67 year old male BP 136/72 | Pulse 88 | Temp 36.6 C (97.9 F) | Ht 1.803 m (5' 10.98") | Wt 104.9 kg (231 lb 3.2 oz) | SpO2 96% | BMI 32.26 kg/m | BSA 2.29 m General: alert, healthy and no distress Eye Exam: PERRLA, extraocular movements intact, conjunctiva are pink and non- injected, sclera clear Ears: External ears normal, Canals clear, TM's Normal Oropharynx: no exudate, no erythema, lips, buccal mucosa, and tongue normal and mucous membranes are moist Neck: supple, no adenopathy, no bruits, thyroid normal size, non-tender, without nodularity Heart: regular rate & rhythm, no murmur and no gallops Lungs: lungs clear to auscultation, no rhonchi rales rubs wheezes Pulses: carotid=2/4 w/o bruits, posterior tibial=2/4 Abdomen: abdomen soft, non-tender, normal bowel sounds and no masses or organomegaly Extremities: no edema, no clubbing, no cyanosis Neuro Exam: alert & oriented x 3 with fluent speech, reflexes normal and symmetric Exam (Male): no abnormalities of scrotal contents, no hernia detected ASSESSMENT: I10 HTN, goal below 140/90 (primary encounter diagnosis) E78.5 Dyslipidemia, goal LDL below 130 R73.03 Prediabetes Z00.00 Routine medical exam Z12.5 Screening for prostate cancer PLAN: Patient acceptable risk for planned procedure Quentin Caldera MD documented in this encounter OR Notes * OR Surgeon - Quentin Caldera MD - 01/18/2023 1:43 PM EDT OPERATIVE RECORD Name: Luis Whittington Date: 01/18/2023 Time: 1:44 PM Location: OR [facility] Service: Ophthalmology PREOPERATIVE DIAGNOSES: Right eye 1. Recurrent retinal detachment POSTOPERATIVE DIAGNOSES: same NAME OF PROCEDURES: Right eye 1. Pars plana vitrectomy 2. retinal detachment repair 3. Scleral Buckling 4. Silicone oil removal 5. Silicone oil injection 5000 CS silicone oil injection 5. Subtenons injection of triamcinolone 0.5 (40mg/ml) Complications: None. Estimated Blood Loss: Under 5 cc DESCRIPTION OF PROCEDURE: The patient was identified in the preoperative holding area. The patient's Right eye was confirmed as the surgical eye. It was then marked and dilated. The surgical procedure was reviewed and all questions answered. The informed consent was confirmed to be located in the chart. The patient was taken to the operating room where under general sedation. The eye was prepped with double diluted 10% Betadine solution and thoroughly irrigated and dried. A sterile ophthalmic drape and speculum were placed in the eye. A 360 degree limbal peritomy was performed with relaxing incisions in the inferonasal and superotemporal quadrants. The tenon was dissected from the sclera using a blunt technique. Each of the rectusmuscles was then isolated using a muscle hook and a 2-0 silk suture passed behind the muscle to ermias reins. A #41 scleral buckle that had been soaked in bacitracin was then threaded behind the recti muscles beginning in the inferotemporal quadrant and leaving the free ends in the superonasal quadrant. Using a Schepens retractor, a horizontal mattress suture of 5-0 Mersilene suture was placed in three quadrants (inferonasally, inferotemporally, superotemporally) between the recti muscles with the anterior pass placed 1 mm posterior to the line of the insertion of the muscles. The sutures were tied down. The two ends were placed into a 72 sleeve and the buckle was tightened. A 5-0 Mersilene suture was used to tie down the buckle in the superonasal quadrant and the free edges of the buckle were trimmed down. Next a vitrectomy was performed. The 23-gauge system was used and trocars were used to make sclerotomies 3.5 - 4 mm posterior to the limbus inferotemporally, superotemporally and superonasally. The infusion line was inserted into the inferotemporal port and viewed through the pupil to ensure properpositioning in the vitreous cavity before being turned on. The 1000 CS silicone oil was removed. A complete core vitrectomy with peripheral shaving was performed, the vitreous was stained with triamcinolone. Complete peripheral retinal examination was performed with scleral indentation and revealed tear at5 All tears and any additional suspicious area was marked with endo-diathermy. The vitreous over the tear and over all other suspicious areas was meticulously removed. A fluid air exchange was performed with a silicone tip cannula through the tear to flatten the retina by removing the subretinal fluid. When the retina was flat,endolaser photocoagulation was then performed around the retinotomy, the breaks and 360 degrees on the buckle. The microscope was removed. The silk sutures were removed and 1000 CS Silicone oil was instilled into the eye. The trocars wereremoved and closed with 7-0 vicryl. A peribulbar block was given and a subtenons injection of 0.5 cc of triamcinolone was injected. The conjunctiva was rinsed with BSS and then re-approximated to the limbus and closed using buried knots with 7-0 vicryl suture. The eye was rinsed with betadine. The lid speculum was removed. Ophthalmic ointment, 2 patches and 1 shield were placed on the eye. The patient was taken to recovery in stable condition and was directed that face down positioning was necessary. Implant Name Type Inv. Item Serial No. Telecommunications Network Engineer Lot No. LRB No. Used Action SLEEVE COMP SCL SILICONE 72 - [id number] SLEEVE COMP SCL SILICONE 72 [employer] [id number] Right 1 Implanted STRAP 3.5MM 41 - [id number] STRAP 3.5MM 41 [employer] [id number] Right 1 Implanted OIL SILICONE 1000 8.5ML - [id number] OIL SILICONE 1000 8.5ML [employer] [id number] Right 1 Explanted ADATOSIL 5000 OIL ES 5000 S - [id number] - [id number] ADATOSIL 5000 OIL ES 5000 S [id number] [employer] : SURGICAL [id number] Right 1 Implanted Quentin Caldera MD 01/18/2023 1:44 PM Surgeon: Quentin Caldera MD Assistants: None Anesthesia: LMA with RBB Drains: none Estimated Blood Loss: <1 ml. IV Fluids: <500 ml. Urine Output: N/A Specimens/Disposition: None Apparent Intraoperative Complications: None Patient Condition: stable Disposition: Post Anesthesia Care Unit Attestation: I performed the procedure Quentin Caldera MD 01/18/2023 Cc: Professional reimbursement documented in this encounter Plan of Treatment Upcoming Encounters Date Type Specialty Care Team Description 01/19/2023 Office Visit Ophthalmology Kendall Fernandez DO [address] [place] [address] 01/24/2023 Office Visit Ophthalmology Quentin Caldera MD [address] [place] [address] 05/22/2023 Office Visit Family Medicine Victoria IIITe MD [address] [place] [address] Health Maintenance Due Date Last Done Comments Cologuard 01/15/2001 Fecal Occult Blood Test 01/15/2001 Sigmoidoscopy 01/15/2001 Influenza Vaccine (FLU shot) (#1) 2023 02/27/2020, 04/17/2019, 04/17/2018, Additional history exists Depression Screening 11/12/2023 11/11/2022 GFR 11/13/2023 11/12/2022, 08/07, 10/12/2020, Additional history exists HbA1c 11/13/2023 11/12/2022, 08/07, 04/16/2019, Additional history exists Colonoscopy 07/14/2025 07/15/2015, 09/2009, 09/09/2008 Colorectal Cancer Screening 07/14/2025 Albumin/Creatinine [...] this encounter Medical Devices Implanted Type Area Telecommunications Network Engineer Device Identifier Shelf Expiration Date Model / Serial / Lot Envista Intraocular Lens Implanted:Qty: 1 on 11/18/2021 by Noble Rivera MD at OR [facility] Right: Eye [employer] 10/05/2022 [id number] / [id number] / [id number] Adatosil 5000 Oil Es 5000 S - [id number] - [id number] Implanted:Qty: 1 on 01/18/2023 by Quentin Caldera MD at OR [facility] Right: Eye [employer] : SURGICAL 05/07/2025 ES 5000 S / [id number] / [id number] Explanted Type Area Telecommunications Network Engineer Device Identifier Shelf Expiration Date Model / Serial / Lot Oil Silicone 1000 8.5ml - [id number] Implanted:Qty: 1 on 12/12/2022 by Quentin Caldera MD at OR [facility] Explanted:Qty: 1 on 01/18/2023 by Quentin Caldera MD at OR [facility] Right: Eye [employer] 01/06/2024 [id number] / / [id number] documented as of this encounter Visit Diagnoses Diagnosis Right retinal detachment- Primary Unspecified retinal detachment documented in this encounter Administered Medications Inactive Administered Medications - up to 3 most recent administrations Medication Order MAR Action Action Date Dose Rate Site atropine sulfate 1 % ophthalmic solution 1 Drop 1 Drop, Right eye, Q5 MINUTES, First dose on Mon01/18/23 at 1300, Last dose on Mon01/18/23 at 1310, For 3 doses, Begin 90 min preop, Pre-Op Given 01/18/2023 1:16 PM EDT 1 Drop Given 01/18/2023 1:09 PM EDT 1 Drop Given 01/18/2023 1:04 PM EDT 1 Drop Ofloxacin (Ocuflox) 0.3 % ophthalmic solution 1 Drop 1 Drop, Right eye, Q5 MINUTES, First dose on Mon01/18/23 at 1300, Last dose on Mon01/18/23 at 1310, For 3 doses, PRE-OP: One drop to right eye every 5 minutes for 3 doses, Pre-Op Given 01/18/2023 1:1 6 PM EDT 1 Drop Given 01/18/2023 1:09 PM EDT 1 Drop Given 01/18/2023 1:04 PM EDT 1 Drop PHENYLephrine (Ak-Dilate) 2.5 % ophthalmic solution 1 Drop 1 Drop, Right eye, Q5 MINUTES, First dose on Mon01/18/23 at 1300, Last dose on Mon01/18/23 at 1310, For 3 doses, PRE-OP: 1 drop to right eye every 5 minutes for 3 doses, Pre-Op Given 01/18/2023 1:[address] op Given 01/18/2023 1:09 PM EDT 1 Drop Given 01/18/2023 1:04 PM EDT 1 Drop prednisoLONE Acetate (Pred Forte) 1 % ophthalmic suspension 1 Drop 1 Drop, Right eye, Q5 MINUTES, First dose on Mon01/18/23 at 1300, Last dose on Mon01/18/23 at 1310, For 3 doses, PRE-OP: One drop to right eye every 5 minutes for 3 doses., Pre-Op Given 01/18/2023 1:16 PM EDT 1 Drop Given 01/18/2023 1:09 PM EDT 1 Drop Given 01/18/2023 1:04 PM EDT 1 Drop proparacaine (Alcaine) 0.5 % ophthalmic solution 1 Drop 1 Drop, Right eye, ONCE, On Mon01/18/23 at 1300, For 1 dose, PRE-OP: 15 minutes prior to scheduled surgery time for 1 dose, Pre-Op Given 01/18/2023 1:02 PM EDT 1 Drop documented in this encounter Active and Recently Administered Medications Times are shown in EDT. Scheduled Medication Order 2023 01/17/2023 01/18/2023 atropine sulfate 1 % ophthalmic solution 1 Drop (COMPLETED) 1 Drop, Right eye, Q5 MINUTES, First dose on Mon01/18/23 at 1300, Last dose on Mon01/18/23 at 1310, For 3 doses, Begin 90 min preop, Pre-Op 1304 (Given - Provid er: Irving Alegre RN)1309 (Given - Provider: Irving Alegre RN)1316 (Given - Provider: Irving Alegre RN) Ofloxacin (Ocuflox) 0.3 % ophthalmic solution 1 Drop (COMPLETED) 1 Drop, Right eye, Q5 MINUTES, First dose on Mon01/18/23 at 1300, Last dose on Mon01/18/23 at 1310, For 3 doses, PRE-OP: One drop to right eye every 5 minutes for 3 doses, Pre-Op 1304 (Given - Provid er: Irving Alegre RN)1309 (Given - Provider: Irving Alegre RN)1316 (Given - Provider: Irving Alegre RN) PHENYLephrine (Ak-Dilate) 2.5 % ophthalmic solution 1 Drop (COMPLETED) 1 Drop, Right eye, Q5 MINUTES, First dose on Mon01/18/23 at 1300, Last dose on Mon01/18/23 at 1310, For 3 doses, PRE-OP: 1 drop to right eye every 5 minutes for 3 doses, Pre-Op 1304 (Given - Provid er: Irving Alegre RN)1309 (Given - Provider: Irving Alegre RN)1316 (Given - Provider: Irving Alegre RN) prednisoLONE Acetate (Pred Forte) 1 % ophthalmic suspension 1 Drop (COMPLETED) 1 Drop, Right eye, Q5 MINUTES, First dose on Mon01/18/23 at 1300, Last dose on Mon01/18/23 at 1310, For 3 doses, PRE-OP: One drop to right eye every 5 minutes for 3 doses., Pre-Op 1304 (Given - Provid er: Irving Alegre RN)1309 (Given - Provider: Irving Alegre RN)1316 (Given - Provider: Irving Alegre RN) proparacaine (Alcaine) 0.5 % ophthalmic solution 1 Drop (COMPLETED) 1 Drop, Right eye, ONCE, On Mon01/18/23 at 1300, For 1 dose, PRE-OP: 15 minutes prior to scheduled surgery time for 1 dose, Pre-Op 1302 (Given - Provid er: Irving Alegre RN) PRN Medication Order 2023 01/17/2023 01/18/2023 bupivacaine (PF) 4.5 mL, Hyaluronidase Human 1 Units, lidocaine 2 % 4.5 mL inj (CANCELED) ONCE PRN INTRA PROCEDURE, Starting on Mon01/18/23 at 1350, Until Mon01/18/23 at 1532, Intra-Op 1350 (Given - Provid er: Quentin Caldera MD) DUOVISC inj KIT (CANCELED) ONCE PRN INTRA PROCEDURE, Starting on Mon01/18/23 at 1400, Until Mon01/18/23 at 1532, Intra-Op 1400 (Given - Provid er: Quentin Caldera MD) EPINEPHrine 0.5 mg in balanced salt solution 500 mL inj (CANCELED) ONCE PRN INTRA PROCEDURE, Starting on Mon01/18/23 at 1400, Until Mon01/18/23 at 1532, Intra-Op 1400 (Given - Provid er: Quentin Caldera MD) Erythromycin ophthalmic ointment (CANCELED) ONCE PRN INTRA PROCEDURE, Starting on Mon01/18/23 at 1512, Until Mon01/18/23 at 1532, Intra-Op 1512 (Given - Provid er: Quentin Caldera MD) Triamcinolone Acetonide (Kenalog) 40 MG/ML inj (CANCELED) ONCE PRN INTRA PROCEDURE, Starting on Mon01/18/23 at 1513, Until Mon01/18/23 at 1532, Intra-Op 1513 (Given - Provid er: Quentin Caldera MD) documented in this encounter Advance Directives Latest [...] Discussed due to patient's condition Care Teams Clock Mechanic Relationship Specialty Start Date End Date Te Lassiter III, MD [address] [place] [address] [place] [address] PCP - General 09/06/02 documented as of this encounter
--- OUTSIDE RECORDS SUMMARY | 2023-03-17 23:08 | External Medical Summary | Summary of Care ---
Author Name Unknown Organization [facility] Address [address] [facility] [facility] [place] [address] Phone [phone] Care Team Providers Care Material Handling Technician Name Role Phone Maikol SHEPHERD MD, Te Pérez Primary Care Provider [phone] Reason for Visit * Reason Comments Follow Up Dfe fundus photos OD Encounter Details Date Type Department Care Team Description 01/13/2023 Office Visit Ophthalmology, [facility] [address] [facility] [place] [address] Quentin Caldera MD [address] [place] [address] Right retinal detachment* Allergies No known active allergiesdocumented as of this encounter (statuses as of 01/13/2023) Medications Medication Sig Dispensed Refills Start Date [...] THE MORNING 90 Tablet 3 12/01/2022 Active Ujqhvbsb-Zefzunyeg-C exameth 3.5-39305-0.1 Ophthalmic Ointment (Maxitrol) Instill into the right eye 4 times a day. 3.5 g 3 12/13/2022 Active documented as of this encounter (statuses as of 01/13/2023) Active Problems Problem Noted Date Right retinal [...] as of this encounter (statuses as of 01/13/2023) Resolved Problems Problem Noted Date Resolved Date Mixed dyslipidemia 07/03/2006 04/21/2009 Overview: Per Lipid Taxonomy. documented as of this encounter (statuses as of 01/13/2023) Immunizations Name Administration Dates Next Due COVID-19 mRNA, LNP-s, No Pre serve, 2-Dose Series (WiWide) 02/10/2021,07/14/2020,06/16/2020 COVID-19, LNP-s, No Preserve , Popeye-sucrose, Ages 12+ (WiWide) 12/28/2021 Covid-19, Mrna, Lnp-s, Pf, B ivalent, 30 Mcg, IM, 12 yrs and above (Pfizer) 10/20/2022,03/17/2022 Pneumococcal Conjugate Vacci ne, 20-valent ([id number]) 10/20/2021 Seasonal Influenza, PF, 6 mo ns [...] Progress Notes * Quentin Caldera MD - 01/13/2023 8:25 AM EDT 01/13/2023 Nursing Notes: Dilip Rueda RN 01/13/23 0811 Signed Luis T Nelsy is a 67 year old year old male who presents for s/p Retinal Detachment OD. Last Office Visit: 12/27/2022 (in office), Visit date not found (telemedicine) Patient currently states " its blurry " Are you diabetic? No Do you drive? yes OCT image(s) of right eye acquired and filed/scanned into chart. Nursing notes reviewed. Base Eye Exam Visual Acuity (Snellen - Linear) Right Left Dist sc 20/80 -2 20/60 +2 Dist ph sc 20/70 -1 20/50 -1 Tonometry (Tonopen, 8:09 AM) Right Left Pressure 13 14 Pupils Pupils Light Shape React APD Right PERRL 4 Round Slow None Left PERRL 3 Round Brisk None Visual Chavez (Counting fingers) Right Left Full Full Extraocular Movement Right Left Full Full Neuro/Psych Oriented x3: Yes Mood/Affect: Normal Dilation Both eyes: 0.5% Proparacaine @ 8:08 AM Dilation #2 Right eye: 1.0% Mydriacyl, 2.5% Phenylephrine @ 8:08 AM Dilation Comments Patient cautioned that effects of dilation may last 2-7 hours dependant upon individual reaction. It was discussed that driving while dilated is not recommended. Slit Lamp and Fundus Exam External Exam Right Left External Normal Normal Slit Lamp Exam Right Left Lids/Lashes Normal Normal Conjunctiva/Sclera White and quiet White and quiet Cornea Clear Clear Anterior Chamber Deep and quiet Deep and quiet Iris Round and reactive Round and reactive Lens Posterior chamber intraocular lens 2+ Nuclear sclerosis Fundus Exam Right Left Vitreous 1000 CS silicone oil fill Disc Normal C/D Ratio 0.4 Macula s/p Peel Vessels Normal Periphery laser 360, tear at 1 and 530, retinotomy at 3, hole open at 530 and inferior detachment Fundus OD inferior detachment OCT OD compact, s/p peel Assessment/Plan: 1. Epiretinal membrane (ERM) of right eye S/p MP 2. Right retinal detachment - Surgery date: 12/12/22 - Surgery: Right eye 25 G PPV/EL/1000 CS SO (tear at 1 and 5:30) - IOP wnl; no infection; retina now redetached Drops: Pred forte 1 drop 4x/day until bottle is done FOLLOW UP: Follow Up: Return for scheduel PPV. | For: scheduel PPV Quentin Caldera MD 01/13/2023 Surgical Planning: Diagnosis: ICD-10-CM 1. Right retinal detachment H33.21 Surgery: Right eye 41Band scleral buckle, 25 G PPV/EL/ silicone oil removal, FGE, replacement of silicone oil Anesthesia: General Special needs: H&P day of 72 sleeve/41 band Kenalog 5000 CS silicone oil 01/18/23 documented in this encounter Nursing Notes * Dilip Rueda RN - 01/13/2023 8:10 AM EDT Luis Whittington is a 67 year old year old male who presents for s/p Retinal Detachment OD. Last Office Visit: 12/27/2022 (in office), Visit date not found (telemedicine) Patient currently states " its blurry " Are you diabetic? No Do you drive? yes OCT image(s) of right eye acquired and filed/scanned into chart. documented in this encounter Plan of Treatment Upcoming Encounters Date Type Specialty Care Team Description 05/22/2023 Office Visit Family Medicine Maikol III, Te Pérez MD [address] [place] [address] Health Maintenance Due Date Last Done Comments Cologuard 01/15/2001 Fecal Occult Blood Test 01/15/2001 Sigmoidoscopy 01/15/2001 Influenza Vaccine (FLU shot) (#1) 2023 02/27/2020, 04/17/2019, 04/17/2018, Additional history exists Depression Screening 11/12/2023 11/11/2022 GFR 11/13/2023 11/12/2022, 042 , 10/12/2020, Additional history exists HbA1c 11/13/2023 [...] this encounter Medical Devices Implanted Type Area Vegetable Loader Machine Operator Device Identifier Shelf Expiration Date Model / Serial / Lot Envista Intraocular Lens Implanted:Qty: 1 on 11/18/2021 by Noble Rivera MD at OR [facility] Right: Eye [employer] 10/05/2022 [id number] / [id number] / [id number] Oil Silicone 1000 8.5ml - [id number] Implanted:Qty: 1 on 12/12/2022 by Quentin Caldera MD at OR [facility] Right: Eye [employer] 01/06/2024 [id number] / [id number] documented as of this [...] Discussed due to patient's condition Care Teams Material Handling Technician Relationship Specialty Start Date End Date Te Lassiter III, MD [address] [place] [address], [place] [address] PCP - General 09/06/02 documented as of this encounter
--- OUTSIDE RECORDS SUMMARY | 2023-03-17 23:08 | External Medical Summary | Summary of Care ---
Author Name Unknown Organization [facility] Address [address] [facility] [place] [address] Phone [phone] Care Team Providers Care Hoister Name Role Phone Maikol SHEPHERD MD, Te Pérez Primary Care Provider [phone] Reason for Visit * Reason Comments Follow Up Dfe fundus photos OD Encounter Details Date Type Department Care Team Description 01/13/2023 Office Visit Ophthalmology, [facility] [address] [facility] [place] [address] Quentin Caldera MD [address] [place] [address] Right retinal detachment* Allergies No known active [...] THE MORNING 90 Tablet 3 12/01/2022 Active Zweiriay-Vpiptgkrg-S exameth 3.5-85067-8.1 Ophthalmic Ointment (Maxitrol) Instill into the right [...] mRNA, LNP-s, No Pre serve, 2-Dose Series (Joinnus) 02/10/2021,07/14/2020,06/16/2020 COVID-19, LNP-s, No Preserve , Popeye-sucrose, Ages 12+ (Joinnus) 12/28/2021 Covid-19, Mrna, Lnp-s, Pf, B ivalent, 30 Mcg, IM, 12 yrs and above (Pfizer) 10/20/2022,03/17/2022 Pneumococcal Conjugate Vacci ne, 20-valent ([id number]) 10/20/2021 Seasonal Influenza, PF, 6 mo ns [...] Team Description 01/19/2023 Office Visit Ophthalmology Kendall Fernandez, [address] [place] [address] 01/24/2023 Office Visit Ophthalmology Quentin Caldera MD [address] [place] [address] 05/22/2023 Office Visit Family Medicine [place] IIITe MD [address] [facility] [place] [address] Health Maintenance Due Date Last Done Comments [...] this encounter Medical Devices Implanted Type Area Vice President Of Brand Management Device Identifier Shelf Expiration Date Model / Serial / Lot Envista Intraocular Lens Implanted:Qty: 1 on 11/18/2021 by Noble Rivera MD at OR [facility] Right: Eye [employer] 10/05/2022 [id number] / [id number] / [id number] Oil Silicone 1000 8.5ml - [id number] Implanted:Qty: 1 on 12/12/2022 by Quentin Caldera MD at OR [facility] Right: Eye [employer] 01/06/2024 [id number] / [id number] documented as of this [...] Discussed due to patient's condition Care Teams Hoister Relationship Specialty Start Date End Date Maikol SHEPHERD, Te Pérez MD [address] [place] [address] PCP - General 09/06/02 documented as of this encounter
--- OUTSIDE RECORDS SUMMARY | 2023-03-17 23:08 | External Medical Summary | Summary of Care ---
Author Name Unknown Organization [facility] Address [address] [facility] [place] [address] Phone [phone] Care Team Providers Care Termite Exterminator Name Role Phone Maikol SHEPHERD MD, Te Pérez Primary Care Provider [phone] Reason for Visit * Reason Comments Post-Op POD#1 s/p RD repair with vitrectomy OD - 12/12/22 * Auth/Cert Specialty Diagnoses / Procedures Referred By Enriqueta vincent Referred To Contact Diagnoses Total retinal detachment of right eye Total retinal detachment of right eye [H33.051] Procedures REPAIR DETACHED RETINA, VITRECTOMY RIGHT REPAIR RETINAL DETACHMENT WITH VITRECTOMY Referral ID Status Reason Start Date Expiration Date Visits Re quested Visits Authorized [id number] Encounter Details Date Type Department Care Team Description 12/13/2022 Office Visit Ophthalmology, [facility] [address] [facility] [address] [place] [address] Quentin Caldera MD [address] [facility] [address] [place] [address] Nurse Judi Ophthalmology [address] [facility] [place] [address] Right retinal detachment*; Epiretinal membrane (ERM) of right eye Allergies No known active allergiesdocumented as of this encounter (statuses as of 12/13/2022) Medications Medication Sig Dispensed Refills Start Date [...] THE MORNING 90 Tablet 3 12/01/2022 Active Dvzffrvd-Rkjdjioto-J exameth 3.5-88536-8.1 Ophthalmic Ointment (Maxitrol) Instill into the right eye 4 times a day. 3.5 g 3 12/13/2022 Active documented as of this encounter (statuses as of 12/13/2022) Active Problems Problem Noted Date Right retinal [...] as of this encounter (statuses as of 12/13/2022) Resolved Problems Problem Noted Date Resolved Date Mixed dyslipidemia 07/03/2006 04/21/2009 Overview: Per Lipid Taxonomy. documented as of this encounter (statuses as of 12/13/2022) Immunizations Name Administration Dates Next Due COVID-19 mRNA, LNP-s, No Pre serve, 2-Dose Series (Pfizer) 02/10/2021,07/14/2020,06/16/2020 COVID-19, LNP-s, No Preserve , Ppoeye-sucrose, Ages 12+ (Pfizer) 12/28/2021 Covid-19, Mrna, Lnp-s, Pf, B ivalent, 30 Mcg, IM, 12 yrs and above (Pfizer) 10/20/2022,03/17/2022 Pneumococcal Conjugate Vacci ne, 20-valent ([id number]) 10/20/2021 Seasonal Influenza, Quadriva lent, No Preserve, 6 Mons & Above, IM 02/27/2020,04/17/2019,04/17/2018 Seasonal Influenza, Quadriva lent, No Preserve, [...] Progress Notes * Quentin Caldera MD - 12/13/2022 10:42 AM EDT 12/13/2022 Nursing Notes: Kathy Cabrera LPN 12/13/22 1100 Signed Luis Emilia Whittington is a 67 year old male who presents for Chief Complaint Patient presents with Post-Op POD#1 s/p RD repair with vitrectomy OD - 12/12/22 Visit date not found (in office), Visit date not found (telemedicine) Has your medical history changed since your last office visit? No He currently states that he has no pain. Are you diabetic? NO. Are you being treated for macular degeneration? NO. Current Ophthalmic Medications: None Vision, IOP, confrontation chavez, motility, pupil check and dilation per physician protocol can befound on the Ophth exam. Nursing notes reviewed. Base Eye Exam Visual Acuity (Snellen - Linear) Right Left Dist sc 20/400 20/60 Dist ph sc 20/200 NI Tonometry (Tonopen, 11:00 AM) Right Left Pressure 23 20 Pupils Dark React APD Right 6 PhDil None Left 3 Brisk None Visual Chavez (Counting fingers) Right Left Full Restrictions Partial outer superior temporal deficiency Extraocular Movement Right Left Full Full Neuro/Psych Oriented x3: Yes Mood/Affect: Normal Dilation Both eyes: 0.5% Proparacaine @ 11:00 AM Slit Lamp and Fundus Exam External Exam [...] Left Vitreous 1000 CS silicone oil fill Posterior vitreous detachment Disc Normal Normal C/D Ratio 0.4 0.4 Macula s/p Peel Normal Vessels Normal Normal Periphery laser 360, tear at 1 and 530 Normal Assessment/Plan: 1. Epiretinal membrane (ERM) of right eye S/p MP 2. Right retinal detachment - Surgery date: 12/12/22 - Surgery: Right eye 25 G PPV/EL/1000 CS SO (tear at 1 and 5:30) - POD#1 - IOP wnl; no infection; retina all flat Drops: 1. Ocuflox 1 drop 4x/day for 7 total days 2. Pred forte 1 drop 4x/day x 1 week, then 3x/day for 1 week, then 2x/day for 1 week, then 1x/day for 1 week, then stop - Positioning: Face down or right side down - No heavy lifting/pushing/pulling/bending below waist - XS Tylenol as directed and needed for discomfort - Eye shield on while sleeping for 1 week - Patient is to f/u immediately if he develops worsening redness, eye pain, decrease in vision, nausea/vomiting, or discharge from eye, as these could be signs of an infection or increased pressure. FOLLOW UP: Follow Up: Return in about 3 days (around 12/16/2022) for DFE, OCT, OD 11AM. | For: DFE, OCT, OD 11AM Quentin Caldera MD 12/13/2022 documented in this encounter Nursing Notes * Kathy Cabrera LPN - 12/13/2022 10:43 AM EDT Luis Whittington is a 67 year old male who presents for Chief Complaint Patient presents with Post-Op POD#1 s/p RD repair with vitrectomy OD - 12/12/22 Visit date not found (in office), Visit date not found (telemedicine) Has your medical history changed since your last office visit? No He currently states that he has no pain. Are you diabetic? NO. Are you being treated for macular degeneration? NO. Current Ophthalmic Medications: None Vision, IOP, confrontation chavez, motility, pupil check and dilation per physician protocol can befound on the Ophth exam. documented in this encounter Plan of Treatment Upcoming Encounters Date Type Specialty Care Team Description 12/16/2022 Office Visit Ophthalmology Quentin Caldera MD [address] [place] [address] 12/27/2022 Office Visit Ophthalmology Quentin Caldera MD [address] [place] [address] 05/22/2023 Office Visit Family Medicine Churchill III, Te P[facility] [address] Health Maintenance Due Date Last Done Comments Cologuard 01/15/2001 Fecal Occult Blood Test 01/15/2001 Sigmoidoscopy 01/15/2001 Influenza Vaccine (FLU shot) (#1) 2023 02/27/2020, 04/17/2019, 04/17/2018, Additional history exists Depression Screening, Annual for Pts 12 and Over 11/12/2023 11/11/2022 GFR 11/13/2023 11/12/2022, 2 , [...] this encounter Medical Devices Implanted Type Area Director Digital Analytics Device Identifier Shelf Expiration Date Model / Serial / Lot Envista Intraocular Lens Implanted:Qty: 1 on 11/18/2021 by Noble Rivera MD at OR [facility] Right: Eye [employer] 10/05/2022 [id number] / [id number] / [id number] Oil Silicone 1000 8.5ml - [id number] Implanted:Qty: 1 on 12/12/2022 by Quentin Caldera MD at OR [facility] Right: Eye [employer] 01/06/2024 [id number] / / [id number] documented as of this [...] Discussed due to patient's condition Care Teams Termite Exterminator Relationship Specialty Start Date End Date Te Lassiter III, MD [address] [place] [address] PCP - General 09/06/02 documented as of this encounter"
--- OUTSIDE RECORDS SUMMARY | 2023-03-17 23:08 | External Medical Summary | Summary of Care ---
Author Name Unknown Organization [facility] Address [address] [facility] [place] [address] Phone [phone] Care Team Providers Care Barber Instructor Name Role Phone Maikol SHEPHERD MD, Te Pérez Primary Care Provider [phone] Reason for Visit * Reason Comments Follow Up Dfe fundus photos OD Encounter Details Date Type Department Care Team Description 01/13/2023 Office Visit Ophthalmology, [facility] [address] [facility] [place] [address] Quentin Caldera MD [address] [place] [address] Right retinal detachment* Allergies No known active [...] THE MORNING 90 Tablet 3 12/01/2022 Active Thlvwkyp-Ggplflwrk-T exameth 3.5-91292-7.1 Ophthalmic Ointment (Maxitrol) Instill into the right [...] mRNA, LNP-s, No Pre serve, 2-Dose Series ([employer]) 02/10/2021,07/14/2020,06/16/2020 COVID-19, LNP-s, No Preserve , Popeye-sucrose, Ages 12+ ([employer]) 12/28/2021 Covid-19, Mrna, Lnp-s, Pf, B ivalent, 30 Mcg, IM, 12 yrs and above (Pfizer) 10/20/2022,03/17/2022 Pneumococcal Conjugate Vacci ne, 20-valent ([id number]) 10/20/2021 Seasonal Influenza, PF, 6 mo ns [...] IOP wnl; no infection; retina now redetached - Looked fine 2 weeks ago, noticed vision changes a few days after. Did not call. Today with hole at 530 open. Would not wait too long for surgery, will schedule next week. Given the patient has evidence of proliferative vitreoretinopathy he is now at high risk of re-detachment and may require multiple surgical procedures. A vision threatening retinal detachment is present. We discussed the risks and benefits of the treatment options including pneumatic retinopexy, scleral buckle and vitrectomy. The surgical success rate is in the range of 80-90 percent. 10- 20% riskof failure to presence or development of proliferative vitreoretinopathy. The patient elects to proceed with SB/PPV. We have discussed the risks and benefits of surgery. The risks include but are not limited to infection (approximately one out of 2000), hemorrhage, retinal detachment, increased intraocular pressure, decreased vision or blindness with total loss of vision. Additional surgery or procedures may be required. Luis Whittington understands and wishes to proceed. Drops: Pred forte 1 drop 4x/day until [...] Kendall Fernandez, [address] [place] [address] 01/24/2023 Office Visit Ophthalmology Quentin Caldera MD [address] [place] [address] 05/22/2023 Office Visit Family Medicine Maikol III, Te Pérez MD [address] [facility] [place] [address] Health Maintenance Due Date Last Done Comments [...] this encounter Medical Devices Implanted Type Area Television Cable Installer Device Identifier Shelf Expiration Date Model / Serial / Lot Envista Intraocular Lens Implanted:Qty: 1 on 11/18/2021 by Noble Rivera MD at OR [facility] Right: Eye [employer] 10/05/2022 [id number] / [id number] / [id number] Oil Silicone 1000 8.5ml - [id number] Implanted:Qty: 1 on 12/12/2022 by Quentin Caldera MD at OR [facility] Right: Eye [employer] 01/06/2024 [id number] / / [id number] documented as of this [...] Discussed due to patient's condition Care Teams Barber Instructor Relationship Specialty Start Date End Date Te Lassiter III, MD [address] [place] [address], [place] [address] PCP - General 09/06/02 documented as of this encounter
--- OUTSIDE RECORDS SUMMARY | 2023-03-17 23:08 | External Medical Summary | Summary of Care ---
Author Name Unknown Organization [facility] Address [address] [facility] [place] [address] Phone [phone] Care Team Providers Care Rn Sexual Assault Name Role Phone Maiokl SHEPHERD MD, Te Pérez Primary Care Provider [phone] Reason for Visit * Reason Comments Post-Op 1 week post op ; 3rd procedure Encounter Details Date Type Department Care Team Description 01/24/2023 Office Visit Ophthalmology, [facility] [address] [facility] [place] [address] Quentin Caldera MD [address] [place] [address] Right retinal detachment* Allergies No known active [...] THE MORNING 90 Tablet 3 12/01/2022 Active Gzpffncs-Dyhpinbyo-O exameth 3.5-79555-9.1 Ophthalmic Ointment (Maxitrol) Instill into the right [...] mRNA, LNP-s, No Pre serve, 2-Dose Series (SponsorHub) 02/10/2021,07/14/2020,06/16/2020 COVID-19, LNP-s, No Preserve , Popeye-sucrose, Ages 12+ (Pfizer) 12/28/2021 Covid-19, Mrna, Lnp-s, Pf, B ivalent, 30 Mcg, IM, 12 yrs and above (Pfizer) 10/20/2022,03/17/2022 Pneumococcal Conjugate Vacci ne, 20-valent ([id number]) 10/20/2021 SEASONAL INFLUENZA, PF, 6 M & [...] this encounter Patient Instructions * Patient Instructions* Quentin Caldera MD - 01/24/2023 12:46 PM EDT Ocuflox: (elaine cap) 4 x a day until Atropine (redye hand) Stop Prednisolone (pink cap) 4 x a day until seen again documented in this encounter Progress Notes * Quentin Caldera MD - 01/24/2023 12:38 PM EDT 01/24/2023 Nursing Notes: Beverly Lynnterson, MED ASSIST 01/24/23 1208 Signed Luis Emilia Nelsy presents for p/o check. Patient's name preference, Luis Are you a diabetic? No Blood Glucose - N/a mg/dL Post operative 1 week procedure: repair RD OD Operative eye: RIGHT EYE Patient denies complaints Presents with no dressing Did you wear eye shield to bed, slept on unaffected side and avoid bending over and heavy lifting? Yes Phenylephrine Hydrochloride 2.5% and Tropicamide Ophthalmic Solution 1% inserted into Right eye 11:[address]? Not yet Patient advised not to drive while eye's are dilated or vision is blurred. Pt/Family verbalizes understanding. Nursing notes reviewed. Base Eye Exam Visual Acuity (Snellen - Linear) Right Left Dist sc 20/250 -1 20/50 +2 Dist ph sc 20/100 NI Tonometry (Tonopen, 12:07 PM) Right Left Pressure 20 14 Pupils Pupils Right PERRL Left PERRL Visual Chavez (Counting fingers) Right Left Full Full Extraocular Movement Right Left Full, Ortho Full, Ortho Neuro/Psych Oriented x3: Yes Mood/Affect: Normal Dilation Both eyes: 0.5% Proparacaine @ 12:05 PM Dilation #2 Right eye: 1.0% Mydriacyl, 2.5% Phenylephrine @ 12:07 PM Slit Lamp and Fundus Exam External Exam Right Left External Normal Normal Slit Lamp Exam Right Left Lids/Lashes Normal Normal Conjunctiva/Sclera EMMETT, vicryl sutures White and quiet Cornea Clear Clear Anterior Chamber Deep and quiet Deep and quiet Iris Round and reactive Round and reactive Lens Posterior chamber intraocular lens 2+ Nuclear sclerosis Fundus Exam Right Left Vitreous 5000 CS silicone oil fill Disc Normal C/D Ratio 0.4 Macula s/p Peel Vessels Normal Periphery laser 360, inferior heavy laser, good buckle imbrication. Assessment/Plan: 1. Epiretinal membrane (ERM) of right eye S/p MP 2. Right retinal detachment - Surgery date: 12/12/22 - Surgery: Right eye 25 G PPV/EL/1000 CS SO (tear at 1 and 5:30) #3 surgery 01/18/23 . S/P 23G PPV/SB/5000cs oil for recurrent RD OD -surgery date: 01/18/2023-[facility] -POD#1 -IOP wnl; no infection; retina all flat Drops: Ocuflox: (elaine cap) 4 x a day until Atropine (redye hand) Stop Prednisolone (pink cap) 4 x a day until seen again Maxitrol ankit PRN irritation -Face down 10 minutes an hour and sleep on right side until the end of the week. - IOP wnl; no infection; retina all flat - No heavy lifting/pushing/pulling/bending below waist - XS Tylenol as directed and needed for discomfort - Patient is to f/u immediately if he develops worsening redness, eye pain, decrease in vision, nausea/vomiting, or discharge from eye, as these could be signs of an infection or increased pressure. FOLLOW UP: Follow Up: Return for [address] Fernandez, and 1 month with me HARVEY OD. | For: [address] Fernandez, and 1 month with me HARVEY OD Quentin Caldera MD 01/24/2023 documented in this encounter Nursing Notes * TIFFANIE Tenorio - 01/24/2023 11:59 AM EDT Luis Whittington presents for p/o check. Patient's name preference, Luis Are you a diabetic? No Blood Glucose - N/a mg/dL Post operative 1 week procedure: repair RD OD Operative eye: RIGHT EYE Patient denies complaints Presents with no dressing Did you wear eye shield to bed, slept on unaffected side and avoid bending over and heavy lifting? Yes Phenylephrine Hydrochloride 2.5% and Tropicamide Ophthalmic Solution 1% inserted into Right eye 11:[address]? Not yet Patient advised not to drive while eye's are dilated or vision is blurred. Pt/Family verbalizes understanding. documented in this encounter Plan of Treatment Upcoming Encounters Date Type Specialty Care Team Description 05/22/2023 Office Visit Family Medicine Maikolhelen SHEPHERD, Te Pérez MD [address] [place] [address] Health Maintenance Due Date Last Done Comments Cologuard 01/15/2001 Fecal Occult Blood Test 01/15/2001 Sigmoidoscopy 01/15/2001 COVID-19 Vaccine ( season) 2023 10/20/2022, 03/17/2022, 12/28/2021, Additional history exists Influenza Vaccine (FLU shot) (#1) 2023 02/27/2020, 04/17/2019, 04/17/2018, Additional history exists Depression Screening 11/12/2023 11/11/2022 GFR 11/13/2023 11/12/2022, 2 , 10/12/2020, Additional history exists HbA1c 11/13/2023 11/12/2022, /2 , 04/16/2019, Additional history exists Colonoscopy 07/14/2025 [...] this encounter Medical Devices Implanted Type Area Manufacturing Cost Estimator Device Identifier Shelf Expiration Date Model / Serial / Lot Envista Intraocular Lens Implanted:Qty: 1 on 11/18/2021 by Noble Rivera MD at OR [facility] Right: Eye [employer] LOMB 10/05/2022 [id number] / [id number] / [id number] Adatosil 5000 Oil Es 5000 S - [id number] - [id number] Implanted:Qty: 1 on 01/18/2023 by Quentin Caldera MD at OR [facility] Right: Eye BAUSCH [employer] LOMB : SURGICAL 05/07/2025 ES 5000 S / [id number] / [id number] documented as of this encounter Visit Diagnoses [...] Discussed due to patient's condition Care Teams Rn Sexual Assault Relationship Specialty Start Date End Date Te Lassiter III, MD [address] [place] [address], [place] [address] PCP - General 09/06/02 documented as of this encounter"
--- OUTSIDE RECORDS SUMMARY | 2023-03-17 23:08 | External Medical Summary | Summary of Care ---
Author Name Unknown Organization [facility] Address [address] [facility] [place] [address] Phone [phone] Care Team Providers Care Injury Prevention Coordinator Name Role Phone Maikol SHEPHERD MD, Te Pérez Primary Care Provider [phone] Reason for Visit * Reason Comments Post-Op 4 days post op OD; " still blurry" Encounter Details Date Type Department Care Team Description 12/16/2022 Office Visit Ophthalmology, [facility] [address] [place] [address] Quentin Caldera MD [address] [place] [address] Right retinal detachment* Allergies No known active allergiesdocumented as of this encounter (statuses as of 12/16/2022) Medications Medication Sig Dispensed Refills Start Date [...] THE MORNING 90 Tablet 3 12/01/2022 Active Gpfggami-Eetxtaocp-U exameth 3.5-65307-0.1 Ophthalmic Ointment (Maxitrol) Instill into the right eye 4 times a day. 3.5 g 3 12/13/2022 Active documented as of this encounter (statuses as of 12/16/2022) Active Problems Problem Noted Date Right retinal [...] as of this encounter (statuses as of 12/16/2022) Resolved Problems Problem Noted Date Resolved Date Mixed dyslipidemia 07/03/2006 04/21/2009 Overview: Per Lipid Taxonomy. documented as of this encounter (statuses as of 12/16/2022) Immunizations Name Administration Dates Next Due COVID-19 mRNA, LNP-s, No Pre serve, 2-Dose Series (InSpa) 02/10/2021,07/14/2020,06/16/2020 COVID-19, LNP-s, No Preserve , Popeye-sucrose, Ages 12+ (InSpa) 12/28/2021 Covid-19, Mrna, Lnp-s, Pf, B ivalent, 30 Mcg, IM, 12 yrs and above (Pfizer) 10/20/2022,03/17/2022 Pneumococcal Conjugate Vacci ne, 20-valent ([id number]) 10/20/2021 Seasonal Influenza, Quadriva lent, No Preserve, [...] Progress Notes * Quentin Caldera MD - 12/16/2022 11:26 AM EDT 12/16/2022 Nursing Notes: Sanjana Trinidad RN 12/16/22 1577 Signed Luis Emilia Whittington presents for p/o check. Patient's name preference, 'Luis' Last visit: 12/13/2022 Are you a diabetic? No "pre diabetic" Post operative day 4 procedure: S/p 25 G PPV/EL/[address] Operative eye: RIGHT EYE Pt States "still blurry" Did you wear eye shield to bed, slept on unaffected side and avoid bending over and heavy lifting? Yes Phenylephrine Hydrochloride 2.5% and Tropicamide Ophthalmic Solution 1% inserted into Right eye 10:[address]? yes Patient advised not to drive while eye's are dilated or vision is blurred. Pt/Family verbalizes understanding. OCT OD Nursing notes reviewed. Base Eye Exam Visual Acuity (Snellen - Linear) Right Left Dist sc 20/300 -1 20/60 -1 Dist ph sc 20/100 +2 20/50 -2 Tonometry (Tonopen, 11:07 AM) Right Left Pressure 12 14 Pupils Dark Light Shape React APD Right 6 6 Round none None Left 3 3 Round Minimal None Visual Chavez (Counting fingers) Right Left Full Full Extraocular Movement Right Left Full, Ortho Full, Ortho Neuro/Psych Oriented x3: Yes Mood/Affect: Normal Dilation Both eyes: 0.5% Proparacaine @ 11:06 AM Dilation #2 Right eye: 1.0% Mydriacyl, 2.5% Phenylephrine @ 11:06 AM Dilation Comments Patient cautioned that effects of dilation may last 2-7 hours dependant upon individual reaction. It was discussed that driving while dilated is not recommended. Strabismus Exam Correction: dc Observations: Ortho Distance Near Near +3DS N Bifocals cover/uncover, and alternate cover Slit Lamp and Fundus Exam External Exam [...] laser 360, tear at 1 and 530 OCT OD s/p peel Assessment/Plan: 1. Epiretinal membrane (ERM) of right eye S/p MP 2. Right retinal detachment - Surgery date: 12/12/22 - Surgery: Right eye 25 G PPV/EL/1000 CS SO (tear at 1 and 5:30) - POD#3 - IOP wnl; no infection; retina all flat Drops: 1. Ocuflox 1 drop 4x/day for 7 total days 2. Pred forte 1 drop 4x/day x 1 week, then 3x/day for 1 week, then 2x/day for 1 week, then 1x/day for 1 week, then stop - Positioning: Face down or right side down most of the day, starting Monday face down 10 minutes an hour or right side. - No heavy lifting/pushing/pulling/bending below waist - XS Tylenol as directed and needed for discomfort - Eye shield on while sleeping for 1 week - Patient is to f/u immediately if he develops worsening redness, eye pain, decrease in vision, nausea/vomiting, or discharge from eye, as these could be signs of an infection or increased pressure. FOLLOW UP: Follow Up: Return for As scheduled. | For: As scheduled Quentin Caldera MD 12/16/2022 documented in this encounter Nursing Notes * Sanjana Trinidad RN - 12/16/2022 10:57 AM EDT Luis Whittington presents for p/o check. Patient's name preference, 'Luis' Last visit: 12/13/2022 Are you a diabetic? No "pre diabetic" Post operative day 4 procedure: S/p 25 G PPV/EL/[address] Operative eye: RIGHT EYE Pt States "still blurry" Did you wear eye shield to bed, slept on unaffected side and avoid bending over and heavy lifting? Yes Phenylephrine Hydrochloride 2.5% and Tropicamide Ophthalmic Solution 1% inserted into Right eye 10:[address]? yes Patient advised not to drive while eye's are dilated or vision is blurred. Pt/Family verbalizes understanding. OCT OD documented in this encounter Plan of Treatment Upcoming Encounters Date Type Specialty Care Team Description 12/27/2022 Office Visit Ophthalmology Quentin Caldera MD [address] [place] [address] 05/22/2023 Office Visit Family Medicine Maikol III, Te Pérez MD [address] [place] [address] Health Maintenance Due Date Last Done Comments Cologuard 01/15/2001 Fecal Occult Blood Test 01/15/2001 Sigmoidoscopy 01/15/2001 Influenza Vaccine (FLU shot) (#1) 2023 02/27/2020, 04/17/2019, 04/17/2018, Additional history exists Depression Screening, Annual for Pts 12 and Over 11/12/2023 11/11/2022 GFR 11/13/2023 11/12/2022, 08/07, 10/12/2020, Additional history exists HbA1c 11/13/2023 11/12/2022, 042 , 04/16/2019, Additional history exists Colonoscopy 07/14/2025 [...] this encounter Medical Devices Implanted Type Area Generator Assembler Device Identifier Shelf Expiration Date Model / Serial / Lot Envista Intraocular Lens Implanted:Qty: 1 on 11/18/2021 by Noble Rivera MD at OR [facility] Right: Eye [employer]CH [employer] LOMB 10/05/2022 [id number] / [id number] / [id number] Oil Silicone 1000 8.5ml - [id number] Implanted:Qty: 1 on 12/12/2022 by Quentin Caldera MD at OR [facility] Right: Eye [employer] 01/06/2024 [id number] documented as of this [...] Discussed due to patient's condition Care Teams Injury Prevention Coordinator Relationship Specialty Start Date End Date Te Lassiter III, MD [address] [facility] [place] [address] PCP - General 09/06/02 documented as of this encounter
--- OUTSIDE RECORDS SUMMARY | 2023-03-17 23:08 | External Medical Summary | Summary of Care ---
Author Name Unknown Organization [facility] Address [address] [facility] [place] [place] [address] Phone [phone] Care Team Providers Care Aircraft Manager Name Role Phone Maikol SHEPHERD MD, Te Pérez Primary Care Provider [phone] Reason for Visit * Reason Comments Post-Op 1 day post op , repa ir vitrectomy OD Dr. Caldera Encounter Details Date Type Department Care Team Description 01/19/2023 Office Visit Ophthalmology, [facility] [address] [place] [address] Kendall Fernandez, [address] [place] [address] Right retinal detachment* Allergies No known active [...] THE MORNING 90 Tablet 3 12/01/2022 Active Uenaepnr-Ebetliymv-P exameth 3.5-08470-0.1 Ophthalmic Ointment (Maxitrol) Instill into the right [...] mRNA, LNP-s, No Pre serve, 2-Dose Series (AMEE) 02/10/2021,07/14/2020,06/16/2020 COVID-19, LNP-s, No Preserve , Popeye-sucrose, Ages 12+ (AMEE) 12/28/2021 Covid-19, Mrna, Lnp-s, Pf, B ivalent, 30 Mcg, IM, 12 yrs and above (Pfizer) 10/20/2022,03/17/2022 Pneumococcal Conjugate Vacci ne, 20-valent ([id number]) 10/20/2021 Seasonal Influenza, PF, 6 mo ns [...] Fernandez DO - 01/19/2023 2:30 PM EDT [facility] [place] Nursing [...] Encounters Date Type Specialty Care Team Description 01/24/2023 Office Visit Ophthalmology Quentin Caldera MD [address] [place] [address] 05/22/2023 Office Visit Family Medicine Te Lassiter III, MD 200 [place] [address] Health Maintenance Due Date Last Done Comments [...] this encounter Medical Devices Implanted Type Area It Solutions Sales Consultant Device Identifier Shelf Expiration Date Model / Serial / Lot Envista Intraocular Lens Implanted:Qty: 1 on 11/18/2021 by Noble Rivera MD at OR [facility] Right: Eye [employer] 10/05/2022 [id number] / [id number] / [id number] Adatosil 5000 Oil Es 5000 S - [id number] - [id number] Implanted:Qty: 1 on 01/18/2023 by Quentin Caldera MD at OR [facility] Right: Eye BA[employer]CH [employer] LOMB : SURGICAL 05/07/2025 ES 5000 S / [id number] / [id number] documented as of this encounter Visit Diagnoses [...] Discussed due to patient's condition Care Teams Aircraft Manager Relationship Specialty Start Date End Date Maikol CORA, Te Pérez MD [address] [place] [address], [place] [address] PCP - General 09/06/02 documented as of this encounter
--- OUTSIDE RECORDS SUMMARY | 2023-03-17 23:08 | External Medical Summary | Summary of Care ---
Author Name Unknown Organization [facility] Address [address] [facility] [place] [address] Phone [phone] Care Team Providers Care Scalp Treatment Operator Name Role Phone Maikol SHEPHERD MD, Te Pérez Primary Care Provider [phone] Reason for Visit * Reason Comments Post-Op 1 week post op ; 3rd procedure Encounter Details Date Type Department Care Team Description 01/24/2023 Office Visit Ophthalmology, [facility] [address] [facility] [place] [id number] Quentin Caldera MD [address] [place] [address] Right retinal detachment* Allergies No known active allergiesdocumented as of this encounter (statuses as of 01/24/2023) Medications Medication Sig Dispensed Refills Start Date [...] THE MORNING 90 Tablet 3 12/01/2022 Active Cjnopjrg-Twapfzspr-V exameth 3.5-28925-8.1 Ophthalmic Ointment (Maxitrol) Instill into the right eye 4 times a day. 3.5 g 3 12/13/2022 Active documented as of this encounter (statuses as of 01/24/2023) Active Problems Problem Noted Date Right retinal [...] as of this encounter (statuses as of 01/24/2023) Resolved Problems Problem Noted Date Resolved Date Mixed dyslipidemia 07/03/2006 04/21/2009 Overview: Per Lipid Taxonomy. documented as of this encounter (statuses as of 01/24/2023) Immunizations Name Administration Dates Next Due COVID-19 mRNA, LNP-s, No Pre serve, 2-Dose Series ([employer]) 02/10/2021,07/14/2020,06/16/2020 COVID-19, LNP-s, No Preserve , Popeye-sucrose, Ages 12+ (Pfizer) 12/28/2021 Covid-19, Mrna, Lnp-s, Pf, B ivalent, 30 Mcg, IM, 12 yrs and above (Pfizer) 10/20/2022,03/17/2022 Pneumococcal Conjugate Vacci ne, 20-valent ([id number]) 10/20/2021 Seasonal Influenza, PF, 6 mo ns [...] cap) 4 x a day until Atropine (credit administrator) Stop Prednisolone (pink cap) 4 x a day until seen again documented in this encounter Progress Notes * Quentin Caldera MD - 01/24/2023 12:38 PM EDT 01/24/2023 Nursing Notes: Beverly Terrell, MED ASSIST 01/24/23 1208 Signed Luis Emilia Russaiden presents for p/o check. Patient's name preference, [...] cap) 4 x a day until Atropine (credit administrator) Stop Prednisolone (pink cap) 4 x a [...] Encounters Date Type Specialty Care Team Description 02/09/2023 Office Visit Ophthalmology Kendall Fernandez, [address] [place] [address] 02/24/2023 Office Visit Ophthalmology Quentin Caldera MD [address] [place] [address] 05/22/2023 Office Visit Family Medicine Glynn IIITe MD [facility] [address] Health Maintenance Due Date Last Done Comments [...] this encounter Medical Devices Implanted Type Area Boarding Room Fixer Device Identifier Shelf Expiration Date Model / Serial / Lot Envista Intraocular Lens Implanted:Qty: 1 on 11/18/2021 by Noble Rivera MD at OR [facility] Right: Eye [employer]USCH [employer] LOMB 10/05/2022 [id number] / [id number] / [id number] Adatosil 5000 Oil Es 5000 S - [id number] - [id number] Implanted:Qty: 1 on 01/18/2023 by Quentin Caldera MD at OR [facility] Right: Eye BAUSCH [employer] LOMB : SURGICAL 05/07/2025 ES 5000 S / [id number] / [id number] documented as of this encounter Visit Diagnoses [...] Discussed due to patient's condition Care Teams Scalp Treatment Operator Relationship Specialty Start Date End Date Te Lassiter III, MD [address] [place] [address], [place] [address] PCP - General 09/06/02 documented as of this encounter"
--- OUTSIDE RECORDS SUMMARY | 2023-03-17 23:08 | External Medical Summary | Summary of Care ---
Author Name Unknown Organization [facility] Address [address] [facility] [place] [address] Phone [phone] Care Team Providers Care Printer Slotter Operator Name Role Phone Maikol SHEPHERD MD, Te Pérez Primary Care Provider [phone] Reason for Visit * Reason Comments Post-Op 1 week return; pt meyer s no complaints since ALEC Encounter Details Date Type Department Care Team Description 02/16/2023 Office Visit Ophthalmology, [facility] [address] [place] [address] Kendall Fernandez, DO [address] [place] [address] Right retinal detachment* Allergies No known active [...] THE MORNING 90 Tablet 3 12/01/2022 Active Iwjcukmd-Qswjrqicp-I exameth 3.5-89230-8.1 Ophthalmic Ointment (Maxitrol) Instill into the right [...] mRNA, LNP-s, No Pre serve, 2-Dose Series (Bookya) 02/10/2021,07/14/2020,06/16/2020 COVID-19, LNP-s, No Preserve , Popeye-sucrose, Ages 12+ (Bookya) 12/28/2021 Covid-19, Mrna, Lnp-s, Pf, B ivalent, 30 Mcg, IM, 12 yrs and above (Pfizer) 10/20/2022,03/17/2022 Pneumococcal Conjugate Vacci ne, 20-valent ([id number]) 10/20/2021 SEASONAL INFLUENZA, PF, 6 M & [...] Team Description 05/22/2023 Office Visit Family Medicine Clinton III, Te Pérez MD [address] [place] [address] Scheduled Orders Name Type Priority Associated Diagnoses [...] this encounter Medical Devices Implanted Type Area Tube Inspector Device Identifier Shelf Expiration Date Model / Serial / Lot Envista Intraocular Lens Implanted:Qty: 1 on 11/18/2021 by Noble Rivera MD at OR [facility] Right: Eye [employer]CH [employer] LOMB 10/05/2022 [id number] / [id number] / [id number] Adatosil 5000 Oil Es 5000 S - [id number] - [id number] Implanted:Qty: 1 on 01/18/2023 by Quentin Caldera MD at OR [facility] Right: Eye BAUSCH [employer] LOMB : SURGICAL 05/07/2025 ES 5000 S / [id number] / [id number] documented as of this encounter Visit Diagnoses [...] Discussed due to patient's condition Care Teams Printer Slotter Operator Relationship Specialty Start Date End Date Clintonhelen SHEPHERD, Te Pérez MD [address] [place] [address] PCP - General 09/06/02 documented as of this encounter
--- OUTSIDE RECORDS SUMMARY | 2023-03-17 23:08 | External Medical Summary | Summary of Care ---
Author Name Unknown Organization [facility] Address [address] [facility] [place] [address] Phone [phone] Care Team Providers Care Locomotive Crane Operator Name Role Phone Maikol SHEPHERD MD, Te Pérez Primary Care Provider [phone] Reason for Visit * Reason Comments Post-Op 2 weeks OS 01/18/23 Encounter Details Date Type Department Care Team Description 02/09/2023 Office Visit Ophthalmology, [facility] [address] [place] [address] Kendall Fernandez, DO [address] [place] [address] Right retinal detachment*; Epiretinal membrane (ERM) of right eye Allergies No known active allergiesdocumented as of this encounter (statuses as of 02/10/2023) Medications Medication Sig Dispensed Refills Start Date [...] THE MORNING 90 Tablet 3 12/01/2022 Active Uiewyeye-Memgzkuhs-M exameth [id number] Ophthalmic Ointment (Maxitrol) Instill into the right eye 4 times a day. 3.5 g 3 12/13/2022 Active documented as of this encounter (statuses as of 02/10/2023) Active Problems Problem Noted Date Right retinal [...] as of this encounter (statuses as of 02/10/2023) Resolved Problems Problem Noted Date Resolved Date Mixed dyslipidemia 07/03/2006 04/21/2009 Overview: Per Lipid Taxonomy. documented as of this encounter (statuses as of 02/10/2023) Immunizations Name Administration Dates Next Due COVID-19 mRNA, LNP-s, No Pre serve, 2-Dose Series ([employer]) 02/10/2021,07/14/2020,06/16/2020 COVID-19, LNP-s, No Preserve , Popeye-sucrose, Ages 12+ (Pfizer) 12/28/2021 Covid-19, Mrna, Lnp-s, Pf, B ivalent, 30 Mcg, IM, 12 yrs and above (Pfizer) 10/20/2022,03/17/2022 Pneumococcal Conjugate Vacci ne, 20-valent ([id number]) 10/20/2021 SEASONAL INFLUENZA, PF, 6 M & [...] documented in this encounter Nursing Notes * DILIP RUEDA - 02/09/2023 9:29 AM EDT Luis Whittington [...] Encounters Date Type Specialty Care Team Description 02/16/2023 Office Visit Ophthalmology Kendall Fernandez DO [address] [place] [address] 02/24/2023 Office Visit Ophthalmology Quentin Caldera MD [address] [place] [address] 05/22/2023 Office Visit Family Medicine Maikol IIITe MD [address] [place] [address] Scheduled Orders Name Type Priority Associated Diagnoses [...] this encounter Medical Devices Implanted Type Area Mineral Industry Teacher Device Identifier Shelf Expiration Date Model / Serial / Lot Envista Intraocular Lens Implanted:Qty: 1 on 11/18/2021 by Noble Rivera MD at OR [facility] Right: Eye [employer] 10/05/2022 [id number] / [id number] / [id number] Adatosil 5000 Oil Es 5000 S - [id number] - [id number] Implanted:Qty: 1 on 01/18/2023 by Quentin Caldera MD at OR [facility] Right: Eye [employer] : SURGICAL 05/07/2025 ES 5000 S / [id number] documented as of this encounter Visit Diagnoses [...] Discussed due to patient's condition Care Teams Locomotive Crane Operator Relationship Specialty Start Date End Date Te Lassiter III, MD [address] [facility] [place], [place] [address] PCP - General 09/06/02 documented as of this encounter
--- OUTSIDE RECORDS SUMMARY | 2023-03-17 23:08 | External Medical Summary | Summary of Care ---
Author Name Unknown Organization [facility] Address [address] [facility] [place] [address] Phone [phone] Care Team Providers Care Spice Cleaner Name Role Phone Maikol SHEPHERD MD, Te Pérez Primary Care Provider [phone] Reason for Visit * Auth/Cert Specialty Diagnoses / Procedures Referred By Enriqueta vincent Referred To Contact Diagnoses Total retinal detachment of right eye Total retinal detachment of right eye [H33.051] Procedures REPAIR DETACHED RETINA, VITRECTOMY RIGHT REPAIR RETINAL DETACHMENT WITH VITRECTOMY Referral ID Status Reason Start Date Expiration Date Visits Re quested Visits Authorized [id number] Encounter Details Date Type Department Care Team Description 12/12/2022 Hospital Encounter OR [facility], Operating Room, [facility] 3rd Floor [address] [place] [address] Quentin Caldera MD [address] [address] Allergies No known active allergiesdocumented as of [...] THE MORNING 90 Tablet 3 12/01/2022 Active documented as of this encounter (statuses [...] mRNA, LNP-s, No Pre serve, 2-Dose Series ([employer]) 02/10/2021,07/14/2020,06/16/2020 COVID-19, LNP-s, No Preserve , Popeye-sucrose, Ages 12+ (Pfizer) 12/28/2021 Covid-19, Mrna, Lnp-s, Pf, B ivalent, 30 Mcg, IM, 12 yrs and above (Pfizer) 10/20/2022,03/17/2022 Pneumococcal Conjugate Vacci ne, 20-valent ([id number]) 10/20/2021 Seasonal Influenza, Quadriva lent, No Preserve, [...] Sign Reading Time Taken Comments Blood Pressure 125/73 12/12/2022 3:45 PM EDT Pulse 62 12/12/2022 3:45 PM EDT Temperature 36.3 C (97.3 F) 12/12/2022 3:10 PM ED T Respiratory Rate 12 12/12/2022 3:45 PM EDT Oxygen Saturation 99% 12/12/2022 3:45 PM EDT Inhaled Oxygen Concentration - - Weight - - Height - - Body Mass Index - - documented in this encounter Discharge Instructions * Discharge Instr - AVS* Quentin Caldera MD - 12/12/2022 1:44 PM EDT Please contact your physician at [phone] with any concerns or questions. After 5:00 p.m. or onthe weekend, call the [facility] Emergency Room at and ask for the residential director long goods drier.Scheduling Services is available daily between the hours of 8:00 a.m. and 9:00 p.m. by calling . Your attending physician at the time of your discharge was: Quentin Caldera MD [address] [facility] [address] [place] [address] The information below provides you with the [...] No Driving. Follow Up - Return appointment(s): 11AM at [facility] with Dr. Caldera Special Instructions: - Face down today. - Sleep on your right side. - Starting tomorrow either right side down or face down 45-50 minutes out of every hour HOME INSTRUCTIONS AFTER RETINAL OR VITREOUS SURGERY [...] (SHAKE) X (SHAKE) X (SHAKE) X (SHAKE) To instill eye drops, tilt head back, [...] DO NOT HESITATE TO CALL US AT [phone] AT ANY TIME After 5:00 p.m. or on the weekend, call the [facility] Emergency Room at and ask for the residential director long goods drier. documented in this encounter Progress Notes * Quentin Caldera MD - 12/12/2022 1:43 PM EDT Discharge Summary Patient Active Problem [...] Right retinal detachment H33.21 Surgery: right eye PPV/RD repair Pt examined and medically cleared for discharge Quentin Caldera MD 12/12/2022 documented in this encounter H&P Notes * Quentin Caldera MD - 12/12/2022 12:47 PM EDT HISTORY & PHYSICAL INTERVAL NOTE [facility] [address] [facility] [address] History and Physical Update: Name: Luis Whittington Location: OR [facility] Date: 12/12/2022 Time: 12:47 PM DATE OF HISTORY AND PHYSICAL: 12/12/22 BP 136/72 | Pulse 88 | Temp 36.6 C (97.9 F) | Ht 1.803 m (5' 10.98") | Wt 104.9 kg (231lb 3.2 oz) | SpO2 96% I have reviewed the H&P previously performed and examined the patient today. There are no new findings noted. right eye today * Quentin Caldera MD - 12/12/2022 12:46 PM EDT 12/12/2022 Luis Whittington is a 67 year old male. Chief Complaint Patient presents with Physical-Exam Pt stated that he is here for a physical exam HPI:Preoperative consultation from planned right vitrectomy for RD PMH: Patient Active Problem List [...] DIAGNOSTIC (RECTUM) 07/15/2015 submucosal mass - appendicieal orifice/[facility] EGD, FLEXIBLE, DIAGNOSTIC 05/26/11 wnl MISCELLANEOUS ORDER ([facility] ONLY) ACT 112 SIGNED, Dr. Fernandez (12-06-2018) REMOVAL OF APPENDIX REMOVE CATARACT, INSERT LENS PROSTH Right 11/18/2021 right EXTRACAPSULAR CATARACT REMOVAL WITH INTRAOCULAR LENS performed by Noble Rivera MD at OR [facility] REPAIR INITIAL INGUINAL HERNIA REDUCIBLE AGE 5 OR MORE Objective: The patient is a 67 year old male BP 136/72 | Pulse 88 | Temp 36.6 C (97.9 F) | Ht 1.803 m (5' 10.98") | Wt 104.9 kg (231lb 3.2 oz) | SpO2 96% | BMI 32.26 kg/m | BSA 2.29 m General:alert, healthy and no distress Eye Exam:PERRLA, extraocular movements intact, conjunctiva are pink and non- injected, sclera clear Ears:External ears normal, Canals clear, TM's Normal Oropharynx:no exudate, no erythema, lips, buccal mucosa, and tongue normal and mucous membranes are moist Neck:supple, no adenopathy, no bruits, thyroid normal size, non-tender, without nodularity Heart:regular rate & rhythm, no murmur and no gallops Lungs:lungs clear to auscultation,no rhonchi rales rubs wheezes Pulses:carotid=2/4 w/o bruits, posterior tibial=2/4 Abdomen:abdomen soft, non-tender, normal bowel sounds and no masses or organomegaly Extremities:no edema, no clubbing, no cyanosis Neuro Exam:alert & oriented x 3 with fluent speech, reflexes normal and symmetric Exam (Male):no abnormalities of scrotal contents, no hernia detected ASSESSMENT: I10 HTN, goal below 140/90 (primary encounter diagnosis) E78.5 Dyslipidemia, goal LDL below 130 R73.03 Prediabetes Z00.00 Routine medical exam Z12.5 Screening for prostate cancer PLAN: Patient acceptable risk for planned procedure Quentin Caldera MD documented in this encounter OR Notes * OR Surgeon - Quentin Caldera MD - 12/12/2022 1:43 PM EDT OPERATIVE RECORD Name: Luis Whittington Date/Time: 12/12/2022 Location: OR [facility] Service: Ophthalmology Pre-op Diagnosis: right eye 1. Retinal tear 2. Retinal detachment Post-op Diagnosis: Same NAME OF PROCEDURES: right eye 1. Pars plana vitrectomy 2. Retinal detachment repair 3.1000 CS silicone oil injection Complications: None. Estimated Blood Loss: Under 5 cc DESCRIPTION OF PROCEDURE: The patient was identified in the preoperative holding area. The patient's right eye was confirmed as the surgical eye. It was then marked and dilated. The surgical procedure was reviewed with the patient and all questions answered. The informed consent was confirmed to be located in the chart. Thepatient was taken to the operating room and given IV sedation while a retrobulbar block was administered in the usual fashion without any complication. The eye was prepped with double diluted 10% Betadine solution and thoroughly irrigated and dried. A sterile ophthalmic drape and speculum were placed in the eye. The 25-gauge system was used and trocars were used to make sclerotomies 3.5 - 4 mm posterior to the limbus inferotemporally, superotemporally and superonasally. The infusion line was inserted into the inferotemporal port and viewed through the pupil to ensure proper positioning in thevitreous cavity before being turned on. A complete core vitrectomy with peripheral shaving was performed. A prior vitrectomy had been performed, but there was residual vitreous nasal A retinal tear was isolated in the 1 and 5:30 o'clock position. A complete peripheral retinal examination with scleral indentation revealed no other tears. The vitreous over the tear and over all other suspicious areas was meticulously removed. The identified tear(s) and any suspicious area was marked with endodiathermy. A retinotomy was created at 3 in the midperiphery A fluid air exchange was performed with a silicone tip cannula through the retinotomy to flatten the retina by removing the subretinal fluid. The retina was found to be completely flat under air. Endolaser photocoagulation was then performed around the tears and the retinotomy and 360 along thevitreous base The air was exchanged for 1000 CS silicone oil I removed the ports and closed with with 7-0 Vicryl. One drop of ofloxacin and prednisolone were given. The lid speculum was removed. Ophthalmic ointment, 2 patches were placed on the eye. The patient was taken to recovery in stable condition and was directed that face down positioning was necessary. Quentin Caldera MD 12/12/2022 Surgeon:Quentin Caldera MD Assistants: None Anesthesia: Monitored Local Anesthesia with Sedation Drains: none Estimated Blood Loss: <1 ml. IV Fluids: <500 ml. Urine Output: N/A Specimens/Disposition: None Apparent Intraoperative Complications: None Patient Condition: stable Disposition: Post Anesthesia Care Unit Attestation: I performed the procedure cc: Professional Reimbursement and Compliance documented in this encounter Plan of Treatment Upcoming Encounters Date Type Specialty Care Team Description 12/13/2022 Office Visit Ophthalmology Quentin Caldera MD [address] [place] [address] Nurse Judi Ophthalmology [address] [facility] [place] [address] 12/27/2022 Office Visit Ophthalmology Quentin Caldera MD [address] [facility] [address] [place] [address] 05/22/2023 Office Visit Family Medicine Maikol Te SHEPHERD MD [address] [facility], [place] [address] Health Maintenance Due Date Last Done Comments [...] this encounter Medical Devices Implanted Type Area Shift Mgr Device Identifier Shelf Expiration Date Model / Serial / Lot Envista Intraocular Lens Implanted:Qty: 1 on 11/18/2021 by Noble Rivera MD at OR [facility] Right: Eye [employer] 10/05/2022 [id number] / [id number] / [id number] Oil Silicone 1000 8.5ml - [id number] Implanted:Qty: 1 on 12/12/2022 by Quentin Caldera MD at OR [facility] Right: Eye [employer] 01/06/2024 [id number] / [id number] documented as of this encounter Visit Diagnoses Diagnosis Right retinal detachment- Primary Unspecified retinal detachment Right retinal detachment Unspecified retinal detachment documented in this encounter Administered Medications Inactive Administered Medications - up to 3 most recent administrations Medication Order MAR Action Action Date Dose Rate Site atropine sulfate 1 % ophthalmic solution 1 Drop 1 Drop, Right eye, Q5 MINUTES, First dose on Mon12/12/22 at 1345, Last dose on Mon12/12/22 at 1355, For 3 doses, Begin 90 min preop, Pre-Op Given 12/12/2022 1:35 PM EDT 1 Drop Given 12/12/2022 1:30 PM EDT 1 Drop Given 12/12/2022 1:23 PM EDT 1 Drop Ofloxacin (Ocuflox) 0.3 % ophthalmic solution 1 Drop 1 Drop, Right eye, Q5 MINUTES, First dose on Mon12/12/22 at 1345, Last dose on Mon12/12/22 at 1355, For 3 doses, PRE-OP: One drop to right eye every 5 minutes for 3 doses, Pre-Op Given 12/12/2022 1:3 5 PM EDT 1 Drop Given 12/12/2022 1:30 PM EDT 1 Drop Given 12/12/2022 1:23 PM EDT 1 Drop PHENYLephrine (Ak-Dilate) 2.5 % ophthalmic solution 1 Drop 1 Drop, Right eye, Q5 MINUTES, First dose on Mon12/12/22 at 1345, Last dose on Mon12/12/22 at 1355, For 3 doses, PRE-OP: 1 drop to right eye every 5 minutes for 3 doses, Pre-Op Given 12/12/2022 1:[address] op Given 12/12/2022 1:30 PM EDT 1 Drop Given 12/12/2022 1:23 PM EDT 1 Drop prednisoLONE Acetate (Pred Forte) 1 % ophthalmic suspension 1 Drop 1 Drop, Right eye, Q5 MINUTES, First dose on Mon12/12/22 at 1345, Last dose on Mon12/12/22 at 1355, For 3 doses, PRE-OP: One drop to right eye every 5 minutes for 3 doses., Pre-Op Given 12/12/2022 1:35 PM EDT 1 Drop Given 12/12/2022 1:30 PM EDT 1 Drop Given 12/12/2022 1:23 PM EDT 1 Drop proparacaine (Alcaine) 0.5 % ophthalmic solution 1 Drop 1 Drop, Right eye, ONCE, On Mon12/12/22 at 1345, For 1 dose, PRE-OP: 15 minutes prior to scheduled surgery time for 1 dose, Pre-Op Given 12/12/2022 1:23 PM EDT 1 Drop documented in this encounter Active and Recently Administered Medications Times are shown in EDT. Scheduled Medication Order 12/10/2022 12/11/2022 12/12/2022 atropine sulfate 1 % ophthalmic solution 1 Drop (COMPLETED) 1 Drop, Right eye, Q5 MINUTES, First dose on Mon12/12/22 at 1345, Last dose on Mon12/12/22 at 1355, For 3 doses, Begin 90 min preop, Pre-Op 1323 (Given - Provid er: Thad Michael RN)1330 (Given - Provider: Thad Michael RN)1335 (Given - Provider: Thad Michael RN) Ofloxacin (Ocuflox) 0.3 % ophthalmic solution 1 Drop (COMPLETED) 1 Drop, Right eye, Q5 MINUTES, First dose on Mon12/12/22 at 1345, Last dose on Mon12/12/22 at 1355, For 3 doses, PRE-OP: One drop to right eye every 5 minutes for 3 doses, Pre-Op 1323 (Given - Provid er: Thad Michael RN)1330 (Given - Provider: Thad Michael RN)1335 (Given - Provider: Thad Michael RN) PHENYLephrine (Ak-Dilate) 2.5 % ophthalmic solution 1 Drop (COMPLETED) 1 Drop, Right eye, Q5 MINUTES, First dose on Mon12/12/22 at 1345, Last dose on Mon12/12/22 at 1355, For 3 doses, PRE-OP: 1 drop to right eye every 5 minutes for 3 doses, Pre-Op 1323 (Given - Provid er: Thad Michael RN)1330 (Given - Provider: Thad Michael RN)1335 (Given - Provider: Thad Michael RN) prednisoLONE Acetate (Pred Forte) 1 % ophthalmic suspension 1 Drop (COMPLETED) 1 Drop, Right eye, Q5 MINUTES, First dose on Mon12/12/22 at 1345, Last dose on Mon12/12/22 at 1355, For 3 doses, PRE-OP: One drop to right eye every 5 minutes for 3 doses., Pre-Op 1323 (Given - Provid er: Thad Michael RN)1330 (Given - Provider: Thad Michael RN)1335 (Given - Provider: Thad Michael RN) proparacaine (Alcaine) 0.5 % ophthalmic solution 1 Drop (COMPLETED) 1 Drop, Right eye, ONCE, On Mon12/12/22 at 1345, For 1 dose, PRE-OP: 15 minutes prior to scheduled surgery time for 1 dose, Pre-Op 1323 (Given - Provid er: Thad Michael RN) PRN Medication Order 12/10/2022 12/11/2022 12/12/2022 bupivacaine (PF) 4.5 mL, Hyaluronidase Human 150 Units, lidocaine 2 % 4.5 mL inj (CANCELED) ONCE PRN INTRA PROCEDURE, Starting on Mon12/12/22 at 1359, Until Mon12/12/22 at 1509, Intra-Op 1359 (Given - Provid er: Quentin Caldera MD - Comment: Retrobulbular) DUOVISC inj KIT (CANCELED) ONCE PRN INTRA PROCEDURE, Starting on Mon12/12/22 at 1402, Until Mon12/12/22 at 1509, Intra-Op 1402 (Given - Provid er: Quentin Caldera MD) EPINEPHrine 1 mg in balanced salt solution 500 mL inj (CANCELED) ONCE PRN INTRA PROCEDURE, Starting on Mon12/12/22 at 1400, Until Mon12/12/22 at 1509, Intra-Op 1400 (Given - Provid er: Quentin Caldera MD - Comment: PRN intraop) Erythromycin ophthalmic ointment (CANCELED) ONCE PRN INTRA PROCEDURE, Starting on Mon12/12/22 at 1402, Until Mon12/12/22 at 1509, Intra-Op 1402 (Given - Provid er: Quentin Caldera MD) Triamcinolone Acetonide (Kenalog) 40 MG/ML inj (CANCELED) ONCE PRN INTRA PROCEDURE, Starting on Mon12/12/22 at 1506, Until Mon12/12/22 at 1509, Intra-Op 1506 (Given - Provid er: Quentin Caldera MD) documented in this encounter Advance Directives Latest Code Status on File Code Status Date Activated Date Inactivated Comments Full Code 12/12/2022 1:06 PM 12/12/2022 8:08 PM This or julio reflects the patients wishes and were consensually agreed upon. Question Answer Comments Discussion of Advance Directives occurred with: Not Discussed due to patient's condition Care Teams Spice Cleaner Relationship Specialty Start Date End Date Maikol CORA, Te Pérez MD [address] [place] [address] PCP - General 09/06/02 documented as of this encounter
--- OUTSIDE RECORDS SUMMARY | 2023-03-17 23:08 | External Medical Summary | Summary of Care ---
Author Name Unknown Organization [facility] Address [address] [facility] [place] [address] Phone [phone] Care Team Providers Care Mail Sorter Name Role Phone Maikol SHEPHERD MD, John E Primary Care Provider [phone] Encounter Details Date Type Department Care Team Description 11/13/2022 Telephone Family Practice [facility] [address] [facility] [place] [address] Te Lassiter III, MD [address] [facility] [place] [address] Allergies No known active allergiesdocumented as of this encounter (statuses as of 02/12/2023) Medications Medication Sig Dispensed Refills Start Date [...] EVERY DAY 270 Tablet 2 09/21/2022 Active documented as of this encounter (statuses as of 02/12/2023) Active Problems Problem Noted Date Right retinal [...] as of this encounter (statuses as of 02/12/2023) Resolved Problems Problem Noted Date Resolved Date Mixed dyslipidemia 07/03/2006 04/21/2009 Overview: Per Lipid Taxonomy. documented as of this encounter (statuses as of 02/12/2023) Immunizations Name Administration Dates Next Due COVID-19 mRNA, LNP-s, No Pre serve, 2-Dose Series (Quid) 02/10/2021,07/14/2020,06/16/2020 COVID-19, LNP-s, No Preserve , Popeye-sucrose, Ages 12+ (Pfizer) 12/28/2021 Covid-19, Mrna, Lnp-s, Pf, B ivalent, 30 Mcg, IM, 12 yrs and above (Pfizer) 10/20/2022,03/17/2022 Pneumococcal Conjugate Vacci ne, 20-valent ([id number]) 10/20/2021 SEASONAL INFLUENZA, PF, 6 M & [...] on file documented as of this encounter Plan of Treatment Upcoming Encounters Date Type Specialty Care Team Description 02/16/2023 Office Visit Ophthalmology Kendall Fernandez, DO [address] [place] [address] 02/24/2023 Office Visit Ophthalmology Quentin Caldera MD [address] [address] [place] [address] 05/22/2023 Office Visit Family Medicine Te [facility]assiter III, MD [address] [facility] [address] Scheduled Orders Name Type Priority Associated Diagnoses Orde r Schedule COMPREHENSIVE METABOLIC PANEL Lab Routine HTN, goal below 140/90 Expected: 11/13/2022 (Approximate), Expires: 11/13/2023 Health Maintenance Due Date Last Done Comments [...] this encounter Medical Devices Implanted Type Area Tornado Chaser Device Identifier Shelf Expiration Date Model / Serial / Lot Envista Intraocular Lens Implanted:Qty: 1 on 11/18/2021 by Noble Rivera MD at OR [facility] Right: Eye [employer] 10/05/2022 [id number] / [id number] Adatosil 5000 Oil Es 5000 S - [id number] - [id number] Implanted:Qty: 1 on 01/18/2023 by Quentin Caldera MD at OR [facility] Right: Eye [employer] : SURGICAL 05/07/2025 ES 5000 S / [id number] Explanted Type Area Tornado Chaser Device Identifier Shelf Expiration Date Model / Serial / Lot Oil Silicone 1000 8.5ml - [id number] Implanted:Qty: 1 on 12/12/2022 by Quentin Caldera MD at OR [facility] Explanted:Qty: 1 on 01/18/2023 by Quentin Caldera MD at OR [facility] Right: Eye [employer] 01/06/2024 [id number] / [id number] documented as of this encounter Results * ALBUMIN / CREATININE RATIO, URINE (11/18/2022 3:00 PM EDT) Albumin, Random Urine <1.20 mg/dL 11/18/2022 10:02 PM EDT [facility] Creatinine, Random Urine 191 mg/dL 11/18/2022 10:02 PM EDT [facility] Albumin / Creatinine Ratio, Urine <6 <30 mg/g Creat 11/18/2022 10:02 PM EDT [facility] Urine Urine specimen obtained by clean catch procedure / Unknown Non-blood Collection / Unknown 11/18/2022 3:00 PM EDT 11/18/2022 3:00 PM EDT Narrative [facility] - 11/18/2022 10:02 PM EDT Normal: <30 mg/g creatinine High: 30-300 mg/g creatinine Very High: >300 mg/g creatinine Nephrotic: >2200 mg/g creatinine Te Lassiter III, MD LAB URINE ORDERABLE S Performing Organization Address City/State/[facility] Co de Phone Number [facility] [address] [place] [address] documented in this encounter Visit Diagnoses Diagnosis HTN, goal below 140/90- Primary Unspecified essential hypertension documented in this encounter Advance Directives Latest [...] Discussed due to patient's condition Care Teams Mail Sorter Relationship Specialty Start Date End Date Maikol SHEPHERD, Te Pérez MD [address] [place] [address], [place] [address] PCP - General 09/06/02 documented as of this encounter
--- OUTSIDE RECORDS SUMMARY | 2023-03-17 23:08 | External Medical Summary | Summary of Care ---
Author Name Unknown Organization [facility] Address [address] [facility] [place] [address] Phone [phone] Care Team Providers Care Local Flatbed Driver Name Role Phone Maikol SHEPHERD MD, Te Pérez Primary Care Provider [phone] Reason for Visit * Reason Comments Follow Up 1-[address] ates "Vision is better, OD is little cloudy" Encounter Details Date Type Department Care Team Description 12/27/2022 Office Visit Ophthalmology, [facility] [address] [facility] [place] [address] Quentin Caldera MD [address] [...] THE MORNING 90 Tablet 3 12/01/2022 Active Lpzqpczj-Lsmhjryjh-Z exameth [id number] Ophthalmic Ointment (Maxitrol) Instill into the right [...] mRNA, LNP-s, No Pre serve, 2-Dose Series (Phase Eight) 02/10/2021,07/14/2020,06/16/2020 COVID-19, LNP-s, No Preserve , Popeye-sucrose, Ages 12+ (Pfizer) 12/28/2021 Covid-19, Mrna, Lnp-s, Pf, B ivalent, 30 Mcg, IM, 12 yrs and above (Pfizer) 10/20/2022,03/17/2022 Pneumococcal Conjugate Vacci ne, 20-valent ([id number]) 10/20/2021 Seasonal Influenza, PF, 6 mo ns [...] * Patient Instructions* Quentin Caldera MD - 12/27/2022 12:33 PM EDT [...] Family Medicine Maikol III, Te Pérez MD [address] [place] [address] Health Maintenance Due Date Last Done Comments [...] this encounter Medical Devices Implanted Type Area Maintenance Of Way Superintendent Device Identifier Shelf Expiration Date Model / Serial / Lot Envista Intraocular Lens Implanted:Qty: 1 on 11/18/2021 by Noble Rivera MD at OR [facility] Right: Eye [employer] 10/05/2022 [id number] / [id number] / [id number] Oil Silicone 1000 8.5ml - [id number] Implanted:Qty: 1 on 12/12/2022 by Quentin Caldera MD at OR [facility] Right: Eye [employer] 01/06/2024 [id number] documented as of this [...] Discussed due to patient's condition Care Teams Local Flatbed Driver Relationship Specialty Start Date End Date Te Lassiter III, MD [address] [place] [address] PCP - General 09/06/02 documented as of this encounter
--- OUTSIDE RECORDS SUMMARY | 2023-03-17 23:09 | External Medical Summary | Summary of Care ---
Author Name Unknown Organization [facility] Address [address] [facility] [place] [address] Phone [phone] Care Team Providers Care Putty Maker Name Role Phone Maikol SHEPHERD MD, Te Pérez Primary Care Provider [phone] Reason for Visit * Reason Comments Post-Op 1 week Post OP OD. P T states "OD is getting better" Encounter Details Date Type Department Care Team Description 12/02/2022 Office Visit Ophthalmology, [facility] [address] [facility] [place] [address] Quentin Caldera MD [address] [place] [address] Epiretinal membrane (ERM) of right eye* Allergies No known active allergiesdocumented as of this encounter (statuses as of 12/02/2022) Medications Medication Sig Dispensed Refills Start Date [...] as of this encounter (statuses as of 12/02/2022) Active Problems Problem Noted Date Epiretinal membrane (ERM) of right eye 0 [...] as of this encounter (statuses as of 12/02/2022) Resolved Problems Problem Noted Date Resolved Date Mixed dyslipidemia 07/03/2006 04/21/2009 Overview: Per Lipid Taxonomy. documented as of this encounter (statuses as of 12/02/2022) Immunizations Name Administration Dates Next Due COVID-19 mRNA, LNP-s, No Pre serve, 2-Dose Series ([employer]) 02/10/2021,07/14/2020,06/16/2020 COVID-19, LNP-s, No Preserve , Popeye-sucrose, Ages 12+ (Pfizer) 12/28/2021 Covid-19, Mrna, Lnp-s, Pf, B ivalent, 30 Mcg, IM, 12 yrs and above (Pfizer) 10/20/2022,03/17/2022 Pneumococcal Conjugate Vacci ne, 20-valent ([id number]) 10/20/2021 Seasonal Influenza, Quadriva lent, No Preserve, [...] Progress Notes * Quentin Caldera MD - 12/02/2022 1:27 PM EDT [facility] [place] Nursing notes reviewed. Mood and affect: normal POST-RETINA SURGERY NOTE: HPI: Luis Whittington is a 67 year old male s/p retinal surgery. No complaints. Base Eye Exam Visual Acuity (Snellen - Linear) Right Left Dist sc 20/150 20/60 Dist ph sc NI NI Tonometry (Tonopen, 1:16 PM) Right Left Pressure 17 15 Pupils Light Shape React APD Right 3 Round Minimal None Left 3 Round Brisk None Extraocular Movement Right Left Full, Ortho Full, Ortho Neuro/Psych Oriented x3: Yes Mood/Affect: Normal Dilation Both eyes: 0.5% Proparacaine @ 1:16 PM Dilation #2 Right eye: 2.5% Phenylephrine, 1.0% Mydriacyl @ 1:16 PM Dilation #3 Right eye: 2.5% Phenylephrine, 1.0% Mydriacyl @ 1:17 PM EXTERNAL: mild periorbital ecchymosis/edema. MOTILITY: full OU SLE/DFE OD: Lids/Lashes: wnl Conjunctiva/Sclera: +mild subconj. heme, suture Cornea: clear Anterior Chamber: deep and quiet Iris: normal Lens: PCIOL Dilated fundus exam: optic nerve: no pallor/edema retina: all flat, triamcinolone, 50% air bubble A/P: 1. S/P 23G PPV/air bubble for ERM/lamellar hole OD -surgery date: 11/23/2022--Dr. Caldera -POW#1 -IOP reasonable; no infection; retina all flat -Pred forte 1 drop 4x/day until bottle is done -Patient is to f/u immediately if he develops worsening redness, eye pain, decrease in vision, nausea/vomiting, or discharge from eye, as these could be signs of an infection or increased pressure. Follow Up: Return for 1-2 months dfe oct OD. | For: 1-2 months dfe oct OD Quentin Caldera MD documented in this encounter Nursing Notes * LEBRON Boyle - 12/02/2022 1:10 PM EDT Luis Whittington is a 67 year old year old male who presents for 1 week Post OP OD. Last Office Visit: 11/24/2022 (in office), Visit date not found (telemedicine) Patient currently states "OD is getting better". Are you diabetic? No Do you drive? yes OCT image(s) of right eye acquired and filed/scanned into chart. documented in this encounter Plan of Treatment Upcoming Encounters Date Type Specialty Care Team Description 12/27/2022 Office Visit Ophthalmology Quentin Caldera MD [address] [place] [address] 05/22/2023 Office Visit Family Medicine [place] III, Te Pérez MD [address] [place] [address] Health Maintenance Due Date Last Done Comments [...] this encounter Medical Devices Implanted Type Area Boat Pilot Device Identifier Shelf Expiration Date Model / Serial / Lot Envista Intraocular Lens Implanted:Qty: 1 on 11/18/2021 by Noble Rivera MD at [facility] Right: Eye [employer] 10/05/2022 [id number] / [id number] / [id number] documented as of this encounter Visit Diagnoses Diagnosis Epiretinal membrane (ERM) of right eye- Primary documented in this encounter Care Teams Putty Maker Relationship Specialty Start Date End Date Te Lassiter III, MD [address] [place] [address] PCP - General 09/06/02 documented as of this encounter
--- OUTSIDE RECORDS SUMMARY | 2023-03-17 23:09 | External Medical Summary | Summary of Care ---
Author Name Unknown Organization [facility] Address [address] [facility] [place] [address] Phone [phone] Care Team Providers Care Forestry Support Specialist Name Role Phone Maikol SHEPHERD MD, Te Pérez Primary Care Provider [phone] Reason for Visit * Reason Onset Date Comments Call Back 12/12/2022 Encounter Details Date Type Department Care Team Description 12/12/2022 Telephone Access Center, [place] [address] [facility] *DO NOT REMOVE THIS DEPARTMENT* [place] [address] Request, External Referral Call Back Allergies No known active allergiesdocumented as of this encounter (statuses as of 12/12/2022) Medications Medication Sig Dispensed Refills Start Date End Date Status CPAP every night at bedtime . 0 Suspended Lisinopril 20 MG Oral Tablet (Prinivil)Indicat ions:HTN, goal below 140/90 Take 1 Tablet by mouth in the morning. 90 Tablet 3 09/21/2022 Suspended Additional Information metFORMIN HCl ER 500 MG Oral Tablet Extended Release 24 Hour (Glucophage XR)Indications:Pr ediabetes TAKE 3 TABLETS BY MOUTH EVERY DAY 270 Tablet 2 09/21/2022 Suspended Additional Information Lisinopril-hydroC HLOROthiazide 20-25 MG Oral TabletIndications :HTN, goal below 140/90 Take 1 Tablet by mouth in the morning. 90 Tablet 1 11/30/2022 Suspended Additional Information Atorvastatin Calcium 20 MG Oral Tablet (Lipitor)Indicati ons:Dyslipidemia, goal LDL below 130 TAKE 1 TABLET BY MOUTH EVERY DAY IN THE MORNING 90 Tablet 1 11/30/2022 Suspended Additional Information PARoxetine HCl 40 MG Oral Tablet (pAXil) TAKE 1 TABLET BY MOUTH EVERY DAY IN THE MORNING 90 Tablet 3 12/01/2022 Suspended Additional Information documented as of this encounter (statuses as of 12/12/2022) Active Problems Problem Noted Date Right retinal [...] as of this encounter (statuses as of 12/12/2022) Resolved Problems Problem Noted Date Resolved Date Mixed dyslipidemia 07/03/2006 04/21/2009 Overview: Per Lipid Taxonomy. documented as of this encounter (statuses as of 12/12/2022) Immunizations Name Administration Dates Next Due COVID-19 mRNA, LNP-s, No Pre serve, 2-Dose Series (Pfizer) 02/10/2021,07/14/2020,06/16/2020 COVID-19, LNP-s, No Preserve , Popeye-sucrose, Ages 12+ (Pfizer) 12/28/2021 Covid-19, Mrna, Lnp-s, Pf, B ivalent, 30 Mcg, IM, 12 yrs and above (Pfizer) 10/20/2022,03/17/2022 Pneumococcal Conjugate Vacci ne, 20-valent ([id number]) 10/20/2021 Seasonal Influenza, Quadriva lent, No Preserve, [...] encounter Miscellaneous Notes * Telephone Encounter - Dilip Rueda RN - 12/12/2022 9:06 AM EDT Spoke to patient according to him half of his vision in his right eye is distorted. Offered Monday here in [facility] with Dr. Caldera but patient decline. Opted to be seen DIALLO. Informed we don't have any Retina specialist until Monday here in [facility]. Gave phone number of [facility], and forward patient concern to [place] Nurse pool. Advise patient to give me a call for any concerns and questions. Dilip Rueda RN 12/12/2022 9:09 AM * Telephone Encounter - MORIS Hooks - 12/12/2022 8:09 AM EDT Good Morning This pt states that about he started with vision loss in right eye. Now pt is stating thathe cannot see fully out of eye round / rectangle like shadow in vision. Looks like shards of glass around it. Pt wants to see about getting an urgent appt only in [place] Is this possible documented in this encounter Plan of Treatment Upcoming Encounters Date Type Specialty Care Team Description 12/27/2022 Office Visit Ophthalmology Quentin Caldera MD [address] [place] [address] 05/22/2023 Office Visit Family Medicine Maikol IIITe MD [address] [place] [address] Scheduled Procedures Name Priority Associated Diagnoses Date/Ti me REPAIR RETINAL DETACHMENT WITH VITRECTOMY Total retinal detachment of right eye 12/12/2022 1:17 PM EDT Health Maintenance Due Date Last Done Comments Cologuard 01/15/2001 Fecal Occult Blood Test 01/15/2001 Sigmoidoscopy 01/15/2001 Influenza Vaccine (FLU shot) (#1) 2023 02/27/2020, 04/17/2019, 04/17/2018, Additional history exists Depression Screening, Annual for Pts 12 and Over 11/12/2023 11/11/2022 GFR 11/13/2023 11/12/2022, 042 , [...] this encounter Medical Devices Implanted Type Area Financial Services Assistant Device Identifier Shelf Expiration Date Model / Serial / Lot Envista Intraocular Lens Implanted:Qty: 1 on 11/18/2021 by Noble Rivera MD at OR [facility] Right: Eye [employer] 10/05/2022 [id number] / [id number] / [id number] documented as of this encounter Care Teams Forestry Support Specialist Relationship Specialty Start Date End Date Te Lassiter III, MD [address] [facility] [place] [address] PCP - General 09/06/02 documented as of this encounter
--- OUTSIDE RECORDS SUMMARY | 2023-03-17 23:09 | External Medical Summary | Summary of Care ---
Author Name Unknown Organization [facility] Address [address] [facility] [address] Phone [phone] Care Team Providers Care Lapping Machine Operator Name Role Phone Maikol SHEPHERD MD, John E Primary Care Provider [phone] Reason for Visit * Reason Onset Date Comments Medication Refill 11/29/2022 Encounter Details Date Type Department Care Team Description 11/29/2022 Refill Family Practice [facility] [place] [place] [address] [facility] [place] [address] Camille Maradiaga III, MD [address] [facility] [address] HTN, goal below 140/90; Dyslipidemia, goal LDL below 130 Allergies No known active allergiesdocumented as of this encounter (statuses as of 11/30/2022) Medications Medication Sig Dispensed Refills Start Date End Date Status PARoxetine HCl 40 MG Oral Tablet (pAXil) Take by mouth 1 Tablet in the morning. 90 Tablet 3 09/08/2021 Active CPAP every night at bedtime . 0 [...] THE MORNING 90 Tablet 1 11/30/2022 Active Lisinopril-hydroC HLOROthiazide 20-25 MG Oral TabletIndications :HTN, goal below 140/90 TAKE 1 TABLET BY MOUTH EVERY DAY 90 Tablet 3 11/23/2021 11/29/2022 Discontinued (Refill) Atorvastatin Calcium 20 MG Oral Tablet (Lipitor)Indicati ons:Dyslipidemia, goal LDL below 130 TAKE 1 TABLET BY MOUTH EVERY DAY IN THE MORNING 90 Tablet 1 11/18/2022 11/29/2022 Discontinued (Refill) documented as of this encounter (statuses as of 11/30/2022) Active Problems Problem Noted Date Epiretinal membrane [...] as of this encounter (statuses as of 11/30/2022) Resolved Problems Problem Noted Date Resolved Date Mixed dyslipidemia 07/03/2006 04/21/2009 Overview: Per Lipid Taxonomy. documented as of this encounter (statuses as of 11/30/2022) Immunizations Name Administration Dates Next Due COVID-19 mRNA, LNP-s, No Pre serve, 2-Dose Series ([employer]) 02/10/2021,07/14/2020,06/16/2020 COVID-19, LNP-s, No Preserve , Popeye-sucrose, Ages 12+ (Pfizer) 12/28/2021 Covid-19, Mrna, Lnp-s, Pf, B ivalent, 30 Mcg, IM, 12 yrs and above (Pfizer) 10/20/2022,03/17/2022 Pneumococcal Conjugate Vacci ne, 20-valent ([id number]) 10/20/2021 Seasonal Influenza, Quadriva lent, No Preserve, [...] encounter Miscellaneous Notes * Telephone Encounter - Elsa Fatima, [facility] - 11/30/2022 9:50 AM EDT Signed Prescriptions: Disp Refills Lisinopril-hydroCHLOROthiazide 20-25 MG Or*90 Tab*1 Sig: Take 1Tablet by mouth in the morning.Authorizing Provider: CAMILLE MARADIAGA III User: ELSA FATIMA Atorvastatin Calcium 20 MG Oral Tablet (Li*90 Tab*1 Sig: TAKE 1 TABLET BY MOUTH EVERY DAY IN THE MORNINGAuthorizing Provider: CAMILLE MARADIAGA III User: ELSA FATIMA documented in this encounter Plan of Treatment Upcoming Encounters Date Type Specialty Care Team Description 12/02/2022 Office Visit Ophthalmology Quentin Caldera MD [address] [facility] [address] [place] [address] 05/22/2023 Office Visit Family Medicine Camille Maradiaga III, MD [address] [place] [address] Health Maintenance Due Date Last Done Comments [...] this encounter Medical Devices Implanted Type Area Icu Tech Device Identifier Shelf Expiration Date Model / Serial / Lot Envista Intraocular Lens Implanted:Qty: 1 on 11/18/2021 by Noble Rivera MD at OR [facility] Right: Eye [employer] 10/05/2022 [id number] / [id number] / [id number] documented as of this encounter Visit Diagnoses Diagnosis HTN, goal below 140/90 Unspecified essential hypertension Dyslipidemia, goal LDL below 130 Other and unspecified hyperlipidemia documented in this encounter Care Teams Lapping Machine Operator Relationship Specialty Start Date End Date Camille Maradiaga III, MD [address] [place] [address] PCP - General 09/06/02 documented as of this encounter
--- OUTSIDE RECORDS SUMMARY | 2023-03-17 23:09 | External Medical Summary | Summary of Care ---
Author Name Unknown Organization [facility] Address [address] [place] [address] Phone [phone] Care Team Providers Care Senior Contract Specialist Name Role Phone Maikol SHEPHERD MD, John E Primary Care Provider [phone] Reason for Visit * Reason Comments eRx-Medication Refill Encounter Details Date Type Department Care Team Description 11/30/2022 Refill Family Practice [facility] [address] [place] [address] Te Lassiter III, MD [address] [facility] [address] HTN, goal below 140/90 Allergies No known active allergiesdocumented as of this encounter (statuses as of 12/01/2022) Medications Medication Sig Dispensed Refills Start Date [...] THE MORNING 90 Tablet 1 11/30/2022 Active documented as of this encounter (statuses as of 12/01/2022) Active Problems Problem Noted Date Epiretinal membrane [...] as of this encounter (statuses as of 12/01/2022) Resolved Problems Problem Noted Date Resolved Date Mixed dyslipidemia 07/03/2006 04/21/2009 Overview: Per Lipid Taxonomy. documented as of this encounter (statuses as of 12/01/2022) Immunizations Name Administration Dates Next Due COVID-19 mRNA, LNP-s, No Pre serve, 2-Dose Series ([employer]) 02/10/2021,07/14/2020,06/16/2020 COVID-19, LNP-s, No Preserve , Popeye-sucrose, Ages 12+ (Pfizer) 12/28/2021 Covid-19, Mrna, Lnp-s, Pf, B ivalent, 30 Mcg, IM, 12 yrs and above (Pfizer) 10/20/2022,03/17/2022 Pneumococcal Conjugate Vacci ne, 20-valent ([id number]) 10/20/2021 Seasonal Influenza, Quadriva lent, No Preserve, [...] Miscellaneous Notes * Telephone Encounter - Thad Arrieta RPh - 12/01/2022 10:40 AM EDTRefused Prescriptions: Disp Refills Lisinopril-hydroCHLOROthiazide 20-25 MG Or*90 Tab*3 Sig: TAKE 1TABLET BY MOUTH EVERY DAYRefused By: THAD ARRIETA for Refusal: Duplicate Request------- documented in this encounter Plan of Treatment Upcoming Encounters Date Type Specialty Care Team Description 12/02/2022 Office Visit Ophthalmology Quentin Caldera MD [address] [place] [address] 05/22/2023 Office Visit Family Medicine Te Lassiter III, MD [address] [place] [address] Health Maintenance Due Date Last Done Comments [...] this encounter Medical Devices Implanted Type Area Sheriff Deputy Device Identifier Shelf Expiration Date Model / Serial / Lot Envista Intraocular Lens Implanted:Qty: 1 on 11/18/2021 by Noble Rivera MD at [facility] Right: Eye [employer] 10/05/2022 [id number] / [id number] / [id number] documented as of this encounter Visit Diagnoses Diagnosis HTN, goal below 140/90 Unspecified essential hypertension documented in this encounter Care Teams Senior Contract Specialist Relationship Specialty Start Date End Date Te Lassiter III, MD [address] [facility] [address] PCP - General 09/06/02 documented as of this encounter
--- OUTSIDE RECORDS SUMMARY | 2023-03-17 23:09 | External Medical Summary | Summary of Care ---
Author Name Unknown Organization [facility] Address [address] [facility] [place] [address] Phone [phone] Care Team Providers Care Dye Box Operator Name Role Phone Maikol SHEPHERD MD, Te Pérez Primary Care Provider [phone] Reason for Visit * Reason Comments Post-Op Vitrectomy OD, Dr. Gini leos 11/23/22 Encounter Details Date Type Department Care Team Description 11/24/2022 Office Visit Ophthalmology, [facility] [address] [place] [address] Kendall Fernandez, [address] [place] [address] Epiretinal membrane (ERM) of right eye* Allergies No known active allergiesdocumented as of this encounter (statuses as of 11/24/2022) Medications Medication Sig Dispensed Refills Start Date End Date Status PARoxetine HCl 40 MG Oral Tablet (pAXil) Take by mouth 1 Tablet in the morning. 90 Tablet 3 09/08/2021 Active CPAP every night at bedtime . 0 Active Lisinopril-hydroCHLO ROthiazide 20-25 MG Oral TabletIndications:HT N, goal below 140/90 TAKE 1 TABLET BY MOUTH EVERY DAY 90 Tablet 3 11/23/2021 Active Lisinopril 20 MG Oral Tablet (Prinivil)Indication s:HTN, goal below 140/90 Take 1 Tablet by mouth in the morning. 90 Tablet 3 09/21/2022 Active metFORMIN HCl ER 500 MG Oral Tablet Extended Release 24 Hour (Glucophage XR)Indications:Predi abetes TAKE 3 TABLETS BY MOUTH EVERY DAY 270 Tablet 2 09/21/2022 Active Atorvastatin Calcium 20 MG Oral Tablet (Lipitor)Indications :Dyslipidemia, goal LDL below 130 TAKE 1 TABLET BY MOUTH EVERY DAY IN THE MORNING 90 Tablet 1 11/18/2022 Active documented as of this encounter (statuses as of 11/24/2022) Active Problems Problem Noted Date Epiretinal membrane [...] as of this encounter (statuses as of 11/24/2022) Resolved Problems Problem Noted Date Resolved Date Mixed dyslipidemia 07/03/2006 04/21/2009 Overview: Per Lipid Taxonomy. documented as of this encounter (statuses as of 11/24/2022) Immunizations Name Administration Dates Next Due COVID-19 mRNA, LNP-s, No Pre serve, 2-Dose Series ([employer]) 02/10/2021,07/14/2020,06/16/2020 COVID-19, LNP-s, No Preserve , Popeye-sucrose, Ages 12+ (Pfizer) 12/28/2021 Covid-19, Mrna, Lnp-s, Pf, B ivalent, 30 Mcg, IM, 12 yrs and above ([employer]) 10/20/2022,03/17/2022 Pneumococcal Conjugate Vacci ne, 20-valent ([id number]) 10/20/2021 Seasonal Influenza, Quadriva lent, No Preserve, [...] Progress Notes * Kendall Fernandez DO - 11/24/2022 8:45 AM EDT [facility]IN [facility]ON[facility] [place] Nursing notes reviewed. Mood and affect: normal POST-RETINA SURGERY NOTE: HPI: Luis Whittington is a 67 year old male s/p retinal surgery. No complaints. Base Eye Exam Visual Acuity (Snellen - Linear) Right Left Dist sc 20/200 20/40 +2 Dist ph sc ni ni Tonometry (Tonopen, 8:52 AM) Right Left Pressure 9 15 Pupils Pupils Light Shape React APD Right PERRL 4 Round Slow None Left PERRL 3 Round Brisk None Visual Chavez (Counting fingers) Right Left Full Restrictions Partial outer superior temporal, inferior temporal, inferior nasal deficiencies Extraocular Movement Right Left Full Full Neuro/Psych Oriented x3: Yes Dilation Both eyes: 0.5% Proparacaine @ 8:52 AM Dilation #3 Right eye: 1.0% Mydriacyl, 2.5% Phenylephrine @ 8:52 AM Dilation Comments Patient cautioned that effects of dilation may last 2-7 hours dependant upon individual reaction. It was discussed that driving while dilated is not recommended. EXTERNAL: mild periorbital ecchymosis/edema. MOTILITY: full OU SLE/DFE OD: Lids/Lashes: wnl Conjunctiva/Sclera: +mild subconj. heme, suture Cornea: clear Anterior Chamber: deep and trace cell/flare Iris: normal Lens: PCIOL Dilated fundus exam: optic nerve: no pallor/edema retina: all flat, triamcinolone, 50% air bubble A/P: 1. S/P 23G PPV/air bubble for ERM/lamellar hole OD -surgery date: 11/23/2022--Dr. Caldera -POD#1 -IOP reasonable; no infection; retina all flat -Abx 1 [...] Bracelet in place until gas resolved -Continue No lying on back until gas/air resolved -Eye shield on while sleeping for 1 week -Patient is to f/u immediately if he develops worsening redness, eye pain, decrease in vision, nausea/vomiting, or discharge from eye, as these could be signs of an infection or increased pressure. F/u 1 week or sooner if problems Kendall Fernandez DO CC: Quentin Caldera MD documented in this encounter Nursing Notes * Dilip Rueda RN - 11/24/2022 8:54 AM EDT Luis Whittington is a 67 year old year old male who presents for Vitretomy OD. Last Office Visit: 03/18/2022 (in office), Visit date not found (telemedicine) Patient currently states no change in vision. Are you diabetic? No Do you drive? no documented in this encounter Plan of Treatment Upcoming Encounters Date Type Specialty Care Team Description 12/02/2022 Office Visit Ophthalmology Quentin Caldera MD [address] [place] [address] 05/22/2023 Office Visit Family Medicine Maikol III, Te Pérez MD [address] [facility] [place] [address] Health Maintenance Due Date Last Done Comments [...] this encounter Medical Devices Implanted Type Area Watcher Automat Long Goods Device Identifier Shelf Expiration Date Model / Serial / Lot Envista Intraocular Lens Implanted:Qty: 1 on 11/18/2021 by Noble Rivera MD at [facility] Right: Eye [employer]OM[employer] 10/05/2022 [id number] / [id number] / [id number] documented as of this encounter Visit Diagnoses Diagnosis Epiretinal membrane (ERM) of right eye- Primary documented in this encounter Care Teams Dye Box Operator Relationship Specialty Start Date End Date Te Lassiter III, MD [address] [place] [address], [place] [address] PCP - General 09/06/02 documented as of this encounter
--- OUTSIDE RECORDS SUMMARY | 2023-03-17 23:09 | External Medical Summary | Summary of Care ---
Author Name Unknown Organization [facility] Address [address] [place] [address] Phone [phone] Care Team Providers Care Sweater Designer Name Role Phone Maikol SHEPHERD MD, John E Primary Care Provider [phone] Reason for Visit * Reason Comments eRx-Medication Refill Encounter Details Date Type Department Care Team Description 12/01/2022 Refill Family Practice [facility] [place] [address] Camille Maradigaa III, MD [address] [place] [address] Allergies No known active allergiesdocumented as of [...] THE MORNING 90 Tablet 3 12/01/2022 Active PARoxetine HCl 40 MG Oral Tablet (pAXil) Take by mouth 1 Tablet in the morning. 90 Tablet 3 09/08/2021 12/01/2022 Discontinued documented as of this encounter (statuses as [...] mRNA, LNP-s, No Pre serve, 2-Dose Series ([employer]) 02/10/2021,07/14/2020,06/16/2020 COVID-19, LNP-s, No Preserve , Popeye-sucrose, Ages 12+ ([employer]) 12/28/2021 Covid-19, Mrna, Lnp-s, Pf, B ivalent, 30 Mcg, IM, 12 yrs and above ([employer]) 10/20/2022,03/17/2022 Pneumococcal Conjugate Vacci ne, 20-valent ([id number]) 10/20/2021 Seasonal Influenza, Quadriva lent, No Preserve, [...] encounter Miscellaneous Notes * Telephone Encounter - Ana Braga [facility] - 12/01/2022 3:10 PM EDT Signed Prescriptions: Disp Refills PARoxetine HCl 40 MG Oral Tablet (pAXil) 90 Tab*3 Sig: TAKE 1 TABLET BY MOUTH EVERY DAY IN THE MORNINGAuthorizing Provider: CAMILLE MARADIAGA III User: ANA BRAGA documented in this encounter Plan of Treatment Upcoming Encounters Date Type Specialty Care Team Description 12/02/2022 Office Visit Ophthalmology Quentin Caldera MD [address] [place] [address] 05/22/2023 Office Visit Family Medicine Chugach III, Camille Pérez MD [address] [facility] [place] [address] Health Maintenance Due Date Last Done Comments [...] this encounter Medical Devices Implanted Type Area Electromechanical Assembly Technician Device Identifier Shelf Expiration Date Model / Serial / Lot Envista Intraocular Lens Implanted:Qty: 1 on 11/18/2021 by Noble Rivera MD at [facility] Right: Eye [employer]OM[employer] 10/05/2022 [id number] / [id number] / [id number] documented as of this encounter Care Teams Sweater Designer Relationship Specialty Start Date End Date Chugach III, Camille Pérez MD [address] [place] [address] PCP - General 09/06/02 documented as of this encounter
--- OUTSIDE RECORDS SUMMARY | 2023-03-17 23:09 | External Medical Summary | Summary of Care ---
Author Name Unknown Organization [facility] Address [address] [place] [address] Phone [phone] Care Team Providers Care Vocal Performer Name Role Phone Maikol SHEPHERD MD, Te Pérez Primary Care Provider [phone] Encounter Details Date Type Department Care Team Description 12/10/2022 Telephone [facility] [address] [place], [place] [id number] Lashanda Aguirre MD [address] [place], [place] [id number] Allergies No known active allergiesdocumented as of this encounter (statuses as of 12/10/2022) Medications Medication Sig Dispensed Refills Start Date [...] as of this encounter (statuses as of 12/10/2022) Active Problems Problem Noted Date Epiretinal membrane [...] as of this encounter (statuses as of 12/10/2022) Resolved Problems Problem Noted Date Resolved Date Mixed dyslipidemia 07/03/2006 04/21/2009 Overview: Per Lipid Taxonomy. documented as of this encounter (statuses as of 12/10/2022) Immunizations Name Administration Dates Next Due COVID-19 mRNA, LNP-s, No Pre serve, 2-Dose Series ([employer]) 02/10/2021,07/14/2020,06/16/2020 COVID-19, LNP-s, No Preserve , Popeye-sucrose, Ages 12+ (Pfizer) 12/28/2021 Covid-19, Mrna, Lnp-s, Pf, B ivalent, 30 Mcg, IM, 12 yrs and above (Pfizer) 10/20/2022,03/17/2022 Pneumococcal Conjugate Vacci ne, 20-valent ([id number]) 10/20/2021 Seasonal Influenza, Quadriva lent, No Preserve, [...] encounter Miscellaneous Notes * Telephone Encounter - Lashanda Aguirre MD - 12/10/2022 5:04 PM EDT Received page from patient. Had PPV/air bubble for ERM/amellar hole OD with Dr. Caldera on 11/23. Patient states the last 4 days he has noticed a "V" in his vision OD when he looks to the right. This is not present all the time, but is there intermittently. Denies floaters or flashes. Denies loss of peripheral vision. Denies pain. Was last seen by Dr. Caldera on 12/02 and has follow-up scheduled 12/27. Spoke with on-call retina provider Dr. Augustine and symptoms at this time do not warrant urgent evaluation in [place] as patient lives in [place]. Will forward patient's symptoms onto Dr. Fernandez and Dr. Caldera regarding any sooner follow-up they may recommend prior to already scheduled appt. Patient expressed understanding and had no further questions. documented in this encounter Plan of Treatment Upcoming Encounters Date Type Specialty Care Team Description 12/27/2022 Office Visit Ophthalmology Quentin Caldera MD [address] [place] [address] 05/22/2023 Office Visit Family Medicine Maikol III, Te Pérez MD 200 [facility] [place] [address] Health Maintenance Due Date Last Done Comments [...] this encounter Medical Devices Implanted Type Area Beta Tester Device Identifier Shelf Expiration Date Model / Serial / Lot Envista Intraocular Lens Implanted:Qty: 1 on 11/18/2021 by Noble Rivera MD at [facility] Right: Eye [employer] 10/05/2022 [id number] / [id number] / [id number] documented as of this encounter Care Teams Vocal Performer Relationship Specialty Start Date End Date Te Lassiter III, MD [address] [place] [address], [place] [address] PCP - General 09/06/02 documented as of this encounter
--- OUTSIDE RECORDS SUMMARY | 2023-03-17 23:09 | External Medical Summary | Summary of Care ---
Author Name Unknown Organization [facility] Address [address] [place] [facility] [place] [address] Phone [phone] Care Team Providers Care Ship Pilot Dispatcher Name Role Phone Maikol SHEPHERD MD, Te Pérez Primary Care Provider [phone] Reason for Visit * Reason Comments Follow Up " This morning I can see a almost "L" shape grayish in color" Encounter Details Date Type Department Care Team Description 12/12/2022 [facility] [address] [place] [address] [place] [address] [place] [address] Follow Up (" This morning I can see a almo... Allergies No known active allergiesdocumented as of [...] mRNA, LNP-s, No Pre serve, 2-Dose Series ([employer]) 02/10/2021,07/14/2020,06/16/2020 COVID-19, LNP-s, No Preserve , Popeye-sucrose, Ages 12+ (Pfizer) 12/28/2021 Covid-19, Mrna, Lnp-s, Pf, B ivalent, 30 Mcg, IM, 12 yrs and above ([employer]) 10/20/2022,03/17/2022 Pneumococcal Conjugate Vacci ne, 20-valent ([id number]) 10/20/2021 Seasonal Influenza, Quadriva lent, No Preserve, [...] on file documented as of this encounter Nursing Notes * Dilip Rueda RN - 12/12/2022 10:[address] Caldera spoke to the patient thru the phone (nurses station). Patient has detach retina and needs surgery. Dr. Caldera facilitate the surgery schedule for this afternoon. Patient on the way to [place] * Dilip Rueda RN - 12/12/2022 10:15 AM EDT Spoke with Dr. Caldera, ordered to dilate patient and get Fundus photo and OCT OD. He will look into the [facility] and will speak to the patient thru phone documented in this encounter Plan of Treatment Upcoming Encounters Date Type Specialty Care Team Description 12/27/2022 Office Visit Ophthalmology Quentin Caldera MD [address] [place] [address] 05/22/2023 Office Visit Family Medicine [place] IIITe MD [address] [place] [address] Scheduled Procedures Name Priority Associated Diagnoses Date/Ti me REPAIR RETINAL DETACHMENT WITH VITRECTOMY Total retinal detachment of right eye 12/12/2022 1:18 PM EDT Health Maintenance Due Date Last [...] this encounter Medical Devices Implanted Type Area Blender / Cook Device Identifier Shelf Expiration Date Model / Serial / Lot Envista Intraocular Lens Implanted:Qty: 1 on 11/18/2021 by Noble Rivera MD at [facility] Right: Eye [employer]OMB 10/05/2022 [id number] / [id number] / [id number] documented as of this encounter Visit Diagnoses Diagnosis Epiretinal membrane (ERM) of right eye- Primary documented in this encounter Care Teams Ship Pilot Dispatcher Relationship Specialty Start Date End Date Te Lassiter III, MD [address] [place] [address] PCP - General 09/06/02 documented as of this encounter
--- OUTSIDE RECORDS SUMMARY | 2023-03-17 23:10 | External Medical Summary | Summary of Care ---
Author Name Unknown Organization [facility] Address [address] [place] [address] Phone [phone] Care Team Providers Care Video Games Mechanic Name Role Phone Maikol SHEPHERD MD, John E Primary Care Provider [phone] Reason for Visit * Reason Onset Date Comments Other 11/16/2022 Encounter Details Date Type Department Care Team Description 11/16/2022 Telephone Family Practice [facility] [address] [facility] [place] [address] Te Lassiter III, MD [address] [place] [address] Other Allergies No known active allergiesdocumented as of this encounter (statuses as of 11/17/2022) Medications Medication Sig Dispensed Refills Start Date [...] Tablet (Lipitor)Indications :Dyslipidemia, goal LDL below 130 Take 1 Tablet by mouth in the morning. 90 Tablet 1 09/21/2022 Active documented as of this encounter (statuses as of 11/17/2022) Active Problems Problem Noted Date Prediabetes 06/20/2017 Overview: Per Prediabetes protocol #1 [...] as of this encounter (statuses as of 11/17/2022) Resolved Problems Problem Noted Date Resolved Date Mixed dyslipidemia 07/03/2006 04/21/2009 Overview: Per Lipid Taxonomy. documented as of this encounter (statuses as of 11/17/2022) Immunizations Name Administration Dates Next Due COVID-19 mRNA, LNP-s, No Pre serve, 2-Dose Series ([employer]) 02/10/2021,07/14/2020,06/16/2020 COVID-19, LNP-s, No Preserve , Popeye-sucrose, Ages 12+ (Pfizer) 12/28/2021 Covid-19, Mrna, Lnp-s, Pf, B ivalent, 30 Mcg, IM, 12 yrs and above (Pfizer) 10/20/2022,03/17/2022 Pneumococcal Conjugate Vacci ne, 20-valent ([id number]) 10/20/2021 Seasonal Influenza, Quadriva lent, No Preserve, [...] encounter Miscellaneous Notes * Telephone Encounter - Sanam Kumar LPN - 11/17/2022 8:58 AM EDT Provider to address: Te Lassiter III, MD Reason for Call: Other Contact: Telephone Call Contact Type: Information Outcome: Patient is aware and verbalizes understanding. Total Time including non face to face (minutes): 5 * Telephone Encounter - Claudia Soriano, MED ASSIST - 11/16/2022 6:24 PM EDT Provider to address: Microalbumin Reason for Call: Other Contact: Telephone Call Contact Type: Orders Outcome: Left message for the patient to call the office. Upon return call please transfer to a dedicated telephone nurse. The order was for a microalbumin Total Time including non face to face (minutes): 5 * Telephone Encounter - PETER Montilla - 11/16/2022 9:53 AM EDT Pt requesting a rukhsana back from DR Office. Pt stated he had an issue with a urine tests that was scheduled and needs DR to send new orders. PT would like to speak with DR office before they send new orders. Please contact pt at [phone]. Thank You, Gilberto Fritz [facility] Sales Office Assistant II [facility] (Formerly Telepharmacy) 11/16/2022, 9:55 AM documented in this encounter Plan of Treatment Upcoming Encounters Date Type Specialty Care Team Description 11/23/2022 Hospital Encounter Surgery Quentin Caldera MD [address] [facility] [address] [place] [address] 11/23/2022 Surgery Surgery Quentin Caldera MD [address] [place] [address] RIGHT VITRECTOMY MECHANICAL PARS PLANA APPROACH REMOVAL OF PRERETINAL CELLULAR MEMBRANE 05/22/2023 Office Visit Family Medicine Te Lassiter III, MD [address] [facility] [place] [address] Scheduled Procedures Name Priority Associated Diagnoses Date/Ti me VITRECTOMY MECHANICAL PARS PLANA APPROACH REMOVAL OF PRERETINAL CELLULAR MEMBRANE Epiretinal membrane, right eye 11/23/2022 8:00 AM EDT Health Maintenance Due Date Last Done Comments Albumin/Creatinine Ratio 01/15/1974 Cologuard 01/15/2001 Fecal Occult Blood Test 01/15/2001 Sigmoidoscopy 01/15/2001 Influenza Vaccine (FLU shot) (#1) 2023 02/27/2020, 04/17/2019, 04/17/2018, Additional history exists Depression Screening, Annual for Pts 12 and Over 11/12/2023 11/11/2022 GFR 11/13/2023 11/12/2022, 08/07, 10/12/2020, Additional history exists HbA1c 11/13/2023 11/12/2022, 08/07, 04/16/2019, Additional history exists Colonoscopy 07/14/2025 07/15/2015, 09/2009, 09/09/2008 Colorectal Cancer Screening 07/14/2025 Lipid Panel 11/13/2027 11/12/2022, 060 11/2020, 04/16/2019, [...] this encounter Medical Devices Implanted Type Area Tool Crib Manager Device Identifier Shelf Expiration Date Model / Serial / Lot Envista Intraocular Lens Implanted:Qty: 1 on 11/18/2021 by Noble Rivera MD at OR [facility] Right: Eye [employer]OM[employer] 10/05/2022 [id number] / [id number] / [id number] documented as of this encounter Care Teams Video Games Mechanic Relationship Specialty Start Date End Date Te Lassiter III, MD [address] [place] [address], [place] [address] PCP - General 09/06/02 documented as of this encounter
--- OUTSIDE RECORDS SUMMARY | 2023-03-17 23:10 | External Medical Summary | Summary of Care ---
Author Name Unknown Organization [facility] Address [address] [facility] [facility] [place] [address] Phone [phone] Care Team Providers Care Wallpaper Printer Helper Name Role Phone Maikol SHEPHERD MD, Te Pérez Primary Care Provider [phone] Reason for Visit * Auth/Cert Specialty Diagnoses / Procedures Referred By Enriqueta vincent Referred To Contact Diagnoses Epiretinal membrane, right eye Epiretinal membrane, right eye [H35.371] Procedures VITRECTOMY W/ REMOVE OF EPIRETINAL MEMBRANE RIGHT VITRECTOMY MECHANICAL PARS PLANA APPROACH REMOVAL OF PRERETINAL CELLULAR MEMBRANE Referral ID Status Reason Start Date Expiration Date Visits Re quested Visits Authorized [id number] Encounter Details Date Type Department Care Team Description 11/23/2022 Hospital Encounter OR [facility], Operating Room, [facility] 3rd Floor [address] [place] [address] Quentin Caldera MD [address] [address] Allergies No known active allergiesdocumented as of this encounter (statuses as of 11/24/2022) Medications Medication Sig Dispensed Refills Start Date End Date Status PARoxetine HCl 40 MG Oral Tablet (pAXil) Take by mouth 1 Tablet in the morning. 90 Tablet 3 09/08/2021 Active CPAP every night at bedtime . 0 Active Lisinopril-hydroC HLOROthiazide 20-25 MG Oral TabletIndications :HTN, goal below 140/90 TAKE 1 TABLET BY MOUTH EVERY DAY 90 Tablet 3 11/23/2021 Active Lisinopril 20 MG Oral Tablet (Prinivil)Indicat [...] THE MORNING 90 Tablet 1 11/18/2022 Active Cyanocobalamin 1000 MCG Oral Tablet (Cyanocobalamin) Take 1 Tab by mouth daily. 100 Tab 3 10/14/2020 11/11/2022 Discontinued Atorvastatin Calcium 20 MG Oral Tablet (Lipitor)Indicati ons:Dyslipidemia, goal LDL below 130 Take 1 Tablet by mouth in the morning. 90 Tablet 1 09/21/2022 11/18/2022 Discontinued documented as of this encounter (statuses [...] (Pfizer) 10/20/2022,03/17/2022 Pneumococcal Conjugate Vacci ne, 20-valent ([id number]) 10/20/2021 Seasonal Influenza, Quadriva lent, No Preserve, [...] Sign Reading Time Taken Comments Blood Pressure 125/68 11/23/2022 12:10 PM EDT Pulse 57 11/23/2022 12:10 PM EDT Temperature 36 C (96.8 F) 11/23/2022 11:52 AM EDT Respiratory Rate 13 11/23/2022 12:10 PM EDT Oxygen Saturation 97% 11/23/2022 12:10 PM EDT Inhaled Oxygen Concentration - - Weight - - Height - - Body Mass Index - - documented in this encounter Discharge Instructions * Discharge Instr - AVS* Quentin Caldera MD - 11/23/2022 11:52 AM EDT Please contact your physician at [phone] with any concerns or questions. After 5:00 p.m. or onthe weekend, call the [facility] Emergency Room at and ask for the newsroom intern manager business operations.Scheduling Services is available daily between the hours of 8:00 a.m. and 9:00 p.m. by calling . Your attending physician at the time of your discharge was: Quentin Caldera MD [address] [facility] [address] [place] [address] The information below provides you with the [...] No Driving. Follow Up - Return appointment(s): 845 at [facility] with Dr. Fernandez Special Instructions: Please keep your eyes looking down at the floor during the day with a 10 minute break every hour and sleep on your left side. Starting tomorrow just avoid flat on your back until the air bubble is gone HOME INSTRUCTIONS AFTER RETINAL OR VITREOUS SURGERY [...] DO NOT HESITATE TO CALL US AT [phone] AT ANY TIME After 5:00 p.m. or on the weekend, call the [facility] Emergency Room at and ask for the newsroom intern manager business operations. documented in this encounter Progress Notes * Quentin Caldera MD - 11/23/2022 11:50 AM EDT Discharge Summary Patient Active Problem List Diagnosis Code Family history of other cardiovascular diseases Z82.49 Abdominal or pelvic swelling, mass, or lump, other specified site R19.09 Dyslipidemia, goal LDL below 130 E78.5 HTN, goal below 140/90 I10 Mild obstructive sleep apnea G47.33 Dysphagia R13.10 Impacted cerumen of left ear H61.22 Prediabetes R73.03 Epiretinal membrane (ERM) of right eye H35.371 Surgery: right eye PPV/MP Pt examined and medically cleared for discharge Quentin Caldera MD 11/23/2022 11:50 AM documented in this encounter H&P Notes * Quentin Caldera MD - 11/23/2022 10:45 AM EDT HISTORY & PHYSICAL INTERVAL NOTE [facility] [address] [facility] [address] History and Physical Update: Name: Luis Whittington Location: OR [facility]/OR Date: 11/23/2022 Time: 10:45 AM DATE OF HISTORY AND PHYSICAL: 11/11/22 BP: 132 mmHg/80 mmHg (11/23/22919) Pulse: 59 (11/23/22919) Temp: 36.11 C (11/23/22919) Resp: 13 (11/23/22919) SpO2: 95 % (11/23/22919) I have reviewed the H&P previously performed and examined the patient today. There are no new findings noted. right eye today * Quentin Caldera MD - 11/23/2022 10:44 AM EDT 11/11/22 Luis Whittington is a 67 year old male. Chief Complaint Patient presents with Physical-Exam Pt stated that he is here for a physical exam HPI: Preoperative consultation from planned right vitrectomy for epiretinal membrane saw dentist no hearing concerns no swallowing difficulties no exertional chest pain or shortness a breath no change in bowels melena or gross bleeding no dysuria or hematuria no lumps or swelling in the groin area PMH: Patient Active Problem List Diagnosis Code [...] DIAGNOSTIC (RECTUM) 07/15/2015 submucosal mass - appendicieal orifice/[facility], FLEXIBLE, DIAGNOSTIC 05/26/11 wnl MISCELLANEOUS ORDER ([facility] ONLY) ACT 112 SIGNED, Dr. Fernandez (12-06-2018) REMOVAL OF APPENDIX REMOVE CATARACT, INSERT LENS PROSTH Right 11/18/2021 right EXTRACAPSULAR CATARACT REMOVAL WITH INTRAOCULAR LENS performed by Noble Rivera MD at OR [facility]PA[facility] INITIAL INGUINAL HERNIA REDUCIBLE AGE 6 [...] PLAN: Patient acceptable risk for planned procedure form completion aviation private check comprehensive metabolic panel lipids A1c Follow up in 6 month(s). Te Lassiter III, MD documented in this encounter Nursing Notes * Hollie Gregory RN - 11/16/2022 10:24 AM EDT PREOP PATIENT INFORMATION AND EDUCATION: MEDICATION INSTRUCTIONS: The day of surgery/procedure, you may TAKE the following medications with a sip of water up to 2 hours prior to your arrival time: None Please follow surgeon's instructions regarding use of Aspirin, Coumadin, Plavix, Eliquis, and any other blood thinner including NSAIDs (non-steroidal anti-inflammatory drugs, eg, Advil, Ibuprofen,Motrin, Aleve, Naproxen). 10 days prior to surgery/procedure Stop all Herbal supplements, Green Tea, Turmeric, Melatonin, CBD, THC, etc. Stop all Vitamins (including Vitamin E) 24 hours prior to surgery/procedure DO NOT consume any alcohol. DO NOT use medical marijuana. DO NOT smoke or use tobacco products of any kind after midnight prior to surgery. *Using any of these products may increase your risks of procedural complications. IF IT IS LESS THAN RECOMMENDED STOPPAGE TIME PLEASE STOP AT TIME OF NOTIFICATION. FASTING RECOMMENDATIONS: To reduce risk, it is important for all elective surgery patients to follow the specific fasting guidelines listed below. DO NOT EAT after midnight on the night prior to your surgery date. You are allowed to drink clear liquids up to two hours prior to arrival time to the hospital or surgery center. Examples of clear liquids include water, clear fruit juice without pulp, clear carbonated beverages, clear tea, and black coffee. Any drinks given by your surgical service take as directed. Infant/pediatric patients who currently drink breast milk, infant formula, and non-human milk must not eat after midnight. These patients are allowed to drink only the liquids listed below up to two hours prior to arrival time to the hospital or surgery center: Ingested Material Minimum Fasting Time Clear liquid After midnight up to 2 hours prior to arrival time Breast milk Up to 4 hours prior to arrival time formula Up to 6 hours prior to arrival time Non-human milk Up to 6 hours prior to arrival time THE DAY BEFORE YOUR SURGERY: -Drink plenty of fluid the day before your surgery. Contact your surgeon's office if you develop any of the following within 2 weeks of surgery: A cold Infection Fever Shingles Chicken pox or exposure to chicken pox Open areas such as scrapes, cuts, stark or other skin conditions Rashes GENERAL INSTRUCTIONS FOR PREPARING FOR SURGERY: BATHING INSTRUCTIONS: Bathe the evening prior to and the morning of surgery/procedure. Cleanse your body using ONLY anti-bacterial soap (eg, Dial, Safeguard) or any specific soap/cleansers and instructions provided by your surgeon (eg, Chlorhexidine). -You should brush your teeth the morning of surgery. Do NOT apply any lotions, powders, sprays, creams, oils, make-up, or deodorants after bathing. No hairspray, or nail somali on fingers or toes. Day of surgery/procedure do not use tampons. If you wear contacts wear your eyeglasses if available otherwise bring your contact supplies with you to remove them prior to your surgery/procedure. If you wear glasses or dentures, please bring cases in which you can store them during your surgery. Please remove all piercings and jewelry and leave them at home. Wear comfortable and loose clothing. -Please leave all valuables at home. -If you use a CPAP and are staying overnight, please bring your mask and tubing with you to the hospital. -If you use an assistive mobility device (walker, cane, etc), please label it with your name and bring to hospital. -An escort lumber driver is required if you are being discharged the same day of the surgery. You should have a responsible adult over the age of 18 [address] you home. This person should be present with youin the hospital at the time of discharge and for the first 24 hours after the surgery to support your needs. If you are taking a taxi home, you must have your responsible constitution party accompany you in the taxi ride home at the time of discharge. OR times subject to change. Please check voicemail messages the day/evening before your surgery forany updates. PRE-OP: You will be taken to the pre-op area where your vital signs (blood pressure, pulse and temperature)will be taken. Any preparations that need to be done will be done there. When it is time for your surgery, you will be taken to the operating room. PARENTS OF PEDIATRIC PATIENTS WILL BE ALLOWED TO STAY WITH THEIR CHILDREN UNTIL THEY ARE ESCORTED TO THE OPERATING ROOM OUTPATIENT SURGERY PATIENTS: After your surgery you will be taken to the Same Day Surgery Unit when you are awake and will go home from there. You will get instructions about your home care before you leave. Arrange to have someone drive you home from the hospital. You may not drive for 24 hours after anesthesia. You must havean adult stay with you at home for 24 hours after your operation. This is very important. If you are not able to comply with these guidelines, your Short Stay surgery cannot be done. ADMISSION PATIENTS: After your stay in the recovery area, you will be taken to your room. Your family may visit you in your room based on current visitation policy. If a next day discharge is expected, it is important to make arrangements for a lumber driver to take you home. Please be aware our visitation policies are subject to change Professionals, attendants, caregivers or family members are allowable visitors for patients with intellectual, developmental or cognitive disabilities, communication barriers or behavioral concerns. Because patients' and families' needs vary, they will be taken into account when applying visitat ion restrictions. [facility] [address] [place] [address] Contact#: [phone] You will be called by the [facility]-op team the day before surgery between 8:00 AM and 4:00 PM with yourarrival time and instructions. Please enter through the Main Entrance, check in at the registration desk directly inside the doors. Take the Main Lobby Elevator to the 3rd floor. Wait in the waiting room directly outside the elevators for staff to bring you into the unit. Family members will wait in the waiting room until calledin by the staff. THANK YOU FOR CHOOSING [facility]! * Hollie Gregory RN - 11/16/2022 10:04 AM EDT Attempted to call patient for pre-op phone call. Message left for patient to call back. * Meek Alba RN - 11/10/2022 3:04 PM EDT Attempted to call patient for pre-op phone call. Message left for patient to call back. documented in this encounter OR Notes * OR Surgeon - Quentin Caldera MD - 11/23/2022 10:51 AM EDT OPERATIVE RECORD Name: Luis Whittington Date/Time: 11/23/2022 Location: OR [facility] Service: Ophthalmology Pre-op Diagnosis: Epiretinal membrane right eye Post-op Diagnosis: Same NAME OF PROCEDURES: right eye 1. Pars plana vitrectomy 2. Epiretinal membrane Peeling 3. ILM Peeling Complications: None. DESCRIPTION OF PROCEDURE: The patient was identified in the preoperative holding area. The patient's right was confirmed as the surgical eye. It was then marked and dilated. The surgical procedure was reviewed with the patient and all questions answered. The informed consent was confirmed to be located in the chart. The patient was taken to the operating room and [...] the pupil to ensure proper positioning in the vitreous cavity before being turned on. A complete core vitrectomy with peripheral shaving was performed. Tissue blue was injected over the posterior pole being careful not to inject subretinally. The bluewas washed off one minute later. A flex loop and david dusted end gripping forceps were used to remove the epiretinal membrane and internal limiting membrane throughout the posterior pole. A complete air fluid exchange was done I injected 0.1 cc of triesence I removed the ports and closed the superiortempoal with 7-0 vicryl. One drop of ofloxacin and Prednisolone were given. The lid speculum was removed. Ophthalmic ointment, 2 patches were placed on the eye. Patient was taken to recovery in stable condition. Quentin Caldera MD 11/23/2022 Surgeon: Quentin Caldera MD Assistants: None Anesthesia: Monitored Local Anesthesia with Sedation Drains: none Estimated Blood Loss: <1 ml. IV Fluids: <500 ml. Urine Output: N/A Specimens/Disposition: None Apparent Intraoperative Complications: None Patient Condition: stable Disposition: Post Anesthesia Care Unit Attestation: I performed the procedure Quentin Caldera MD 11/23/2022, 10:51 AM cc: Professional Reimbursement and Compliance documented in this encounter Plan of Treatment Upcoming Encounters Date Type Specialty Care Team Description 11/24/2022 Office Visit Ophthalmology Kendall Fernandez DO [address] [place] [address] 05/22/2023 Office Visit Family Medicine Maikol Te SHEPHERD MD [address] [place], [place] [address] [address] Health Maintenance Due Date Last Done Comments [...] this encounter Medical Devices Implanted Type Area Arbor Press Operator Device Identifier Shelf Expiration Date Model / Serial / Lot Envista Intraocular Lens Implanted:Qty: 1 on 11/18/2021 by Noble Rivera MD at OR [facility] Right: Eye [employer] 10/05/2022 [id number] / [id number] / [id number] documented as of this encounter Visit Diagnoses Diagnosis Epiretinal membrane (ERM) of right eye- Primary Epiretinal membrane (ERM) of right eye documented in this encounter Administered Medications Inactive Administered Medications - up to 3 most recent administrations Medication Order MAR Action Action Date Dose Rate Site cyclopentolate (Cyclogyl) 2 % ophthalmic solution 1 Drop 1 Drop, Right eye, Q5 MINUTES, First dose on Mon11/23/22 at 1030, Last dose on Mon11/23/22 at 1040, For 3 doses, PRE-OP: One drop to right eye every 5 minutes for 3 doses, Pre-Op Given 11/23/2022 10:32 AM EDT 1 Drop Given 11/23/2022 10:16 AM EDT 1 Drop Given 11/23/2022 10:01 AM EDT 1 Drop Ofloxacin (Ocuflox) 0.3 % ophthalmic solution 1 Drop 1 Drop, Right eye, Q5 MINUTES, First dose on Mon11/23/22 at 1030, Last dose on Mon11/23/22 at 1040, For 3 doses, PRE-OP: One drop to right eye every 5 minutes for 3 doses, Pre-Op Given 11/23/2022 10:32 AM EDT 1 Drop Given 11/23/2022 10:16 AM EDT 1 Drop Given 11/23/2022 10:01 AM EDT 1 Drop PHENYLephrine (Ak-Dilate) 2.5 % ophthalmic solution 1 Drop 1 Drop, Right eye, Q5 MINUTES, First dose on Mon11/23/22 at 1030, Last dose on Mon11/23/22 at 1040, For 3 doses, PRE-OP: 1 drop to right eye every 5 minutes for 3 doses, Pre-Op Given 11/23/2022 10:32 AM EDT 1 Drop Given 11/23/2022 10:16 AM EDT 1 Drop Given 11/23/2022 10:02 AM EDT 1 Drop prednisoLONE Acetate (Pred Forte) 1 % ophthalmic suspension 1 Drop 1 Drop, Right eye, Q5 MINUTES, First dose on Mon11/23/22 at 1030, Last dose on Mon11/23/22 at 1040, For 3 doses, PRE-OP: One drop to right eye every 5 minutes for 3 doses., Pre-Op Given 11/23/2022 10:32 AM EDT 1 Drop Given 11/23/2022 10:16 AM EDT 1 Drop Given 11/23/2022 10:02 AM EDT 1 Drop proparacaine (Alcaine) 0.5 % ophthalmic solution 1 Drop 1 Drop, Right eye, ONCE, On Mon11/23/22 at 1030, For 1 dose, PRE-OP: 15 minutes prior to scheduled surgery time for 1 dose, Pre-Op Given 11/23/2022 10:0 1 AM EDT 1 Drop documented in this encounter Active and Recently Administered Medications Times are shown in EDT. Scheduled Medication Order 11/21/2022 11/22/2022 11/23/2022 cyclopentolate (Cyclogyl) 2 % ophthalmic solution 1 Drop (COMPLETED) 1 Drop, Right eye, Q5 MINUTES, First dose on Mon11/23/22 at 1030, Last dose on Mon11/23/22 at 1040, For 3 doses, PRE-OP: One drop to right eye every 5 minutes for 3 doses, Pre-Op 1001 (Given - Provid er: Francine Keller RN)1016 (Given - Provider: Francine Keller RN)1032 (Given - Provider: Francine Keller RN) Ofloxacin (Ocuflox) 0.3 % ophthalmic solution 1 Drop (COMPLETED) 1 Drop, Right eye, Q5 MINUTES, First dose on Mon11/23/22 at 1030, Last dose on Mon11/23/22 at 1040, For 3 doses, PRE-OP: One drop to right eye every 5 minutes for 3 doses, Pre-Op 1001 (Given - Provid er: Francine Keller RN)1016 (Given - Provider: Francine Keller RN)1032 (Given - Provider: Francine Keller RN) PHENYLephrine (Ak-Dilate) 2.5 % ophthalmic solution 1 Drop (COMPLETED) 1 Drop, Right eye, Q5 MINUTES, First dose on Mon11/23/22 at 1030, Last dose on Mon11/23/22 at 1040, For 3 doses, PRE-OP: 1 drop to right eye every 5 minutes for 3 doses, Pre-Op 1002 (Given - Provid er: Francine Keller RN)1016 (Given - Provider: Francine Keller RN)1032 (Given - Provider: Francine Keller RN) prednisoLONE Acetate (Pred Forte) 1 % ophthalmic suspension 1 Drop (COMPLETED) 1 Drop, Right eye, Q5 MINUTES, First dose on Mon11/23/22 at 1030, Last dose on Mon11/23/22 at 1040, For 3 doses, PRE-OP: One drop to right eye every 5 minutes for 3 doses., Pre-Op 1002 (Given - Provid er: Francine Keller RN)1016 (Given - Provider: Francine Keller RN)1032 (Given - Provider: Francine Keller RN) proparacaine (Alcaine) 0.5 % ophthalmic solution 1 Drop (COMPLETED) 1 Drop, Right eye, ONCE, On Mon11/23/22 at 1030, For 1 dose, PRE-OP: 15 minutes prior to scheduled surgery time for 1 dose, Pre-Op 1001 (Given - Provid er: Francine Kellre RN) PRN Medication Order 11/21/2022 11/22/2022 11/23/2022 brilliant blue 0.025 % inj (CANCELED) ONCE PRN INTRA PROCEDURE, Starting on Mon11/23/22 at 1115, Until Mon11/23/22 at 1151, Intra-Op 1131 (Given - Provid er: Quentin Caldera MD - Comment: PRN intraop) bupivacaine (PF) 4.5 mL, Hyaluronidase Human 150 Units, lidocaine 2 % 4.5 mL inj (CANCELED) ONCE PRN INTRA PROCEDURE, Starting on Mon11/23/22 at 1109, Until Mon11/23/22 at 1151, Intra-Op 1109 (Given - Provid er: Quentin Caldera MD - Comment: retrobulbar block) DUOVISC inj KIT (CANCELED) ONCE PRN INTRA PROCEDURE, Starting on Mon11/23/22 at 1115, Until Mon11/23/22 at 1151, Intra-Op 1115 (Given - Provid er: Quentin Caldera MD - Comment: PRN intraop) EPINEPHrine 0.3 mg in balanced salt solution 500 mL inj (CANCELED) ONCE PRN INTRA PROCEDURE, Starting on Mon11/23/22 at 1114, Until Mon11/23/22 at 1151, Intra-Op 1114 (Given - Provid er: Quentin Caldera MD - Comment: PRN intraop) Erythromycin ophthalmic ointment (CANCELED) ONCE PRN INTRA PROCEDURE, Starting on Mon11/23/22 at 1115, Until Mon11/23/22 at 1151, Intra-Op 1115 (Given - Provid er: Quentin Caldera MD) Triamcinolone Acetonide (Triesence) ophth inj (CANCELED) ONCE PRN INTRA PROCEDURE, Starting on Mon11/23/22 at 1142, Until Mon11/23/22 at 1151, Intra-Op 1142 (Given - Provid er: Quentin Caldera MD) Triamcinolone Acetonide 40 mg in balanced salt solution 1 mL inj (CANCELED) ONCE PRN INTRA PROCEDURE, Starting on Mon11/23/22 at 1142, Until Mon11/23/22 at 1151, Intra-Op 1142 (Given - Provid er: Quentin Caldera MD) documented in this encounter Care Teams Wallpaper Printer Helper Relationship Specialty Start Date End Date Te Lassiter III, MD [address] [place] [address], [place] [address] PCP - General 09/06/02 documented as of this encounter
--- OUTSIDE RECORDS SUMMARY | 2023-03-17 23:10 | External Medical Summary | Summary of Care ---
Author Name Unknown Organization [facility] Address [address] [facility] [address] Phone [phone] Care Team Providers Care Tool And Cutter Grinder Name Role Phone Maikol SHEPHERD MD, Te Pérez Primary Care Provider [phone] Encounter Details Date Type Department Care Team Description 10/20/2022 Immunization Pharmacy, [facility] [address] [place] [address] [place] [address] Vaccine Pharmacy [facility] [address] [facility] [place] [address] Arrived Allergies No known active allergiesdocumented as of this encounter (statuses as of 10/20/2022) Medications Medication Sig Dispensed Refills Start Date End Date Status Cyanocobalamin 1000 MCG Oral Tablet (Cyanocobalamin) Take 1 Tab by mouth daily. 100 Tab 3 10/14/2020 Active Additional Information Patient not taking.Reported on 02/17/2022 PARoxetine HCl 40 MG Oral Tablet (pAXil) Take by mouth 1 Tablet in the morning. 90 Tablet 3 09/08/2021 Active CPAP every night at bedtime . 0 Active Lisinopril-hydroCH LOROthiazide 20-25 MG Oral TabletIndications: HTN, goal below 140/90 TAKE 1 TABLET BY MOUTH EVERY DAY 90 Tablet 3 11/23/2021 Active Lisinopril 20 MG Oral Tablet (Prinivil)Indicati ons:HTN, goal below 140/90 Take 1 Tablet by mouth in the morning. 90 Tablet 3 09/21/2022 Active metFORMIN HCl ER 500 MG Oral Tablet Extended Release 24 Hour (Glucophage XR)Indications:Pre diabetes TAKE 3 TABLETS BY MOUTH EVERY DAY 270 Tablet 2 09/21/2022 Active Atorvastatin Calcium 20 MG Oral Tablet (Lipitor)Indicatio ns:Dyslipidemia, goal LDL below 130 Take 1 Tablet by mouth in the morning. 90 Tablet 1 09/21/2022 Active documented as of this encounter (statuses as of 10/20/2022) Active Problems Problem Noted Date Prediabetes 06/20/2017 [...] as of this encounter (statuses as of 10/20/2022) Resolved Problems Problem Noted Date Resolved Date Mixed dyslipidemia 07/03/2006 04/21/2009 Overview: Per Lipid Taxonomy. documented as of this encounter (statuses as of 10/20/2022) Immunizations Name Administration Dates Next Due COVID-19 mRNA, LNP-s, No Pre serve, 2-Dose Series (Bloodhound) 02/10/2021,07/14/2020,06/16/2020 COVID-19, LNP-s, No Preserve , Popeye-sucrose, Ages 12+ (Pfizer) 12/28/2021 Covid-19, Mrna, Lnp-s, Pf, B ivalent, 30 Mcg, IM, 12 yrs and above (Bloodhound) 10/20/2022,03/17/2022 Pneumococcal Conjugate Vacci ne, 20-valent ([id number]) 10/20/2021 Seasonal Influenza, Quadriva lent, No Preserve, [...] at most, but not all the time Sex Assigned at Date Recorded Not on file Job Start Date Occupation Industry Not on file Not on file Not on file documented as of this encounter Plan of Treatment Upcoming Encounters Date Type Specialty Care Team Description 11/11/2022 Office Visit Family Medicine Maikol Te SHEPHERD MD [address] [facility], [place] [address] 11/23/2022 Hospital Encounter Surgery Quentin Caldera MD [address] [place] [address] [place] [address] 11/23/2022 Surgery Surgery Quentin Caldera MD [address] [place] [address] RIGHT VITRECTOMY MECHANICAL PARS PLANA APPROACH REMOVAL OF PRERETINAL CELLULAR MEMBRANE Scheduled Procedures Name Priority Associated Diagnoses Date/Ti me VITRECTOMY MECHANICAL PARS PLANA APPROACH REMOVAL OF PRERETINAL CELLULAR MEMBRANE Epiretinal membrane, right eye 11/23/2022 8:00 AM EDT Health Maintenance Due Date Last Done Comments Albumin/Creatinine Ratio 01/15/1974 Cologuard 01/15/2001 Fecal Occult Blood Test 01/15/2001 Sigmoidoscopy 01/15/2001 Depression Screening, Annual for Pts 12 and Over 04/03/2018 04/03/2017 GFR 08/25/2022 08/25/2021, 11/2020, 04/16/2019, Additional history exists HbA1c 08/25/2022 08/25/2021, 04/07, 03/31/2017, Additional history exists Influenza Vaccine (FLU shot) (Season Ended) 2023 02/27/2020, 04/17/2019, 04/17/2018, Additional history exists Colonoscopy 07/14/2025 07/15/2015, 09/2009, 09/09/2008 Colorectal Cancer Screening 07/14/2025 Lipid Panel 10/12/2025 10/12/2020, 04/07, 04/13/2018, Additional history exists DTaP,Tdap,and Td Vaccines (3 [...] this encounter Medical Devices Implanted Type Area Voip Network Technician Device Identifier Shelf Expiration Date Model / Serial / Lot Envista Intraocular Lens Implanted:Qty: 1 on 11/18/2021 by Noble Rivera MD at OR [facility] Right: Eye [employer]OM[employer] 10/05/2022 [id number] / [id number] documented as of this encounter Care Teams Tool And Cutter Grinder Relationship Specialty Start Date End Date Wolfe III, Te Pérez MD [address] [place] [address], [place] [address] PCP - General 09/06/02 documented as of this encounter
--- OUTSIDE RECORDS SUMMARY | 2023-03-17 23:10 | External Medical Summary | Summary of Care ---
Author Name Unknown Organization [facility] Address [address] [facility] [address] Phone [phone] Care Team Providers Care Electrician Radio Name Role Phone Maikol SHEPHERD MD, John E Primary Care Provider [phone] Reason for Visit * Reason Onset Date Comments Medication Refill 09/20/2022 Encounter Details Date Type Department Care Team Description 09/20/2022 Refill General Internal Medicine [facility] [address] [place] [address] [facility] [place] [address] Camille Maradiaga III, MD [address] [facility] [place] [address] HTN, goal below 140/90; Prediabetes; Dyslipidemia, goal LDL below 130 Allergies No known active allergiesdocumented as of this encounter (statuses as of 09/21/2022) Medications Medication Sig Dispensed Refills Start Date End Date Status Cyanocobalamin 1000 MCG Oral Tablet (Cyanocobalamin) Take 1 Tab by mouth daily. 100 Tab 3 10/14/2020 Active Additional Information Patient not taking.Reported on 02/17/2022 PARoxetine HCl 40 MG Oral Tablet (pAXil) Take by mouth 1 Tablet in the morning. 90 Tablet 3 09/08/2021 Active CPAP every night at bedtime . 0 Active Lisinopril-hydro CHLOROthiazide 20-25 MG Oral TabletIndication s:HTN, goal below 140/90 TAKE 1 TABLET BY MOUTH EVERY DAY 90 Tablet 3 11/23/2021 Active Lisinopril 20 MG Oral Tablet (Prinivil)Indica tions:HTN, goal below 140/90 Take 1 Tablet by mouth in the morning. 90 Tablet 3 09/21/2022 Active metFORMIN HCl ER 500 MG Oral Tablet Extended Release 24 Hour (Glucophage XR)Indications:P rediabetes TAKE 3 TABLETS BY MOUTH EVERY DAY 270 Tablet 2 09/21/2022 Active Atorvastatin Calcium 20 MG Oral Tablet (Lipitor)Indicat ions:Dyslipidemi a, goal LDL below 130 Take 1 Tablet by mouth in the morning. 90 Tablet 1 09/21/2022 Active Lisinopril 20 MG Oral Tablet (Prinivil)Indica tions:HTN, goal below 140/90 TAKE 1 TABLET BY MOUTH EVERYDAY AT BEDTIME 90 Tablet 3 12/06/2021 3 Discontinue d(Refill) metFORMIN HCl ER 500 MG Oral Tablet Extended Release 24 Hour (Glucophage XR)Indications:P rediabetes TAKE 3 TABLETS BY MOUTH EVERY DAY 270 Tablet 2 12/20/2021 3 Discontinue d(Refill) Atorvastatin Calcium 20 MG Oral Tablet (Lipitor)Indicat ions:Dyslipidemi a, goal LDL below 130 Take 1 Tablet by mouth in the morning. 90 Tablet 1 05/18/2022 3 Discontinue d(Refill) documented as of this encounter (statuses as of 09/21/2022) Active Problems Problem Noted Date Prediabetes 06/20/2017 [...] as of this encounter (statuses as of 09/21/2022) Resolved Problems Problem Noted Date Resolved Date Mixed dyslipidemia 07/03/2006 04/21/2009 Overview: Per Lipid Taxonomy. documented as of this encounter (statuses as of 09/21/2022) Immunizations Name Administration Dates Next Due COVID-19 mRNA, LNP-s, No Pre serve, 2-Dose Series (Pfizer) 02/10/2021,07/14/2020,06/16/2020 COVID-19, LNP-s, No Preserve , Popeye-sucrose, Ages 12+ (Pfizer) 12/28/2021 Covid-19, Mrna, Lnp-s, Pf, B ivalent Booster, 30 Mcg, IM, 12 yrs and above (Pfizer) 03/17/2022 Pneumococcal Conjugate Vacci ne, 20-valent ([id number]) 10/20/2021 Seasonal Influenza, Quadriva lent, No Preserve, [...] encounter Miscellaneous Notes * Telephone Encounter - Camille Maradiaga III, MD - 09/21/2022 12:22 PM EDTSigned Prescriptions: Disp Refills Lisinopril 20 MG Oral Tablet (Prinivil) 90 Tab*3 Sig: Take 1 Tablet by mouth in the morning.Authorizing Provider: CAMILLE MARADIAGA III metFORMIN HCl ER 500 MG Oral Tablet Extend*270 Ta*2 Sig: TAKE 3 TABLETS BY MOUTH EVERY DAYAuthorizing Provider: CAMILLE MARADIAGA III Atorvastatin Calcium 20 MG Oral Tablet (Li*90 Tab*1 Sig: Take 1 Tablet by mouth in the morning.Au thorizing Provider: CAMILLE MARADIAGA III * Telephone Encounter - Pretty Head LPN - 09/21/2022 8:48 AM EDTPending Prescriptions: Disp Refills Lisinopril 20 MG Oral Tablet (Prinivil) 90 Tab*3 Sig: Take 1 Tablet by mouth in the morning. metFORMIN HCl ER 500 MG Oral Tablet Extend*270 Ta*2 Sig: TAKE 3 TABLETS BY MOUTH EVERY DAY Atorvastatin Calcium 20 MG Oral Tablet (Li*90 Tab*1 Sig: Take 1 Tablet by mouth in the morning. * Telephone Encounter - Pretty Head LPN - 09/21/2022 8:47 AM EDT Did you pend patient's preferred pharmacy and medication before forwarding?yes Pharmacy: [id number] [address] [facility] Pending Prescriptions: Disp Refills Lisinopril 20 MG Oral Tablet (Prinivil) 90 Tab*3 Sig: Take 1 Tablet by mouth in the morning. metFORMIN HCl ER 500 MG Oral Tablet Exten*270 Ta*2 Sig: TAKE 3 TABLETS BY MOUTH EVERY DAY Atorvastatin Calcium 20 MG Oral Tablet (L*90 Tab*1 Sig: Take 1 Tablet by mouth in the morning. Last Visit: Visit date not found (in office), 10/10/2019 (telemedicine) Next Visit: Visit date not found If no future appointments scheduled, and last appointment is greater than a year ago, please schedule patient for a follow-up appointment Last date the medication was ordered: 05/18/22 Is this request for a controlled substance?No Urine Drug Screen:No results found for this or any previous visit. Patient Phone Numbers Labs: Lab Results Component Value Date/Time CREAT 1.0 08/25/2021 08:17 AM CREAT 1.3 (H) 04/16/2019 03:07 PM POTASSIUM 4.6 08/25/2021 08:17 AM POTASSIUM 4.4 04/16/2019 03:07 PM TSH 1.01 08/25/2021 08:17 AM TSH 1.19 04/18/2016 07:56 AM LDLCALC 59 10/12/2020 07:42 AM LDLCALC 65 04/16/2019 03:07 PM LDLDIRECT NOT APPLICABLE 04/16/2019 03:07 PM LDLDIRECT 158 (H) 07/05/2006 10:04 AM ALT 32 10/12/2020 07:42 AM ALT 42 04/16/2019 03:07 PM HGBA1C 5.9 (H) 08/25/2021 08:17 AM HGBA1C 6.1 (H) 04/16/2019 03:07 PM documented in this encounter Plan of Treatment Upcoming Encounters Date Type Specialty Care Team Description 11/11/2022 Office Visit Family Medicine Coffey III, Camille Pérez MD [address] [place] [address] 11/23/2022 Hospital Encounter Surgery Quentin Caldera MD [address] [address] [place] [address] 11/23/2022 Surgery Surgery Quentin Caldera MD [address] [place] [address] RIGHT VITRECTOMY MECHANICAL PARS PLANA APPROACH REMOVAL [...] Pts 12 and Over 04/03/2018 04/03/2017 GFR - Renal Function 08/25/2022 08/25/2021, 10/12/2020, 04/16/2019, Additional history exists HgA1C 08/25/2022 08/25/2021, 04/07, 03/31/2017, Additional history exists Influenza Vaccine (FLU shot) (Season Ended) 2023 02/27/2020, 04/17/2019, 04/17/2018, Additional history exists Colonoscopy 07/14/2025 07/15/2015, 0509/2009, 09/09/2008 Colorectal Cancer Screening 07/14/2025 Lipid Panel 10/12/2025 10/12/2020, 04/07, 04/13/2018, Additional history exists DTaP,Tdap,and Td Vaccines (3 - Td or Tdap) 10/23/2028 10/23/2018, 08/12/2008 Zoster Vaccines Completed 04/17/2019, 10/06, 08/06/2014 Pneumococcal Vaccine: 65+ Years Completed 10/20/2021 COVID-19 Vaccine Completed 03/17/2022, , 02/10/2021, Additional history exists GARDASIL-HPV IMMUNIZATION SERIES Aged Out No longer eligible based on patient's age to complete this topic Hepatitis B Aged Out No longer eligi ble based on patient's age to complete this topic MENINGOCOCCAL (MENACTRA/MENVEO) Aged Out No longer eligible based on patient's age to complete this topic documented as of this encounter Medical Devices Implanted Type Area Hand Stapler Device Identifier Shelf Expiration Date Model / Serial / Lot Envista Intraocular Lens Implanted:Qty: 1 on 11/18/2021 by Noble Rivera MD at OR [facility] Right: Eye [employer]OM[employer] 10/05/2022 [id number] / [id number] / [id number] documented as of this encounter Visit Diagnoses Diagnosis HTN, goal below 140/90 Unspecified essential hypertension Prediabetes Other abnormal glucose Dyslipidemia, goal LDL below 130 Other and unspecified hyperlipidemia Epiretinal membrane, right eye Macular puckering of retina documented in this encounter Care Teams Electrician Radio Relationship Specialty Start Date End Date Camille Maradiaga III, MD [address] [place] [address], [place] [address] PCP - General 09/06/02 documented as of this encounter
--- OUTSIDE RECORDS SUMMARY | 2023-03-17 23:10 | External Medical Summary | Summary of Care ---
Author Name Unknown Organization [facility] Address [address] [place] [address] Phone [phone] Care Team Providers Care Ship Unloader Name Role Phone Maikol SHEPHERD MD, Te Pérez Primary Care Provider [phone] Reason for Visit * Reason Comments Outpatient Testing Encounter Details Date Type Department Care Team Description 11/18/2022 Laboratory Laboratory, [facility] [address] [facility] [place] [address] [facility] [address] [facility] [place] [address] HTN, goal below 140/90 Allergies No known active allergiesdocumented as of this encounter (statuses as of 11/18/2022) Medications Medication Sig Dispensed Refills Start Date [...] as of this encounter (statuses as of 11/18/2022) Active Problems Problem Noted Date Epiretinal membrane [...] as of this encounter (statuses as of 11/18/2022) Resolved Problems Problem Noted Date Resolved Date Mixed dyslipidemia 07/03/2006 04/21/2009 Overview: Per Lipid Taxonomy. documented as of this encounter (statuses as of 11/18/2022) Immunizations Name Administration Dates Next Due COVID-19 mRNA, LNP-s, No Pre serve, 2-Dose Series (YourPOV.TV) 02/10/2021,07/14/2020,06/16/2020 COVID-19, LNP-s, No Preserve , Popeye-sucrose, Ages 12+ (Pfizer) 12/28/2021 Covid-19, Mrna, Lnp-s, Pf, B ivalent, 30 Mcg, IM, 12 yrs and above (Pfizer) 10/20/2022,03/17/2022 Pneumococcal Conjugate Vacci ne, 20-valent ([id number]) 10/20/2021 Seasonal Influenza, Quadriva lent, No Preserve, [address] [place] [address] 11/23/2022 Surgery Surgery Quentin Caldera MD [address] [place] [address] RIGHT VITRECTOMY MECHANICAL PARS PLANA APPROACH REMOVAL OF PRERETINAL CELLULAR MEMBRANE 05/22/2023 Office Visit Family Medicine Te Lassiter III, MD [address] [place] [address] Pending Results Name Type Priority Associated Diagnoses Date /Time ALBUMIN / CREATININE RATIO, URINE Lab Routine HTN, goal below 140/90 11/18/2022 3:00 PM EDT Scheduled Procedures Name Priority Associated Diagnoses Date/Ti [...] 05/0 09/2009, 09/09/2008 Colorectal Cancer Screening 07/14/2025 Lipid Panel 11/13/2027 11/12/2022, 06/0 11/2020, 04/16/2019, [...] encounter Medical Devices Implanted Type Area Vegetable I Farmworker Device Identifier Shelf Expiration Date Model / Serial / Lot Envista Intraocular Lens Implanted:Qty: 1 on 11/18/2021 by Noble Rivera MD at [facility] Right: Eye [employer]OM[employer] 10/05/2022 [id number] / [id number] / [id number] documented as of this encounter Visit Diagnoses Diagnosis Epiretinal membrane (ERM) of right eye- Primary Epiretinal membrane (ERM) of right eye HTN, goal below 140/90 Unspecified essential hypertension Epiretinal membrane, right eye Macular puckering of retina documented in this encounter Care Teams Ship Unloader Relationship Specialty Start Date End Date Te Lassiter III, MD [address] [place] [address] [place] [address] PCP - General 09/06/02 documented as of this encounter
--- OUTSIDE RECORDS SUMMARY | 2023-03-17 23:10 | External Medical Summary ---
Author Name Unknown Address Unknown Organization [id number]:[facility] - [address] [facility] [place] [address] Laboratory Report Ordering Provider Test Date Status CAMILLEASHWINI III 11/12/2022 08:31:00 Final Observation Date Value Abnormality Reference (Units ) Status Triglyceride 11/12/2022 08:31:00 82 <=174 ( mg/dL) Final Triglyceride Reference Range s (mg/dL):
<150 Acceptable
150-174 Borderline high
175-499 High
>=500 Very high Cholesterol 11/12/2022 08:31:00 141 <200 (mg /dL) Final Total Cholesterol Reference Ranges (mg/dL):
<200 Desirable
200-239 Borderline high
>=240 High HDL 11/12/2022 08:31:00 49 >39 (mg/dL ) Final HDL Cholesterol Reference Ra nges (mg/dL):
>=60 High (Desirable)
<50 Low (Undesirable) For Females
<40 Low (Undesirable) For Males NON-HDL CHOLESTEROL 11/12/2022 08:31:00 92 <=159 (mg/dL) Final Non-HDL Cholesterol Referenc e Range (mg/dL):
<100 Target level for high risk ASCVD patient
<130 Optimal for general population
130-159 Near optimal for general population
160-189 Borderline High
190-219 High
>=220 Very High LDL, (calculated) 11/12/2022 08:31:00 76 <= 129 (mg/dL) Final LDL Cholesterol Reference Ra nges (mg/dL):
<70 Target level for high risk ASCVD patient
<100 Optimal for general population
100-129 Near optimal for general population
130-159 Borderline high
160-189 High
>=190 Very high Performing Location [facility] [place] - [address] [place] [address]
--- OUTSIDE RECORDS SUMMARY | 2023-03-17 23:10 | External Medical Summary | Summary of Care ---
Author Name Unknown Organization [facility] Address [address] [place] [facility] [place] [address] Phone [phone] Care Team Providers Care Ground Operations Supervisor Name Role Phone Maikol SHEPHERD MD, John E Primary Care Provider [phone] Reason for Visit * Reason Comments Physical-Exam Pt stated that he is here for a physical exam Encounter Details Date Type Department Care Team Description 11/11/2022 Office Visit Family Practice [place] 200 [facility] [place] [address] Te Lassiter III, MD 200 [facility] [place] [address] Preop examination*; HTN, goal below 140/90; Dyslipidemia, goal LDL below 130; Prediabetes; Routine medical exam; Screening for prostate cancer Allergies No known active allergiesdocumented as of this encounter (statuses as of 11/14/2022) Medications Medication Sig Dispensed Refills Start Date [...] the morning. 90 Tablet 1 09/21/2022 Active Cyanocobalamin 1000 MCG Oral Tablet (Cyanocobalamin) Take 1 Tab by mouth daily. 100 Tab 3 10/14/2020 11/11/2022 Discontinued documented as of this encounter (statuses as of 11/14/2022) Active Problems Problem Noted Date Prediabetes 06/20/2017 [...] as of this encounter (statuses as of 11/14/2022) Resolved Problems Problem Noted Date Resolved Date Mixed dyslipidemia 07/03/2006 04/21/2009 Overview: Per Lipid Taxonomy. documented as of this encounter (statuses as of 11/14/2022) Immunizations Name Administration Dates Next Due COVID-19 mRNA, LNP-s, No Pre serve, 2-Dose Series ([employer]) 02/10/2021,07/14/2020,06/16/2020 COVID-19, LNP-s, No Preserve , Popeye-sucrose, Ages 12+ ([employer]) 12/28/2021 Covid-19, Mrna, Lnp-s, Pf, B ivalent, 30 Mcg, IM, 12 yrs and above (Pfizer) 10/20/2022,03/17/2022 Pneumococcal Conjugate Vacci ne, 20-valent ([id number]) 10/20/2021 Seasonal Influenza, Quadriva lent, No Preserve, [...] Sign Reading Time Taken Comments Blood Pressure 136/72 11/11/2022 11:48 AM EDT Pulse 88 11/11/2022 11:48 AM EDT Temperature 36.6 C (97.9 F) 11/11/2022 1 1:48 AM EDT Respiratory Rate - - Oxygen Saturation 96% 11/11/2022 11: 48 AM EDT Inhaled Oxygen Concentration - - Weight 104.9 kg (231 lb 3.2 oz) 023 11:48 AM EDT Height 180.3 cm (5' 10.98") 11/11/2022 11:48 AM EDT Body Mass Index 32.26 11/11/2022 11:48 AM EDT documented in this encounter Progress Notes * Te Lassiter III, MD - 11/11/2022 12:14 PM EDT Subjective: Luis Whittington is a 67 year old [...] DIAGNOSTIC (RECTUM) 07/15/2015 submucosal mass - appendicieal orifice/[facility] EGD, FLEXIBLE, DIAGNOSTIC 05/26/11 wnl MISCELLANEOUS ORDER ([facility] ONLY) ACT 112 SIGNED, Dr. Fernandez (12-06-2018) REMOVAL OF APPENDIX REMOVE CATARACT, INSERT LENS PROSTH Right 11/18/2021 right EXTRACAPSULAR CATARACT REMOVAL WITH INTRAOCULAR LENS performed by Noble Rivera MD at OR [facility] REPAIR INITIAL INGUINAL HERNIA REDUCIBLE AGE 6 [...] documented in this encounter Nursing Notes * Kavon Dumont LPN - 11/11/2022 11:48 AM EDT Chief Complaint Patient presents with Physical-Exam Pt stated that he is here for a physical exam documented in this encounter Plan of Treatment Upcoming Encounters Date Type Specialty Care Team Description 11/23/2022 Hospital Encounter Surgery Quentin Caldera MD [address] [place] [address] 11/23/2022 Surgery Surgery Quentin Caldera MD [address] [place] [address] RIGHT VITRECTOMY MECHANICAL PARS PLANA APPROACH REMOVAL OF PRERETINAL CELLULAR MEMBRANE 05/22/2023 Office Visit Family Medicine Te Lassiter III, MD 200 [place] [address] Scheduled Procedures Name Priority Associated Diagnoses Date/Ti [...] and Over 11/12/2023 11/11/2022 GFR 11/13/2023 11/12/2022, 04/2 , 10/12/2020, Additional history exists HbA1c 11/13/2023 11/12/2022, 08/07, 04/16/2019, Additional history exists Colonoscopy 07/14/2025 07/15/2015, 09/2009, 09/09/2008 Colorectal Cancer Screening 07/14/2025 Lipid Panel 11/13/2027 11/12/2022, 11/2020, 04/16/2019, Additional [...] encounter Medical Devices Implanted Type Area Director Of Estate Device Identifier Shelf Expiration Date Model / Serial / Lot Envista Intraocular Lens Implanted:Qty: 1 on 11/18/2021 by Noble Rivera MD at OR [facility] Right: Eye [employer] 10/05/2022 [id number] / [id number] / [id number] documented as of this encounter Results * (ABNORMAL) HEMOGLOBIN A1C (11/12/2022 8:31 AM EDT) Hemoglobin A1C 6.1(H) 4.0 - 5.6 % 11/12/2022 9:00 PM EDT LAB[facility] Comment:The use of HbA1c to monitor glycemic status is based on normal hemoglobin and HbA composition. This test should not be used in patients with abnormal hemoglobin that affects the half life of the red blood cell or the in vivo glycation rates. Estimated Average Glucose 128(H) <126 mg/dL 11/12/2022 9:00 PM EDT LABORATORY [facility] Blood Venous blood specimen / Unknown Venipuncture / Unknown 11/12/2022 8:31 AM EDT 11/12/2022 8:31 AM EDT Te Lassiter III, MD LAB BLOOD ORDERABLE S LABORATORY [facility] [address] [place] [address] * LIPID PANEL WITH DIRECT LDL IF TG IS HIGH (11/12/2022 8:31 AM EDT) Triglycerides 82 <=174 mg/dL 11/12/2022 8:59 PM EDT LABORATORY [facility] Comment: Triglyceride Reference Ranges (mg/dL): <150 Acceptable 150-174 Borderline high 175-499 High >=500 Very high Cholesterol 141 <200 mg/dL 11/12/2022 8:59 PM EDT LABORATORY [facility] Comment: Total Cholesterol Reference Ranges (mg/dL): <200 Desirable 200-239 Borderline high >=240 High HDL Cholesterol 49 >39 mg/dL 8:59 PM EDT LABORATORY [facility] Comment: HDL Cholesterol Reference Ranges (mg/dL): >=60 High (Desirable) <50 Low (Undesirable) For Females <40 Low (Undesirable) For Males Non-HDL Cholesterol 92 <=159 mg/dL 11/12/2022 8:59 PM EDT LABORATORY [facility] Comment: Non-HDL Cholesterol Reference Range (mg/dL): <100 Target level for high risk ASCVD patient <130 Optimal for general population 130-159 Near optimal for general population 160-189 Borderline High 190-219 High >=220 Very High LDL Cholesterol 76 <=129 mg/dL 11/12/2022 8:59 PM EDT LABORATORY [facility] Comment: LDL Cholesterol Reference Ranges (mg/dL): <70 Target level for high risk ASCVD patient <100 Optimal for general population 100-129 Near optimal for general population 130-159 Borderline high 160-189 High >=190 Very high Blood Venous blood specimen / Unknown Venipuncture / Unknown 11/12/2022 8:31 AM EDT 11/12/2022 8:31 AM EDT Te Lassiter III, MD LAB BLOOD ORDERABLE S LABORATORY [facility] [address] [place] [address] * (ABNORMAL) COMPREHENSIVE METABOLIC PANEL (11/12/2022 8:31 AM EDT) BUN 26(H) 6 - 20 mg/dL 11/12/2022 9:37 AM EDT LAB[facility]ORY [place] [facility] Creatinine 1.0 0.6 - 1.2 mg/dL 11/12/2022 9:37 AM EDT LAB[facility] [place] [facility] Estimated Glomerular Filtration Rate 85 >=60 mL/min 11/12/2022 9:37 AM EDT LAB[facility] [place] [facility] Comment:eGFR is calculated b ased on the CKD-EPI 2020 equation Sodium 141 135 - 146 mmol/L 11/12/2022 9:37 AM EDT LAB[facility] [place] [facility] Potassium 4.6 3.5 - 5.1 mmol/L 11/12/2022 9:37 AM EDT LAB[facility] [place] [facility] Chloride 104 98 - 107 mmol/L 11/12/2022 9:37 AM EDT LAB[facility] [place] [facility] CO2 23 22 - 32 mmol/L 11/12/2022 9:37 AM EDT LAB[facility] [place] [facility] Anion Gap 14 7 - 15 mmol/L 11/12/2022 9:37 AM EDT LAB[facility] [place] [facility] Glucose 114 70 - 120 mg/dL 11/12/2022 9:37 AM EDT LAB[facility] [place] [facility] Albumin 4.4 3.8 - 5.0 g/dL 11/12/2022 9:37 AM EDT [facility] [place] [facility] AST 52(H) 10 - 50 U/L 11/12/2022 9:37 AM EDT LAB[facility] [place] [facility] Alkaline Phosphatase 51 35 - 130 U/L 11/12/2022 9:37 AM EDT LAB[facility] [place] [facility] Bilirubin, Total 0.7 <=1.2 mg/dL 11/12/2022 9:37 AM EDT [facility] [place] [facility] Calcium 9.4 8.4 - 10.2 mg/dL 11/12/2022 9:37 AM EDT [facility] [place] [facility] Protein 7.4 6.0 - 8.3 g/dL 11/12/2022 9:37 AM EDT LAB[facility] [place] [facility] ALT 36 10 - 50 U/L 11/12/2022 9:37 AM EDT LAB[facility] [place] [facility] Blood Venous blood specimen / Unknown Venipuncture / Unknown 11/12/2022 8:31 AM EDT 11/12/2022 8:31 AM EDT Te Lassiter III, MD LAB BLOOD ORDERABLE S LAB[facility] [address] [place] [address] documented in this encounter Visit Diagnoses Diagnosis Preop examination- Primary Preoperative examination, unspecified HTN, goal below 140/90 Unspecified essential hypertension Dyslipidemia, goal LDL below 130 Other and unspecified hyperlipidemia Prediabetes Other abnormal glucose Routine medical exam Routine general medical examination at a [facility] care facility Screening for prostate cancer Special screening for malignant neoplasm of prostate Epiretinal membrane, right eye Macular puckering of retina documented in this encounter Care Teams Ground Operations Supervisor Relationship Specialty Start Date End Date Te Lassiter III, MD [address] [place] [address] PCP - General 09/06/02 documented as of this encounter
--- OUTSIDE RECORDS SUMMARY | 2023-03-17 23:10 | External Medical Summary ---
Author Name Unknown Address Unknown Organization [id number]:[facility] [address] [place] [address] Laboratory Report Ordering Provider Test Date Status ASHWINI OBRINE III 11/12/2022 08:31:00 Final Observation Date Value Abnormality Reference (Units ) Status HbA1C 11/12/2022 08:31:00 6.1 Above high normal 4. 0-5.6 (%) Final The use of HbA1c to monitor glycemic status is based on normal hemoglobin and HbA composition. This test should not be used in patients with abnormal hemoglobin that affects the half life of the red blood cell or the in vivo glycation rates. Glucose, estimated average 11/12/2022 08:31:00 128 Above high normal <126 (mg/dL) Koko ramirez Performing Location [facility] [address] [facility] [address]
--- OUTSIDE RECORDS SUMMARY | 2023-03-17 23:10 | External Medical Summary | Summary of Care ---
Author Name Unknown Organization [facility] Address [address] [place] [address] Phone [phone] Care Team Providers Care Lemon Grower Name Role Phone Maikol SHEPHERD MD, John E Primary Care Provider [phone] Reason for Visit * Reason Comments eRx-Medication Refill Encounter Details Date Type Department Care Team Description 11/17/2022 Refill Family Practice [facility] 200 [facility] [place] [id number] Camille Maradiaga III, MD 200 [facility] [place] [id number] Dyslipidemia, goal LDL below 130 Allergies No [...] THE MORNING 90 Tablet 1 11/18/2022 Active Atorvastatin Calcium 20 MG Oral Tablet [...] mRNA, LNP-s, No Pre serve, 2-Dose Series ([employer]) 02/10/2021,07/14/2020,06/16/2020 COVID-19, LNP-s, No Preserve , Popeye-sucrose, Ages 12+ (Pfizer) 12/28/2021 Covid-19, Mrna, Lnp-s, Pf, B ivalent, 30 Mcg, IM, 12 yrs and above ([employer]) 10/20/2022,03/17/2022 Pneumococcal Conjugate Vacci ne, 20-valent ([id number]) 10/20/2021 Seasonal Influenza, Quadriva lent, No Preserve, [...] Miscellaneous Notes * Telephone Encounter - Thad Szymanski [facility] - 11/18/2022 2:55 PM EDTSigned Prescriptions: Disp Refills Atorvastatin Calcium 20 MG Oral Tablet (Li*90 Tab*1 Sig: TAKE 1 TABLET BY MOUTH EVERY DAY IN THE MORNINGAuthorizing Provider: CAMILLE MARADIAGA III User: THAD SZYMANSKI documented in this encounter Plan of Treatment Upcoming Encounters Date Type Specialty Care Team Description 11/23/2022 Hospital Encounter Surgery Quentin Caldera MD [address] [place] [address] 11/23/2022 Surgery Surgery Qeuntin Caldera MD [address] [place] [address] RIGHT VITRECTOMY MECHANICAL PARS PLANA APPROACH REMOVAL OF PRERETINAL CELLULAR MEMBRANE 05/22/2023 Office Visit Family Medicine [place], [place] [address] [facility] [address] Scheduled Procedures Name Priority Associated Diagnoses Date/Ti [...] 0 09/2009, 09/09/2008 Colorectal Cancer Screening 07/14/2025 Lipid Panel 11/13/2027 11/12/2022, 0 11/2020, 04/16/2019, Additional history exists DTaP,Tdap,and Td [...] encounter Medical Devices Implanted Type Area Fruit Pitter Device Identifier Shelf Expiration Date Model / Serial / Lot Envista Intraocular Lens Implanted:Qty: 1 on 11/18/2021 by Noble Rivera MD at OR [facility] Right: Eye [employer] 10/05/2022 [id number] / [id number] / [id number] documented as of this encounter Visit Diagnoses Diagnosis Epiretinal membrane (ERM) of right eye- Primary Epiretinal membrane (ERM) of right eye Dyslipidemia, goal LDL below 130 Other and unspecified hyperlipidemia Epiretinal membrane, right eye Macular puckering of retina documented in this encounter Care Teams Lemon Grower Relationship Specialty Start Date End Date Camille Maradiaga III, MD [address] [place] [address] [place] [id number] PCP - General 09/06/02 documented as of this encounter
--- OUTSIDE RECORDS SUMMARY | 2023-03-17 23:10 | External Medical Summary ---
Author Name Unknown Address Unknown Organization [id number]:LAB[facility]ATORY [place] [facility] - [address] [place] [address] Laboratory Report Ordering Provider Test Date Status CAMILLEASHWINI III 11/12/2022 08:31:00 Final Observation Date Value Abnormality Reference (Units ) Status BUN 11/12/2022 08:31:00 26 Above high normal 6-20 (mg/dL) Final Creatinine 11/12/2022 08:31:00 1.0 0.6-1.2 (mg/dL) Final Glomerular filtration rate/1.73 sq M.predicted [Volume Rate/Area] in Serum, Plasma or Blood by Creatinine-based formula (CKD-EPI) 11/12/2022 08:31:00 85 >=60 (mL/min) Final eGFR is calculated based on the CKD-EPI 2020 equation SODIUM 11/12/2022 08:31:00 141 135-146 (m mol/L) Final Potassium 11/12/2022 08:31:00 4.6 3.5-5.1 (m mol/L) Final Cl 11/12/2022 08:31:00 104 98-107 (mm ol/L) Final CO2 11/12/2022 08:31:00 23 22-32 (mmo l/L) Final Anion gap 11/12/2022 08:31:00 14 7-15 (mmol /L) Final Glucose 11/12/2022 08:31:00 114 70-120 (mg /dL) Final Albumin 11/12/2022 08:31:00 4.4 3.8-5.0 (g /dL) Final AST (Aspartate aminotransferase) 11/12/2022 08:31:00 52 Above high normal 10-50 (U/L) Final Alk Phos 11/12/2022 08:31:00 51 35-130 (U/ L) Final Bilirubin, Total 11/12/2022 08:31:00 0.7 <=1 .2 (mg/dL) Final Calcium 11/12/2022 08:31:00 9.4 8.4-10.2 ( mg/dL) Final Protein 11/12/2022 08:31:00 7.4 6.0-8.3 (g /dL) Final ALT (Alanine aminotransferase) 11/12/2022 08:31:00 36 10-50 (U/L) Koko ramirez Performing Location LABORATORY [place] [facility] 0 - [address] [facility] [address]
--- OUTSIDE RECORDS SUMMARY | 2023-03-17 23:10 | External Medical Summary ---
Author Name Unknown Address Unknown Organization [id number]:LABORATORY [facility] - [address] [place] [address] Laboratory Report Ordering Provider Test Date Status ASHWINI OBRIEN III 11/18/2022 15:00:06 Final Normal: <30 mg/g creatinine< br/>High: 30-300 mg/g creatinine
Very High: >300 mg/g creatinine
Nephrotic: >2200 mg/g creatinine Observation Date Value Abnormality Reference (Units ) Status Albumin, Urine 11/18/2022 15:00:06 <1.20 (mg/dL) Final Creatinine, Urine 11/18/2022 15:00:06 191 (mg/dL) Final Albumin/Creatinine [Mass Ratio] in Urine 11/18/2022 15:00:06 <6 <30 (mg/g Creat) Final Performing Location LABORATORY [facility] - [address] [place] [address]
--- OUTSIDE RECORDS SUMMARY | 2023-03-17 23:10 | External Medical Summary | Summary of Care ---
Author Name Unknown Organization [facility] Address [address] [place] [address] Phone [phone] Care Team Providers Care Acoustical Installer Name Role Phone Maikol SHEPHERD MD, Te Pérez Primary Care Provider [phone] Reason for Visit * Reason Comments Outpatient Testing Encounter Details Date Type Department Care Team Description 11/12/2022 Laboratory Laboratory, [facility] [address] [facility] [place] [id number] [facility] 132 [facility] [place] [address] HTN, goal below 140/90; Dyslipidemia, goal LDL below 130; Prediabetes Allergies No known active allergiesdocumented as of this encounter (statuses as of 11/12/2022) Medications Medication Sig Dispensed Refills Start Date [...] as of this encounter (statuses as of 11/12/2022) Active Problems Problem Noted Date Prediabetes 06/20/2017 [...] as of this encounter (statuses as of 11/12/2022) Resolved Problems Problem Noted Date Resolved Date Mixed dyslipidemia 07/03/2006 04/21/2009 Overview: Per Lipid Taxonomy. documented as of this encounter (statuses as of 11/12/2022) Immunizations Name Administration Dates Next Due COVID-19 mRNA, LNP-s, No Pre serve, 2-Dose Series ([email or web address]) 02/10/2021,07/14/2020,06/16/2020 COVID-19, LNP-s, No Preserve , Popeye-sucrose, Ages 12+ (Pfizer) 12/28/2021 Covid-19, Mrna, Lnp-s, Pf, B ivalent, 30 Mcg, IM, 12 yrs and above ([email or web address]) 10/20/2022,03/17/2022 Pneumococcal Conjugate Vacci ne, 20-valent ([id number]) 10/20/2021 Seasonal Influenza, Quadriva lent, No Preserve, [...] [address] [place] [address] 11/23/2022 Surgery Surgery Quentin Caldera MD [address] [place] [address] RIGHT VITRECTOMY MECHANICAL PARS PLANA APPROACH REMOVAL OF PRERETINAL CELLULAR MEMBRANE 05/22/2023 Office Visit Family Medicine MaikolTe cervantes III, MD [address] [facility] [place] [address] Pending Results Name Type Priority Associated Diagnoses Date /Time COMPREHENSIVE METABOLIC PANEL Lab Routine HTN, goal below 140/90 Dyslipidemia, goal LDL below 130 Prediabetes 11/12/2022 8:31 AM EDT LIPID PANEL WITH DIRECT LDL IF TG IS HIGH Lab Routine HTN, goal below 140/90 Dyslipidemia, goal LDL below 130 Prediabetes 11/12/2022 8:31 AM EDT HEMOGLOBIN A1C Lab Routine HTN, goal below 140/90 Dyslipidemia, goal LDL below 130 Prediabetes 11/12/2022 8:31 AM EDT Scheduled Procedures Name Priority Associated Diagnoses Date/Ti me VITRECTOMY MECHANICAL PARS PLANA APPROACH REMOVAL OF PRERETINAL CELLULAR MEMBRANE Epiretinal membrane, right eye 11/23/2022 8:00 AM EDT Health Maintenance Due Date Last Done Comments Albumin/Creatinine Ratio 01/15/1974 Cologuard 01/15/2001 Fecal Occult Blood Test 01/15/2001 Sigmoidoscopy 01/15/2001 GFR 08/25/2022 08/25/2021, 0611/2020, 04/16/2019, Additional history exists HbA1c 08/25/2022 08/25/2021, 04/07, 03/31/2017, Additional history exists Influenza Vaccine (FLU shot) (#1) 2023 02/27/2020, 04/17/2019, 04/17/2018, Additional history exists Depression Screening, Annual for Pts 12 and Over 11/12/2023 11/11/2022 Colonoscopy 07/14/2025 07/15/2015, 05/0 09/2009, 09/09/2008 Colorectal [...] this encounter Medical Devices Implanted Type Area Aprn Device Identifier Shelf Expiration Date Model / Serial / Lot Envista Intraocular Lens Implanted:Qty: 1 on 11/18/2021 by Noble Rivera MD at OR [facility] Right: Eye [employer] 10/05/2022 [id number] / [id number] / [id number] documented as of this encounter Visit Diagnoses Diagnosis HTN, goal below 140/90 Unspecified essential hypertension Dyslipidemia, goal LDL below 130 Other and unspecified hyperlipidemia Prediabetes Other abnormal glucose Epiretinal membrane, right eye Macular puckering of retina documented in this encounter Care Teams Acoustical Installer Relationship Specialty Start Date End Date Te Lassiter III, MD [address] [facility] [place] [address] PCP - General 09/06/02 documented as of this encounter
[2023-03-18 00:48] LABS: C1 Esterase Inhibitor 38 mg/dL (21-39)
--- OUTSIDE RECORDS SUMMARY | 2023-03-18 13:24 | External Medical Summary | Summary of Care ---
Author Name Unknown Organization [facility] [address] [address] Phone [phone] Care Team Providers Care Solar Engineer Name Role Phone Maikol SHEPHERD MD, Te Pérez Primary Care Provider [phone] Reason for Visit * Reason Comments NEW PATIENT Buttock mass * Evaluate & Treat - Unlimited Visits (Within 3 days (urgent)) - Authorized Specialty Diagnoses / Procedures Referred By Enriqueta vincent Referred To Contact General Surgery Diagnoses Mass of buttock Yessenia Lopez MD [address] [facility] [address] Referral ID Status Reason Start Date Expiration Date Visits Requested Visits Authorized [id number] Authorized Specialty Services Required 3 [phone] Encounter Details Date Type Department Care Team (Late st Contact Info) Description 03/13/2023 9:15 AM EST Office Visit General Surgery, [facility] [address] [facility] [place] [address] Jagruti Forbes MD [address] [facility] [place] [address] Cellulitis of left buttock* Allergies No known active allergiesdocumented as of this encounter (statuses as of 03/13/2023) Medications Medication Sig Dispensed Refills Start Date [...] as of this encounter (statuses as of 03/13/2023) Active Problems Problem Noted Date Diagnosed Date [...] as of this encounter (statuses as of 03/13/2023) Resolved Problems Problem Noted Date Diagnosed Date Resolved Date Mixed dyslipidemia 07/03/2006 9 Overview: Per Lipid Taxonomy. documented as of this encounter (statuses as of 03/13/2023) Immunizations Name Administration Dates Next Due COVID-19 mRNA, LNP-s, No Pre serve, 2-Dose Series ([employer]) 02/10/2021,07/14/2020,06/16/2020 COVID-19, LNP-s, No Preserve , Popeye-sucrose, Ages 12+ (Pfizer) 12/28/2021 Covid-19, Mrna, Lnp-s, Pf, B ivalent, 30 Mcg, IM, 12 yrs and above (Pfizer) 10/20/2022,03/17/2022 Pneumococcal Conjugate Vacci ne, 20-valent ([id number]) 10/20/2021 SEASONAL INFLUENZA, PF, 6 M & [...] Sign Reading Time Taken Comments Blood Pressure 130/71 03/13/2023 9:16 AM EST Pulse 102 03/13/2023 9:16 AM EST Temperature - - Respiratory Rate - - Oxygen Saturation - - Inhaled Oxygen Concentration - - Weight 107 kg (235 lb 12.8 oz) 03/13/2023 9:16 A M EST Height - - Body Mass Index 32.9 11/11/2022 11:48 AM EDT documented in this encounter Progress Notes * Jagruti Forbes MD - 03/13/2023 9:48 AM EST HISTORY AND PHYSICAL EXAMINATION - General Surgery Name: Luis Whittington Date: 03/13/2023 Time: 9:48 AM Subjective PRESENTING PROBLEM: left buttock swelling, pain HISTORY OF PRESENT ILLNESS: Luis Luevano is a 68 year-old male who is referral for consult left buttock lump by Yessenia Carrasquillo. Pt presents with 2 weeks history a lump on left buttock with pain. Pt saw his PCP on 03/07/2023.Pt is on po antibiotic( Doxycycline). The lump is getting bigger with more redness and pain, the pain is 3/10. pt had one time chills, but pt denies fever. No diarrhea, or constipation. No abdominal pain. PROBLEM LIST: Patient Active Problem List Diagnosis Code Family history of other cardiovascular diseases Z82.49 Abdominal or pelvic swelling, mass, or lump, other specified site R19.09 Dyslipidemia, goal LDL below 130 E78.5 HTN, goal below 140/90 I10 Mild obstructive sleep apnea G47.33 Dysphagia R13.10 Impacted cerumen of left ear H61.22 Prediabetes R73.03 Epiretinal membrane (ERM) of right eye H35.371 Right retinal detachment H33.21 PAST MEDICAL HISTORY: Past Medical History: Diagnosis Date Abdominal or pelvic swelling, mass, or lump, other specified site 09/09/08 lump under right side of intestine-surgery recommended Acid reflux HTN, goal below 140/90 Hypertension, benign Mild obstructive sleep apnea 12/30/2012 12/16/12 PSG -- AHI 14.4 Mixed dyslipidemia 07/03/2006 PAST SURGICAL HISTORY: Past Surgical History: Procedure Laterality Date COLONOSCOPY W/ BIOPSY (RECTUM) 09/09/08 done submucosal mass in the appendix path pending COLONOSCOPY W/ SUBMUCOUS INJ 09/09/08 done submuosal mass in the appendix path pending COLONOSCOPY, DIAGNOSTIC (RECTUM) 09/09/09 submucosal mass noted in appendix COLONOSCOPY, DIAGNOSTIC (RECTUM) 07/15/2015 submucosal mass - [facility], FLEXIBLE, DIAGNOSTIC 05/26/11 wnl MISCELLANEOUS ORDER ([facility] ONLY) ACT 112 SIGNED, Dr. Fernandez (12-06-2018) REMOVAL OF APPENDIX REMOVE CATARACT, INSERT LENS PROSTH Right 11/18/2021 right EXTRACAPSULAR CATARACT REMOVAL WITH INTRAOCULAR LENS performed by Noble Rivera MD at OR [facility] REPAIR DETACHED RETINA, VITRECTOMY Right 12/12/2022 RIGHT REPAIR RETINAL DETACHMENT WITH VITRECTOMY performed by Quentin Caldera MD at OR [facility] REPAIR DETACHED RETINA, VITRECTOMY Right 01/18/2023 RIGHT REPAIR RETINAL DETACHMENT WITH VITRECTOMY performed by Quentin Caldera MD at OR [facility] REPAIR INITIAL INGUINAL HERNIA REDUCIBLE AGE 5 OR MORE VITRECTOMY W/ REMOVE OF EPIRETINAL MEMBRANE Right 11/23/2022 RIGHT VITRECTOMY MECHANICAL PARS PLANA APPROACH REMOVAL OF PRERETINAL CELLULAR MEMBRANE performed by Quentin Caldera MD at OR [facility] FAMILY HISTORY: Family History Problem Relation Age of Onset Thyroid Disorder Mother Cancer Father colon/Prostate Heart Disorder Father CABG Hypertension Father Hypertension Sister Cancer Brother colon Heart Disorder Brother quadruple bypass Diabetes No significant family history Eye Problems No significant family history Denies family h/o AMD, RD, glaucoma, or blindness Stroke No significant family history SOCIAL HISTORY: Social History Tobacco Use Smoking status: Never Smokeless tobacco: Never Vaping Use Vaping Use: Never used Substance Use Topics Alcohol use: Yes Comment: 3 cans daily at most, but not all the time Drug use: No CURRENT MEDICATIONS: Note that discontinued continue to display for 24 hours. Ordered medications to be given in the future also display. Current Outpatient Medications Medication Sig Dispense Refill CPAP every night at bedtime . Lisinopril 20 MG Oral Tablet (Prinivil) Take 1 Tablet by mouth in the morning. 90 Tablet 3 metFORMIN HCl ER 500 MG Oral Tablet Extended Release 24 Hour (Glucophage XR) TAKE 3 TABLETS BY MOUTH EVERY DAY 270 Tablet 2 Lisinopril-hydroCHLOROthiazide 20-25 MG Oral Tablet Take 1 Tablet by mouth in the morning. 90 Tablet 1 Atorvastatin Calcium 20 MG Oral Tablet (Lipitor) TAKE 1 TABLET BY MOUTH EVERY DAY IN THE MORNING 90Tablet 1 PARoxetine HCl 40 MG Oral Tablet (pAXil) TAKE 1 TABLET BY MOUTH EVERY DAY IN THE MORNING 90 Tablet 3 Doxycycline Hyclate 100 MG Oral Capsule Take 1 Capsule by mouth in the morning and 1 Capsule beforebedtime. Do all this for 10 days. Until gone.. 20 Capsule 0 No current facility-administered medications for this visit. ALLERGIES: Patient has no known allergies. ROS: Review of Systems Constitutional: Obesity HENT: Impacted cerumen of left ear Eyes: Right retinal detachment Respiratory: Mild obstructive sleep apnea Cardiovascular: HTN Gastrointestinal: Negative. Endocrine: Negative. Genitourinary: Negative. Musculoskeletal: Negative. Neurological: Negative. Hematological: Negative. Psychiatric/Behavioral: Negative. Objective PHYSICAL EXAMINATION: Most Recent Vital Signs: BP 130/71 | Pulse 102 | Wt 107 kg (235 lb 12.8 oz) | BMI 32.90 kg/m | BSA 2.31 m Physical Exam Constitutional: Appearance: Normal appearance. He is obese. HENT: Head: Normocephalic and atraumatic. Eyes: Pupils: Pupils are equal, round, and reactive to light. Cardiovascular: Rate and Rhythm: Normal rate and regular rhythm. Pulses: Normal pulses. Heart sounds: Normal heart sounds. Pulmonary: Effort: Pulmonary effort is normal. Breath sounds: Normal breath sounds. Abdominal: General: Abdomen is flat. Bowel sounds are normal. Palpations: Abdomen is soft. Comments: Some redness and tenderness at left buttock, size about 8x10 cm. Hard to tall cellulitis or abscess. Musculoskeletal: Cervical back: Normal range of motion and neck supple. Skin: General: Skin is warm and dry. Neurological: General: No focal deficit present. Mental Status: He is alert and oriented to person, place, and time. Psychiatric: Mood and Affect: Mood normal. Behavior: Behavior normal. LABS: Labs reviewed as indicated below:none IMAGING: N/A IMPRESSION and PLAN: IMP: left buttock infection, Plan, pt is a 68 year-old male who presents with 2 weeks history left buttock lump , pain, with redness. Recommend to pt needs to go to ER for CT scan pelvic to R/O perirectal abscess. And check CBC,CMP. Pt agreed with the plan, pt will go to ER now. PRIMARY CARE PHYSICIAN: Te Lassiter III, MD documented in this encounter Nursing Notes * Tamanna Hernandez LPN - 03/13/2023 9:17 AM EST Chief Complaint Patient presents with NEW PATIENT Buttock mass Patient states it just appeared, it was small and then Monday he went to Drs and they just sent him in here, no imaging but they did put him on an antibiotic. documented in this encounter Plan of Treatment Upcoming Encounters Date Type Department Care Team (Late st Contact Info) Description 05/22/2023 9:00 AM EST Office Visit Family Practice [facility] [address] [facility] [place] [address] Te Lassiter III, MD [address] [facility], [place] [address] Scheduled Referrals Name Type Priority Associated Diagnoses [...] this encounter Medical Devices Implanted Type Area Mail Sorter Device Identifier Shelf Expiration Date Model / Serial / Lot Envista Intraocular Lens Implanted:Qty: 1 on 11/18/2021 by Noble Rivera MD at OR [facility] Right: Eye [employer] 10/05/2022 [id number] / [id number] / [id number] Adatosil 5000 Oil Es 5000 S - [id number] - [id number] Implanted:Qty: 1 on 01/18/2023 by Quentin Caldera MD at OR [facility] Right: Eye [employer] : SURGICAL 05/07/2025 ES 5000 S / [id number] / [id number] documented as of this encounter Visit Diagnoses Diagnosis Cellulitis of left buttock- Primary Cellulitis and abscess of buttock documented in this encounter Advance Directives Latest [...] Discussed due to patient's condition Care Teams Solar Engineer Relationship Specialty Start Date End Date Maikol III, Te Pérez MD [address] [facility] [place], [place] [address] PCP - General 09/06/02 documented as of this encounter"
== END 2023-03-16 15:59 | disposition home or self-care (01) | DRG 344 ==
LOC: ED 09:51 → SUATTDRO 16:05 → EDINP 16:05 → 3W 18:12 → 1E 03-14 05:28 → 2N 03-15 13:00
DX: K61.1 Rectal abscess; K21.9 Gastro-esophageal reflux disease without esophagitis; Z79.84 Long term (current) use of oral hypoglycemic drugs; T36.0X5A Adverse effect of penicillins, initial encounter; I10 Essential (primary) hypertension; L02.31 Cutaneous abscess of buttock; T46.4X5A Adverse effect of angiotensin-converting-enzyme inhibitors, initial encounter; K65.1 Peritoneal abscess; I45.10 Unspecified right bundle-branch block; G47.33 Obstructive sleep apnea (adult) (pediatric); T78.3XXA Angioneurotic edema, initial encounter; Y92.239 Unspecified place in hospital as the place of occurrence of the external cause; E78.5 Hyperlipidemia, unspecified; R22.0 Localized swelling, mass and lump, head; R73.03 Prediabetes; L03.317 Cellulitis of buttock